=== PATIENT | female | born 1960 | race Caucasian/White ===

== ENCOUNTER 2016-10-23 19:29 | Inpatient (IN) ==
--- NOTE | 2016-10-23 19:52 | Emergency Department Report ---
Psych HPI - General Stated Complaint: Evaluation for [facility] Time Seen by Provider: 10/23/16 19:45 Source: patient Mode of arrival: ambulatory Limitations: no limitations - History of Present Illness HPI Narrative: She lives in a NH in [facility]. Has had her medications changed recently and staff at the NH have noticed that she is more aggressive and having some out bursts. They have been accepted to the [facility] unit here in [place] and are in [place] for medical clearance. She has not had any other concerns. MD complaint: other (increased aggressiveness) Onset (ago): day(s) Duration: constant Prior Hospitalization: No Relieving factors: none Exacerbating factors: none Associated psychiatric symptoms: none Associated symptoms: denies other symptoms Treatments prior to arrival: none Review of Systems Constitutional: Denies: fever, chills Cardiovascular: Denies: dyspnea on exertion Respiratory: Denies: cough, dyspnea, wheezes Gastrointestinal: Denies: nausea, vomiting, diarrhea, constipation Integumentary: Denies: rash PFSH Frontal/temporal dementia Surgical History: Unable to obtain - Social History Smoking status: Never smoker Substance use type: does not use Alcohol intake frequency: does not drink Physical Exam - Limitations Limitations: altered mental status - General General appearance: alert - Normal Exams: Neck:: Full range of motion, without adenopathy, JVD, bruits or thyromegaly Chest/Respirations:: Clear all burrows, with good airflow, and symmetry bilaterally Cardiovascular:: Regular rate and rhythm, without murmur or gallop, Pulses 2+ all extremities, capillary refill, <2 seconds all extremities Abdomen:: Bowel sounds positive, soft, non-tender, non-distended, no hepatosplenomegaly, masses or bruits noted Lymphatic:: No lymphadenopathy, or lymphedema noted Integumentary:: No rashes, hives, or bruising noted Neurological:: Patient is alert Psychiatric:: Patient exhibits, appropriate attention, emotion and affect - Psychiatric Psychiatric exam: Present: other (She is very active and is pacing around in the unit. Is redirectable) Psych - Differential Diagnosis Likely: acute psychosis, depression, drug-induced psychotic disorder, acute anxiety Disposition Clinical Impression: Dementia with behavioral problem Qualifiers: Dementia type: associated with other underlying disease Qualified Code(s): F02.81 - Dementia in other diseases classified elsewhere with behavioral disturbance Disposition: 63 To Psych Hosp/Unit Print Language: Emirati Condition: Stable Time of Disposition: 19:53 - Seen By: midlevel
--- OUTSIDE RECORDS SUMMARY | 2016-10-23 19:59 | External Medical Summary | Continuity of Care Document ---
:1960 Author Organization [facility] Allergies Active Description Code Type Severity Reaction Onset Reported/ Identified Relationship Clinical to Patient Status Yes No Known No Drug Unknown N/A 09/16/2015 Allergies Known Aller Aller gy gies Medications Problems Procedures Results Test Result Range CHEM/HEM PROFILE-BEDSIDE - 09/16/15 14:51 POTASSIUM 3.7 mmol/L 3.5-5.3 METHOD Bedside ANION GAP 19 mmol/L 10-20 METHOD Bedside GLUCOSE 86 mg/dL 70-99 BLOOD UREA NITROGEN 9 mg/dL 7-20 CREATININE 0.8 mg/dL 0.6-1.0 HEMOGLOBIN 13.6 gm/dL 12.0-16.0 HEMATOCRIT 40.0 % 37.0-47.0 SODIUM 140 mmol/L 135-148 CHLORIDE 107 mmol/L 98-110 CARBON DIOXIDE 18 mmol/L 21-32 CALCIUM IONIZED 4.4 mg/dL 4.5-5.3 TROPONIN I BEDSIDE - 09/16/15 14:55 METHOD Bedside TROPONIN I < 0.04 ng/mL < 0.11 URINALYSIS, ROUTINE - 09/16/15 17:35 UA LEUKOCYTE ESTERASE DIPSTICK NEGATIVE NEGATIVE UA NITRITE DIPSTICK NEGATIVE NEGATIVE UA PROTEIN DIPSTICK NEGATIVE NEGATIVE UA GLUCOSE DIPSTICK NEGATIVE NEGATIVE UA KETONE DIPSTICK NEGATIVE NEGATIVE UA UROBILINOGEN DIPSTICK NORMAL NORMAL UA BILIRUBIN DIPSTICK NEGATIVE NEGATIVE UA BLOOD DIPSTICK NEGATIVE NEGATIVE UA SPECIFIC GRAVITY 1.020 1.015-1.025 UR PH 7.0 5.0-7.0 Encounters ACCT Visit Discharge Status Pt. Type Provider Facility Loc./Unit Complaint No. Date/Time [id number] 09/16/2015 09/16/2015 DIS Emergency Tawny MESSER, Avery ReillyEDS [id number] 13:34:00 18:07:00 [facility]
--- OUTSIDE RECORDS SUMMARY | 2016-10-23 19:59 | External Medical Summary | Referral Summary ---
:1960 Author Organization [facility] Address [address] [place] [address] Care Team Providers Name Role Phone Isaiah Thomas Primary Care Physician Encounter [facility] [id number] Date(s): 08/09/15 - 08/09/15 [facility] Medicine [address] [place] [address]- [place] Discharge Diagnosis: Dementia Discharge Diagnosis: Depression Discharge Diagnosis: Shoulder pain Discharge Disposition: -Home or Self Care Attending Physician: Isaiah Thomas MD Admitting Physician: Isaiah Thomas MD Vital Signs Most recent to oldest [Reference Range]: 1 Blood Pressure [90-140/60-90 mmHg] 118/72mmHg (08/09/15 11:11 AM) Problem List Condition Effective Dates Status Health Status Informant Dementia(Confirmed) Active Depression(Confirmed) Active Skin disorder(Confirmed) Active Kidney disease(Confirmed) Active Kidney stones(Confirmed) Active Osteoarthritis(Confirmed) Active TMJ disease(Confirmed) Active Allergies, Adverse Reactions, Alerts No Known Medication Allergies Medications busPIRone 5 mg oral tablet 5 mg 1 tabs, Oral, BID, # 60 tabs, 5 Refill(s), Pharmacy: [facility], 1 tabs Oral BID,x30 days Start Date: 08/09/15 Stop Date: 02/05/16 Status: Ordereddiclofenac 1% topical gel 1 dayna, Topical, QID, as needed for pain, # 100 g, 5 Refill(s), Pharmacy: [facility] Start Date: 03/28/15 Status: OrderedPARoxetine 40 mg oral tablet 40 mg 1 tabs, Oral, Daily, # 30 tabs, 5 Refill(s) Start Date: 08/09/15 Stop Date: 02/05/16 Status: Ordered Results No data available for this section Immunizations Vaccine Date Refusal Reason influenza virus vaccine, inactivated 03/28/15 influenza virus vaccine, inactivated 03/28/14 Procedures Procedure Date Related Diagnosis Body Site section Social History Social History Type Response Smoking Status Never smoker Assessment and Plan Extracted from: Title:Office Visit Note Author:Isaiah Thomas MD Date:08/09/15 Assessment/Plan 1.Shoulder pain Follow-up with orthopedics as scheduled 2.Dementia 3.Depression Increaseparoxetine seen to 40 mg daily A new prescription for BuSpar was provided. Dosage, benefits and side effects were discussed. For details on dosing and instructions, please refer to the medication list. Followup if no improvement. [ ] Anticipate follow-up within the next couple months Orders: busPIRone, 5 mg 1 tabs, Oral, BID, # 60 tabs, 5 Refill(s), [facility], 1 tabs Oral BID,x30 days PARoxetine, 40 mg 1 tabs, Oral, Daily, # 30 tabs, 5 Refill(s)
--- OUTSIDE RECORDS SUMMARY | 2016-10-23 19:59 | External Medical Summary ---
:1960 Author Organization [employer] Care Team Providers Name Role Phone Joseph Latham Provider Role Unavailable Allergies No Known Allergies Problems Problem Type Condition ICD-9 Code Onset Dates Condition Status Assessment Frontotemporal dementia 331.19 Active Medications No Known Medications Procedures Procedure Coding System Code Date PSYTX PT&/FAMILY 45 MINUTES CPT-4 66931 Mar 20, 2014 NEUROPSYCH TST BY PSYCH/PHYS CPT-4 21149 Mar 20, 2014 Results No Known Results Summary Purpose [employer] Submission
--- OUTSIDE RECORDS SUMMARY | 2016-10-23 19:59 | External Medical Summary ---
:1960 Author Organization [employer] Care Team Providers Name Role Phone Adelso Portillo Provider Role Unavailable Allergies No Known Allergies Problems No Known Problems Medications No Known Medications Results No Known Results Summary Purpose [employer] Submission
--- OUTSIDE RECORDS SUMMARY | 2016-10-23 19:59 | External Medical Summary | Referral Summary ---
:1960 Author Care Team Providers Name Role Phone Isaiah Thomas Primary Care Physician Encounter [facility] Date(s): 07/14/14 - 07/14/14 [facility] [address] [place], [place] [address] Discharge Disposition: Home or Self Care Attending Physician: Isaiah Thomas MD Admitting Physician: Isaiah Thomas MD Vital Signs Most recent to oldest [Reference Range]: 1 Peripheral Pulse Rate [60-100 bpm] 73 bpm (07/14/14 3:36 PM) Blood Pressure [90-140/60-90 mmHg] 132/66mmHg (07/14/14 3:36 PM) Most recent to oldest [Reference Range]: 1 SpO2 99 % (07/14/14 3:36 PM) Problem List Condition Effective Dates Status Health Status Informant Depression(Confirmed) Active Skin disorder(Confirmed) Active Kidney disease(Confirmed) Active Kidney stones(Confirmed) Active Osteoarthritis(Confirmed) Active TMJ disease(Confirmed) Active Allergies, Adverse Reactions, Alerts No Known Medication Allergies Medications Augmentin 875 mg-125 mg oral tablet 1 tabs, Oral, q12hr, X 10 days, # 20 tabs, 0 Refill(s), Pharmacy: [facility] #[id number] Start Date: 07/14/14 Stop Date: 07/24/14 Status: Ordereddiclofenac potassium 50 mg oral tablet 1 tabs, Oral, q8hr, as needed for pain, # 30 tabs, 0 Refill(s), Pharmacy: [email or web address], 1 tabs Oral q8hr,PRN:as needed for pain Start Date: 03/29/14 Status: OrderedDiflucan 150 mg oral tablet See Instructions, 1 po one time. May repeat after 3 days if needed., # 1 tabs, 1 Refill(s), Pharmacy: [facility] #[id number], 1 po one time. May repeat after 3 days if needed. Special Instructions: 1 po one time. May repeat after 3 days if needed. Start Date: 07/14/14 Stop Date: 07/15/14 Status: OrderedNamenda Oral, BID, 0 Refill(s) Start Date: 07/14/14 Status: OrderedPaxil 20 mg oral tablet 1 tabs, Oral, Daily, # 30 tabs, 3 Refill(s), Pharmacy: [id number], 1 tabs Oral Daily Start Date: 04/28/14 Status: OrderedPromethazine with Codeine 6.25 mg-10 mg/5 mL oral syrup See Instructions, as needed for cough, 1-2 tsp po q 6hrs prn cough, # 4 oz, 0 Refill(s) Special Instructions: 1-2 tsp po q 6hrs prn cough Start Date: 07/14/14 Stop Date: 07/15/14 Status: Ordered Results No data available for this section Immunizations Vaccine Date Refusal Reason influenza virus vaccine, inactivated 03/28/14 Procedures Procedure Date Related Diagnosis Body Site section Social History Social History Type Response Smoking Status Unknown if ever smoked Assessment and Plan No data available for this section
--- OUTSIDE RECORDS SUMMARY | 2016-10-23 19:59 | External Medical Summary ---
:[address] [facility] Address [address] [place] [address] Care Team Providers Name Role Phone Adelso Portillo Unavailable Unavailable PROBLEMS Type Condition ICD9-CM GGQ55-TS Onset Condition SNOMED Code Code Code Dates Status Problem Osteoarthritis of M19.012 Active 97529049 left shoulder, unspecified osteoarthritis type Problem Depressive F06.31 Active disorder due to another medical condition with depressive features Problem Pain in left M25.512 Active 80204875 shoulder Problem Other chronic pain G89.29 Active 88914072 Problem Other G31.09 Active 201298538 frontotemporal dementia Problem Anxiety F41.9 Active 68623186 Problem 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
--- OUTSIDE RECORDS SUMMARY | 2016-10-23 19:59 | External Medical Summary ---
:1960 Author Organization [employer] Care Team Providers Name Role Phone Joseph Latham Provider Role Unavailable Allergies No Known Allergies Problems Problem Type Condition ICD-9 Code Onset Dates Condition Status Assessment Unspecified persistent mental 294.9 Active disorders due to conditions classified elsewhere Medications No Known Medications Procedures Procedure Coding System Code Date NEUROPSYCH TESTING BY JODIE CPT-4 21090 Feb 27, 2014 Results No Known Results Summary Purpose [employer] Submission
--- OUTSIDE RECORDS SUMMARY | 2016-10-23 19:59 | External Medical Summary ---
:1960 Demographics Preferred Language Unknown Marital Status Unknown Anglican Affiliation Unknown Race Unknown Ethnic Group Unknown Author Organization [employer] Care Team Providers Name Role Phone Adelso Portillo Provider Role Unavailable Allergies, Adverse Reactions, Alerts Substance Reaction Event Type Namenda "adverse side effect" listed in medical record Drug Allergy buspirone "adverse side effect" listed in medical record Drug Allergy Problems Problem Type Condition Code Onset Dates Condition Status Assessment Dementia in other diseases F02.81 Active classified elsewhere with behavioral disturbance Assessment Osteoarthritis, unspecified M19.90 Active osteoarthritis type, unspecified site Assessment Other frontotemporal dementia G31.09 Active Assessment Depressive disorder due to another F06.31 Active medical condition with depressive features Assessment Anxiety F41.9 Active Assessment Insomnia due to medical condition G47.01 Active Medications Medication Code System Code Instructions Start Date End Date Status Dosage Seroquel NDC 70751 25 mg orally daily 1 tab(s) Mobic NDC 74889 7.5 mg orally once Jan 17, 1 tab(s) a day 2015 Xanax NDC 1327 0.5 mg orally q6hr 1 tab(s) PRN anxiety melatonin NDC 93855 3 mg orally once 1 tab(s) (at bedtime) Paxil NDC 4517 40 mg orally once a 1 tab(s) day Procedures Procedure Coding System Code Date SNF Initial Level 2 CPT-4 68320 Dec 20, 2015 Results No Known Results Summary Purpose [employer] Submission
--- OUTSIDE RECORDS SUMMARY | 2016-10-23 19:59 | External Medical Summary ---
:1960 Author Organization [employer] Care Team Providers Name Role Phone Robby Barraza Provider Role Unavailable Allergies, Adverse Reactions, Alerts Substance Reaction Event Type Wellbutrin Not specified. Drug Allergy Celexa Not specified. Drug Allergy Problems Problem Type Condition ICD-9 Code Onset Dates Condition Status Assessment Diverticulitis 562.11 Active Assessment URI (upper respiratory 465.9 Active infection) Problem Generalized anxiety disorder 300.02 Active Assessment Dysuria 788.1 Active Medications Medication Code System Code Instructions Start Date End Date Status Dosage Mobic MEDISPAN [address] 15 MG Orally Once Jun 06, Active 1 tablet -01 a day 2013 Bactrim DS MEDISPAN [address] 800-160 MG Orally Feb 07, Active 1 tablet -01 every 12 hrs 2013 Paxil MEDISPAN [address] 20 MG Orally Once Jan 15, Active 1 TABLET -13 a day 2010 Procedures Procedure Coding System Code Date OFFICE VISITEST PT CPT-4 82034 Feb 07, 2014 URINALYSIS CPT-4 13723 Feb 07, 2014 Vital Signs Date/Time: Feb 07, 2014 Blood Pressure Systolic 126 mm Hg Height 60 in Weight 137.0 lbs Blood Pressure Diastolic 78 mm Hg Results Urinalysis OTHER CASTS(-NONE/LPF lpf) 0 MUCOUS(-NONE/HPF hpf) 0 CRYSTALS(-NONE/HPF hpf) 0 WBC(-0-5/HPF hpf) 0 RBC(-0-2/HPF hpf) 0 SQUAMOUS EPITH(-FEW/HPF hpf) 0 BACTERIA(-NONE/HPF hpf) 0 Summary Purpose [employer] Submission
--- OUTSIDE RECORDS SUMMARY | 2016-10-23 19:59 | External Medical Summary | Referral Summary ---
:1960 Author Organization [facility] Address [address] [place] [address] Care Team Providers Name Role Phone Isaiah Thomas Primary Care Physician Encounter [facility] [id number] Date(s): 10/25/15 - 10/25/15 [facility] Medicine [address] [place] [address]- [place] Discharge Disposition: 01-Home or Self Care Attending Physician: Isaiah Thomas MD Admitting Physician: Isaiah Thomas MD Vital Signs Most recent to oldest [Reference Range]: 1 Blood Pressure [90-140/60-90 mmHg] 122/68mmHg (10/25/15 1:23 PM) Problem List Condition Effective Dates Status Health Status Informant Dementia(Confirmed) Active Depression(Confirmed) Active Skin disorder(Confirmed) Active Mixed dyslipidemia(Confirmed) Active Kidney disease(Confirmed) Active Kidney stones(Confirmed) Active Osteoarthritis(Confirmed) Active TMJ disease(Confirmed) Active Allergies, Adverse Reactions, Alerts No Known Medication Allergies Medications amoxicillin 875 mg oral tablet 875 mg 1 tabs, Oral, BID, X 7 days, # 14 tabs, 0 Refill(s), Pharmacy: [facility], 1 tabs Oral BID,x7 days Start Date: 10/25/15 Stop Date: 11/01/15 Status: Ordereddiclofenac 1% topical gel 1 dayna, Topical, QID, as needed for pain, # 100 g, 5 Refill(s), Pharmacy: [facility] Start Date: 03/28/15 Status: OrderedPARoxetine 40 mg oral tablet 40 mg 1 tabs, Oral, Daily, # 30 tabs, 5 Refill(s) Start Date: 08/09/15 Stop Date: 02/05/16 Status: OrderedXanax 0.25 mg oral tablet 0.25 mg 1 tabs, Oral, Daily, as needed for anxiety, X 30 days, # 30 tabs, 0 Refill(s) Start Date: 10/25/15 Stop Date: 11/24/15 Status: Ordered Results Urinalysis Most recent to oldest [Reference Range]: 1 UA Color Yellow (10/25/15 1:38 PM) UA Appear Sl Cloudy (10/25/15 1:38 PM) UA pH [5.0-8.0] 5.0 (10/25/15 1:38 PM) UA Leuk Est [Negative] Negative (10/25/15 1:38 PM) UA Nitrite [Negative] Negative (10/25/15 1:38 PM) UA Protein [Negative] Negative (10/25/15 1:38 PM) UA Glucose [Negative] Negative (10/25/15 1:38 PM) UA Ketones [Negative] Negative (10/25/15 1:38 PM) UA Urobilinogen [<=1.0 mg/dL] 0.2 mg/dL (10/25/15 1:38 PM) UA Bili [Negative] Negative (10/25/15 1:38 PM) UA Blood [Negative] Trace *ABN* (10/25/15 1:38 PM) UA Spec Grav [1.003-1.030] >=1.030 (10/25/15 1:38 PM) Type Cl Catch (10/25/15 1:38 PM) UA WBC [0-4] 5-10 *ABN* (10/25/15 1:38 PM) UA RBC [0-4] 0-4 (10/25/15 1:38 PM) Epithelial Cells 2-5 (10/25/15 1:38 PM) UA Hyal Cast [0-3] 4-6 *ABN* (10/25/15 1:38 PM) Immunizations Vaccine Date Refusal Reason influenza virus vaccine, inactivated 03/28/15 influenza virus vaccine, inactivated 03/28/14 Procedures Procedure Date Related Diagnosis Body Site section Social History Social History Type Response Smoking Status Never smoker Assessment and Plan No data available for this section
--- OUTSIDE RECORDS SUMMARY | 2016-10-23 19:59 | External Medical Summary | Referral Summary ---
:1960 Author Organization [facility] Address [address] [place] [address] Care Team Providers Name Role Phone Isaiah Thomas Primary Care Physician Encounter [facility] Date(s): 03/28/15 - 03/28/15 [facility] Medicine [address] [place] [address]- [place] Discharge Disposition: 01-Home or Self Care Attending Physician: Isaiah Thomas MD Admitting Physician: Isaiah Thomas MD Vital Signs Most recent to oldest [Reference Range]: 1 Peripheral Pulse Rate [60-100 bpm] 64 bpm (03/28/15 10:17 AM) Blood Pressure [90-140/60-90 mmHg] 122/80mmHg (03/28/15 10:17 AM) SpO2 99 % (03/28/15 10:17 AM) Problem List Condition Effective Dates Status Health Status Informant Depression(Confirmed) Active Skin disorder(Confirmed) Active Kidney disease(Confirmed) Active Kidney stones(Confirmed) Active Osteoarthritis(Confirmed) Active TMJ disease(Confirmed) Active Allergies, Adverse Reactions, Alerts No Known Medication Allergies Medications diclofenac 1% topical gel 1 dayna, Topical, QID, as needed for pain, # 100 g, 5 Refill(s), Pharmacy: [facility] Start Date: 03/28/15 Status: Ordereddiclofenac potassium 50 mg oral tablet 1 tabs, Oral, q8hr, as needed for pain, # 30 tabs, 0 Refill(s), Pharmacy: [id number], 1 tabs Oral q8hr,PRN:as needed for pain Start Date: 03/29/14 Status: OrderedPARoxetine 20 mg oral tablet See Instructions, TAKE 1 TABLET BY MOUTH EVERY DAY, # 30 tabs, 11 Refill(s), Pharmacy: [facility], TAKE 1 TABLET BY MOUTH EVERY DAY Start Date: 03/28/15 Status: Ordered Results Hematology Most recent to oldest [Reference Range]: 1 WBC [4.8-10.8 10*3/uL] 5.9 10*3/uL (03/28/15 11:11 AM) RBC [4.00-5.20] 4.38 (03/28/15 11:11 AM) Hgb [12.0-16.0 gm/dL] 14.2 gm/dL (03/28/15 11:11 AM) Hct [37.0-47.0 %] 39.2 % (03/28/15 11:11 AM) MCV [82.0-99.0 fL] 89.5 fL (03/28/15 11:11 AM) MCH [27.0-32.0 pg] 32.4 pg *HI* (03/28/15 11: AM) MCHC [32.0-36.0 gm/dL] 36.2 gm/dL *HI* (03/28/15 11:11 AM) RDW [11.5-14.5 %] 11.9 % (03/28/15 11:11 AM) Platelet [150-400 10*3/uL] 308 10*3/uL (03/28/15 11:11 AM) MPV [8.8-14.8 fL] 9.8 fL (03/28/15 11:11 AM) Immature Granulocytes [0.0-1.0 %] 0.0 % (03/28/15 11:11 AM) Neutrophils [51-75 %] 62 % (03/28/15 11:11 AM) Lymphocytes [20-46 %] 24 % (03/28/15 11:11 AM) Monocytes [4-11 %] 8 % (03/28/15 11:11 AM) Eosinophils [0-4 %] 4 % (03/28/15 11:11 AM) Basophils [0-2 %] 2 % (03/28/15 11:11 AM) Neutro Absolute [1.90-7.00 10*3] 3.64 10*3 (03/28/15 11:11 AM) Lymph Absolute [0.80-3.30 10*3] 1.42 10*3 (03/28/15 11:11 AM) [place] Absolute [0.30-1.00 10*3] 0.49 10*3 (03/28/15 11:11 AM) Eos Absolute [0.00-0.50 10*3] 0.22 10*3 (03/28/15 11:11 AM) Baso Absolute [0.00-0.20 10*3] 0.09 10*3 (03/28/15 11:11 AM) Chemistry Most recent to oldest [Reference Range]: 1 Sodium Lvl [135-144 mEq/L] 140 mEq/L (03/28/15 11: AM) Potassium Lvl [3.5-5.2 mEq/L] 4.1 mEq/L (03/28/15 11: AM) Chloride [99-111 mEq/L] 106 mEq/L (03/28/15 11: AM) CO2 [22-31 mEq/L] 27 mEq/L (03/28/15: AM) AGAP [3-20] 7 (03/28/15 11: AM) BUN [10-20 mg/dL] 9 mg/dL *LOW* (03/28/15 AM) Glucose Lvl [70-99 mg/dL] 92 mg/dL (03/28/15 11: AM) Creatinine Lvl [0.57-1.11 mg/dL] 0.78 mg/dL (03/28/15 11: AM) eGFR [>60 mL/min] >60 mL/min1 (03/28/15: AM) Calcium Lvl [8.9-10.5 mg/dL] 9.1 mg/dL (03/28/15 11: AM) Albumin Lvl [3.5-5.0 gm/dL] 3.9 gm/dL (03/28/15 AM) Total Protein [6.4-8.3 gm/dL] 6.0 gm/dL *LOW* (03/28/15 AM) Globulin [1.8-4.0 gm/dL] 2.1 gm/dL (03/28/15 11 AM) ALT [0-55 U/L] 40 U/L (03/28/15 11:11 AM) AST [5-34 U/L] 41 U/L *HI* (03/28/15 11 AM) Alk Phos [40-150 U/L] 98 U/L (03/28/15 AM) Bili Total [0.2-1.2 mg/dL] 0.5 mg/dL (03/28/15 AM) Chol [0-199 mg/dL] 239 mg/dL *HI* (03/28/15 AM) Trig [0-149 mg/dL] 113 mg/dL (03/28/15 11 AM) HDL [40-84 mg/dL] 43 mg/dL (03/28/15 AM) LDL [0-130 mg/dL] 173 mg/dL *HI* (03/28/15 AM) VLDL Cholesterol [0-28 mg/dL] 23 mg/dL (03/28/15 AM) Cardiac Risk [0.0-5.0] 5.6 *HI* (03/28/15 AM) TSH with Reflex Free T4 [0.35-4.94] 1.39 (03/28/15 11: AM) 1Result Comment: Multiply eGFR results by 1.21 for race.Urinalysis Most recent to oldest [Reference Range]: 1 UA Color Yellow (03/28/15 10:33 AM) UA Appear Clear (03/28/15 10:33 AM) UA pH [5.0-8.0] 6.5 (03/28/15 10:33 AM) UA Leuk Est [Negative] Negative (03/28/15 10:33 AM) UA Nitrite [Negative] Negative (03/28/15 10:33 AM) UA Protein [Negative] Trace *ABN* (03/28/15 10:33 AM) UA Glucose [Negative] Negative (03/28/15 10:33 AM) UA Ketones [Negative] Trace *ABN* (03/28/15 10:33 AM) UA Urobilinogen 1.0 mg/dL (03/28/15 10:33 AM) UA Bili [Negative] Positive *ABN* (03/28/15 10:33 AM) UA Blood Negative (03/28/15 10:33 AM) UA Spec Grav [1.003-1.030] 1.015 (03/28/15 10:33 AM) Type Clean Catch (03/28/15 10:33 AM) Immunizations Vaccine Date Refusal Reason influenza virus vaccine, inactivated 03/28/15 influenza virus vaccine, inactivated 03/28/14 Procedures Procedure Date Related Diagnosis Body Site Collection of venous blood by venipuncture 03/28/15 section Social History Social History Type Response Smoking Status Never smoker Assessment and Plan No data available for this section
--- OUTSIDE RECORDS SUMMARY | 2016-10-23 19:59 | External Medical Summary ---
:1960 Author Organization [facility] Spec Address [address] [place] [address] Care Team Providers Name Role Phone Adelso Portillo Unavailable Unavailable PROBLEMS Type Condition ICD9-CM [id number] Onset Condition SNOMED Code Code Code Dates Status Problem Osteoarthritis of M19.012 Active 73916648 left shoulder, unspecified osteoarthritis type Problem Depressive F06.31 Active disorder due to another medical condition with depressive features Problem Pain in left M25.512 Active 23743154 shoulder Assessment Dementia in other F02.81 25 September, Active 7583178363251 diseases 2017 classified elsewhere with behavioral disturbance Problem Other chronic pain G89.29 Active 76881960 Problem Other G31.09 Active 459416954 frontotemporal dementia Problem Anxiety F41.9 Active 37344206 Problem 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 Active medical condition Problem Dementia in other F02.81 Active 5967150702422 diseases classified elsewhere with behavioral disturbance Problem Osteoarthritis, M19.90 Active 774031075 unspecified osteoarthritis type, unspecified site ALLERGIES Substance Reaction Event Type Date Status Namenda "adverse side effect" listed in medical Drug Allergy September, Active record buspirone "adverse side effect" listed in medical Drug Allergy September, Active record SOCIAL HISTORY No smoking Hx information available PLAN OF CARE VITAL SIGNS MEDICATIONS Medication Instructions Dosage Frequency Start End Duration Status Date Date Paxil 40 mg orally once a day 1 tab(s) 24h Active Haldol 5 mg/mL intramuscularly q4h 0.5ml Active prn Mobic 15 mg orally once a day 1 tab(s) 24h 30 day(s) Active risperidone 2 orally bid 1 tab 12h Active mg Xanax 0.5 mg orally q6hr PRN 1 tab(s) Active anxiety melatonin 3 mg orally once (at 1 tab(s) Active bedtime) Mobic 15 mg orally daily 1 tab 24h Active RESULTS No Results PROCEDURES Procedure Date Ordered Related Diagnosis Body Site Subseq Care-Minor September 25, 2016 IMMUNIZATIONS No Known Immunizations
--- OUTSIDE RECORDS SUMMARY | 2016-10-23 19:59 | External Medical Summary ---
:1960 Author Organization [facility] Spec Address [address] [place] [address] Care Team Providers Name Role Phone Aviva Yadav Unavailable Unavailable PROBLEMS Type Condition ICD9-CM [id number] Onset Condition SNOMED Code Code Code Dates Status Problem Osteoarthritis of M19.012 Active 74709042 left shoulder, unspecified osteoarthritis type Problem Depressive F06.31 Active disorder due to another medical condition with depressive features Problem Pain in left M25.512 Active 81786542 shoulder Problem Other chronic pain G89.29 Active 09426470 Problem Other G31.09 Active 659066328 frontotemporal dementia Problem Anxiety F41.9 Active 62476208 Problem 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
--- OUTSIDE RECORDS SUMMARY | 2016-10-23 19:59 | External Medical Summary | Referral Summary ---
:1960 Author Organization [facility] Address [address] [place] [address] Care Team Providers Name Role Phone Isaiah Thomas Primary Care Physician Encounter [facility] [id number] Date(s): 07/24/15 - 07/24/15 [facility] [address] [place] [address]- [place] Discharge Disposition: 01-Home or Self Care Attending Physician: Isaiah Thomas MD Admitting Physician: Isaiah Thomas MD Vital Signs Most recent to oldest [Reference Range]: 1 Peripheral Pulse Rate [60-100 bpm] 81 bpm (07/24/15 4:13 PM) SpO2 98 % (07/24/15 4:13 PM) Problem List Condition Effective Dates Status Health Status Informant Dementia(Confirmed) Active Depression(Confirmed) Active Skin disorder(Confirmed) Active Kidney disease(Confirmed) Active Kidney stones(Confirmed) Active Osteoarthritis(Confirmed) Active TMJ disease(Confirmed) Active Allergies, Adverse Reactions, Alerts No Known Medication Allergies Medications diclofenac 1% topical gel 1 dayna, Topical, QID, as needed for pain, # 100 g, 5 Refill(s), Pharmacy: [facility] Start Date: 03/28/15 Status: OrderedNorco 5 mg-325 mg oral tablet See Instructions, 1-2 po q 6hrs prn pain, # 30 tabs, 0 Refill(s) Start Date: 07/24/15 Stop Date: 07/25/15 Status: OrderedPARoxetine 20 mg oral tablet See Instructions, TAKE 1 TABLET BY MOUTH EVERY DAY, # 30 tabs, 0 Refill(s), Pharmacy: [id number], TAKE 1 TABLET BY MOUTH EVERY DAY Start Date: 06/01/15 Status: Ordered Results No data available for this section Immunizations Vaccine Date Refusal Reason influenza virus vaccine, inactivated 03/28/15 influenza virus vaccine, inactivated 03/28/14 Procedures Procedure Date Related Diagnosis Body Site section Social History Social History Type Response Smoking Status Never smoker Assessment and Plan No data available for this section
--- OUTSIDE RECORDS SUMMARY | 2016-10-23 19:59 | External Medical Summary ---
:1960 Author Organization [facility] Spec Address [address] [place] [address] Care Team Providers Name Role Phone Aviva Yadav Unavailable Unavailable PROBLEMS Type Condition ICD9-CM [id number] Onset Condition SNOMED Code Code Code Dates Status Problem Osteoarthritis of M19.012 Active 60790632 left shoulder, unspecified osteoarthritis type Problem Depressive F06.31 Active disorder due to another medical condition with depressive features Problem Pain in left M25.512 Active 24927580 shoulder Assessment Dementia in other F02.81 02 October, Active 0641665975935 diseases 2017 classified elsewhere with behavioral disturbance Problem Other chronic pain G89.29 Active 98937970 Problem Other G31.09 Active 994720112 frontotemporal dementia Problem Anxiety F41.9 Active 74600083 Problem 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 Active medical condition Problem Dementia in other F02.81 Active 9609330710258 diseases classified elsewhere with behavioral disturbance Problem Osteoarthritis, M19.90 Active 231198403 unspecified osteoarthritis type, unspecified site ALLERGIES Substance [...] once a day 1 tab(s) 24h Active melatonin 3 mg orally once (at 1 tab(s) Active bedtime) Mobic 15 mg orally daily 1 tab 24h Active Xanax 0.5 mg orally q6hr PRN 1 tab(s) Active anxiety Haldol 5 mg/mL intramuscularly q4h 0.5ml Active prn risperidone 2 orally bid 1 tab 12h Active mg Mobic 15 mg orally once a day 1 tab(s) 24h 30 day(s) Active RESULTS No Results PROCEDURES Procedure Date Ordered Related Diagnosis Body Site Subseq Care-Minor October 02, 2016 IMMUNIZATIONS No Known Immunizations
--- OUTSIDE RECORDS SUMMARY | 2016-10-23 19:59 | External Medical Summary ---
:1960 Author Organization [facility] Spec Address [address] [place] [address] Care Team Providers Name Role Phone Adelso Portillo Unavailable Unavailable PROBLEMS Type Condition ICD9-CM [id number]-[id number] Onset Condition SNOMED Code Code Code Dates Status Problem Osteoarthritis of M19.012 Active 85052959 left shoulder, unspecified osteoarthritis type Problem Depressive F06.31 Active disorder due to another medical condition with depressive features Problem Pain in left M25.512 Active 54207714 shoulder Problem Other chronic pain G89.29 Active 42695558 Problem Other G31.09 Active 744071733 frontotemporal dementia Problem Anxiety F41.9 Active 68851587 Problem 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
--- OUTSIDE RECORDS SUMMARY | 2016-10-23 19:59 | External Medical Summary | Referral Summary ---
:1960 Author Organization [facility] Address [address] [place] [address] Care Team Providers Name Role Phone Isaiah Thomas Primary Care Physician Encounter [facility] [id number] Date(s): 07/17/15 - 07/17/15 [facility] [address] [place] [address]- [place] Discharge Diagnosis: Right ear pain Discharge Diagnosis: Left shoulder pain Discharge Disposition: 01-Home or Self Care Attending Physician: Isaiah Thomas MD Admitting Physician: Isaiah Thomas MD Vital Signs Most recent to oldest [Reference Range]: 1 Peripheral Pulse Rate [60-100 bpm] 76 bpm (07/17/15 2:42 PM) SpO2 98 % (07/17/15 2:42 PM) Problem List Condition Effective Dates Status Health Status Informant Dementia(Confirmed) Active Depression(Confirmed) Active Skin disorder(Confirmed) Active Kidney disease(Confirmed) Active Kidney stones(Confirmed) Active Osteoarthritis(Confirmed) Active TMJ disease(Confirmed) Active Allergies, Adverse Reactions, Alerts No Known Medication Allergies Medications diclofenac 1% topical gel 1 dayna, Topical, QID, as needed for pain, # 100 g, 5 Refill(s), Pharmacy: [facility] Start Date: 03/28/15 Status: OrderedPARoxetine 20 mg oral tablet See Instructions, TAKE 1 TABLET BY MOUTH EVERY DAY, # 30 tabs, 0 Refill(s), Pharmacy: [id number], TAKE 1 TABLET BY MOUTH EVERY DAY Start Date: 06/01/15 Status: Ordered Results No data available for this section Immunizations Vaccine Date Refusal Reason influenza virus vaccine, inactivated 03/28/15 influenza virus vaccine, inactivated 03/28/14 Procedures Procedure Date Related Diagnosis Body Site section Social History Social History Type Response Smoking Status Never smoker Assessment and Plan Extracted from: Title:Office Visit Note Author:Isaiah Thomas MD Date:07/17/15 Assessment/Plan 1.Left shoulder pain Probably mild rotator cuff strain and/or tendinopathy 2.Right ear pain No acute pathology indicated A new prescription for Medrol Dosepak was provided. Dosage, benefits and side effects were discussed. For details on dosing and instructions, please refer to the medication list. Followup if noimprovement. [ ] Anticipate physical therapy if she sees improvement with oral steroids. Reevaluation if not
[2016-10-23] MEDS ORDERED: MELATONIN 5 MG TABLET PO SCH (22:00)
[2016-10-23] MEDS: LORazepam 0.5 MG TABLET PO SCH (22:59)
[2016-10-23] MEDS: POLYETHYL GLYCOL 3350 17gm PACKET PO SCH (22:59)
[2016-10-24] MEDS: MIRTAZAPINE 15 MG TABLET PO SCH ×2 (01:17→21:05)
[2016-10-24 01:34] VITALS: BMI 21.3
[2016-10-24] MEDS: LORazepam 0.5 MG TABLET PO PRN ×2 (08:16→14:22)
[2016-10-24] MEDS: OLANZapine 5 MG TABLET PO SCH (08:17)
--- NOTE | 2016-10-24 08:23 | History & Physical Report ---
<Lindsey Cadena - Last Filed: 10/24/16 08:36> History of Present Illness Date: 10/24/16 Chief complaint: Pt unable to state HPI: Tamra Ontiveros is a 56 y/o woman with a dx of frontal lobe dementia who was seen in [facility] on 10/23/16 for medical clearance for [facility]. She has demonstrated psychomotor agitation and has needed constant monitoring. She has been anxious and irritable. She has had some aggressive behaviors, such as pushing and pinching staff and other residents at the half-way. Her PCP has attempted medication changes but these have been unsuccessful. Her appetite has been decreased and she's lost about 14 lbs since July. She is also reported to have problems falling asleep. PMH: anxiety, depression, CKD, kidney stones, dyslipidemia, OA, TMJ I saw Tmara in the morning of 10/24/16. She was very anxious, pacing, and frequently turning around. She repeatedly spoke phrases such as "I'm going home ", "I don't like you", and "My sister will get me". She was not able to be directed and she would not answer questions. She would not stop long enough to sit (or even stand still) for an exam, and when I asked to listen to her heart and lungs she immediately walked away quickly. Per nursing staff, this is how she has been all morning. Review of Systems ROS unobtainable: due to mental status PFSH Frontal lobe dementia Anxiety Depression CKD Kidney stones Mixed dyslipidemia (lipid panel 09/16/16: Trigs 74, HDL 46, LDL (142H), VLDL 15, Cardiac risk 4.4, nonHDL 157) OA TMJ Skin disorder Surgical History: Family History: Per accompanying records, her father had cancer. - Social History Smoking status: Never smoker Substance use type: does not use Alcohol intake frequency: does not drink Medications Home Medications Medication Instructions Recorded Confirmed Type ALPRAZolam [Xanax] 0.5 mg PO DAILY PRN 10/23/16 10/23/16 History ALPRAZolam [Xanax] 0.5 mg PO HS 10/23/16 10/23/16 History Haloperidol Inj [Haldol] 2.5 mg IM Q4H PRN 10/23/16 10/23/16 History Melatonin 3 mg PO HS 10/23/16 10/23/16 History Meloxicam [Mobic] 15 mg PO DAILY 10/23/16 10/23/16 History Mirtazapine [Remeron] 7.5 mg PO HS 10/23/16 10/23/16 History OLANZapine [Zyprexa] 5 mg PO DAILY 10/23/16 10/23/16 History Paroxetine [Paxil] 40 mg PO DAILY 10/23/16 10/23/16 History Peg 3350 17 G Packet [Miralax] 17 gm PO Q3D 10/23/16 10/23/16 History RisperiDONE [RisperDAL] 0.5 mg PO Q4H PRN 10/23/16 10/23/16 History Tizanidine HCl 2 mg PO Q8H PRN 10/23/16 10/23/16 History Allergies Allergy/AdvReac Type Severity Reaction Status Date / Time No Known Allergies Allergy Verified 10/23/16 19:53 Exam Vital Signs: Temp Pulse Resp BP Pulse Ox 97.3 F 67 22 107/65 97 10/23/16 21:37 10/23/16 21:37 10/23/16 21:37 10/23/16 21:37 10/23/16 21:37 Height: 1.5 m Weight: 48 kg Body Mass Index: 21.3 - Constitutional Present: thin, agitated. Absent: cooperative - Routine HEENT Exam Head: Present: atraumatic Eye: Absent: conjunctival icterus, scleral injection ENT: Present: mucous membranes dry (lips were dry) - Routine Neck Exam Comments: No observed skin or muscular conditions to exposed areas of neck - Routine Respiratory Exam Comments: Unable to auscultate, but patient was in no respiratory distress, even though she was constantly moving and pacing quickly - Routine Cardiovascular Exam Comments: Unable to auscultate heart tones or palpate pulses, but her skin color demonstrated good perfusion. - Routine Abdominal Exam Comments: Unable to examine abdomen. She was wearing a baggy sweatshirt so I could not assess for distention. - Routine Extremities Exam Comments: Unable to assess. No obvious edema or deformities. - Routine Skin Exam Present: intact, dry, warm - Routine Neurological Exam Present: alert, altered mental status - Routine Psychiatric Exam Present: agitated. Absent: normal affect, normal thought process, cooperative Results - Labs CBC & Chem 7: 10/24/16 04:53 10/24/16 04:53 Assessment and Plan (1) Mixed hyperlipidemia Current visit: Yes Status: Acute (2) Dementia with behavioral problem Current visit: Yes Status: Acute (3) Chronic kidney disease Current visit: Yes Status: Acute (4) Elevated LFTs Current visit: Yes Status: Acute Assessment and Plan: Agree with admission 1. Chart reviewed in detail -labs from Sep, 2016 (CBC, CMP, and lipid panel) were fairly unremarkable -Pt was unable to provide any personal history 2. Mild elevations in LFTs -new compared to labs from September -?med related 3. CKD -noted in chart -renal function is stable with creatinine of 0.7 and GFR of 86 4. Psych -unable to examine, doubt we would be able to successfully obtain any imaging or labs -eval pending Sepsis Assessment - Evaluation Sepsis screening result: No Definite Risk - Focused Exam Vital Signs Temp Pulse Resp BP Pulse Ox 10/23/16 21:37 97.3 F 67 22 107/65 97 Hospital Course Summary Disclaimer: The visit summary below is not to be considered part of the above Progress Note. Hospital Course: 10/24/16 08:47 Agree with admission 1. Chart reviewed in detail -labs from Sep, 2016 (CBC, CMP, and lipid panel) were fairly unremarkable -Pt was unable to provide any personal history 2. Mild elevations in LFTs -new compared to labs from September -?med related 3. CKD -noted in chart -renal function is stable with creatinine of 0.7 and GFR of 86 4. Psych -unable to examine, doubt we would be able to successfully obtain any imaging or labs -eval pending <Tiera Stiles - Last Filed: 10/24/16 21:09> History of Present Illness Date: 10/24/16 [facility] Patient Stated Medical History Dementia Yes Hx Incontinence Yes Hx Kidney Stones Yes Hx Renal Disease Yes Osteoarthritis Yes Other Musculoskeletal Yes: TMJ Depression Yes Exam Vital Signs: Temp Pulse Resp BP Pulse Ox 97.0 F 95 22 128/68 94 10/24/16 15:48 10/24/16 17:16 10/24/16 17:16 10/24/16 17:16 10/24/16 17:16 Height: 1.5 m Weight: 48 kg Results - Labs CBC & Chem 7: 10/24/16 04:53 10/24/16 04:53 Assessment and Plan (1) Dementia with behavioral problem Current visit: Yes Status: Acute (2) Mixed hyperlipidemia Current visit: Yes Status: Acute (3) Chronic kidney disease Current visit: Yes Status: Acute (4) Elevated LFTs Current visit: Yes Status: Acute Assessment and Plan: 10/24/2016-I reviewed this chart, the patient history, and the [employer]'s/PA's documented findings as above. We discussed and formulated the assessment and plan as above with the additions below.-Dr. Stiels I have reviewed the chart. Vital signs appear stable. CMP shows just mild elevation of transaminases. BUN is 19 and creatinine is 0.7. Pre-albumin is low at 12.3. TSH is normal. B-12 and folate are pending. Lipid panel is pending. RPR is pending. I was not able to examine the patient today because she was sleeping when I went by to see her and she had been quite agitated before that. The nurse did request that I did not awaken the patient for an examination. Will consult dietitian regarding malnutrition with low prealbumin. Sepsis Assessment - Focused Exam Vital Signs Temp Pulse Resp BP Pulse Ox 10/24/16 17:16 95 22 128/68 94 10/24/16 15:48 97.0 F 70 20 97 Hospital Course Summary Disclaimer: The visit summary below is not to be considered part of the above Progress Note.
[2016-10-24] MEDS ORDERED: PAROXETINE 40 MG TABLET PO SCH (09:00)
[2016-10-24] MEDS: MELOXICAM 15 MG TABLET PO SCH (12:21)
[2016-10-24] MEDS: RisperiDONE 0.5 MG TABLET PO PRN (12:24)
--- NOTE | 2016-10-24 14:57 | 24 Hour Neuropsychiatic Eval ---
Date of Admission: 10/23/16 20:00 Chief complaint: Agitation History of Present Illness: Patient is a 56-year-old female with a history of frontal lobe dementia who was admitted to [facility] on 10/23/16 from her NH due to increased aggression, agitation, pacing, mood changes. NH reported decreased in appetite with 14 lb. weight loss and difficulty falling asleep as well. PMH: anxiety, depression, CKD, kidney stones, dyslipidemia, OA, TMJ IPatient is sleeping during time of rounds and when I attempted to wake her (as she was lying upside down in bed), she responded "this sherri" and then went back to sleep. Per nursing staff, aron has been anxious, pacing, exit-seeking since admission. She did sleep 5+ hours overnight but this was interrupted at times. Patient only eats/drinks if nursing staff can catch her as she is pacing the halls. She does not respond to prompts/redirection. Has received multiple PRNs (Ativan and PO Risperdal at different times) since admission that have not been helpful. Unable to obtain further history from patient. Depression: Increased Anxiety, Increased Irritability, Difficulty Sleeping, Changes in Appetite, Significant Weight Loss Dementia: Memory Impairment, Poor Executive Functioning, Other (Pacing, exit- seeking) PFSH Patient Stated Medical History Dementia Yes Hx Incontinence Yes Hx Kidney Stones Yes Hx Renal Disease Yes Osteoarthritis Yes Other Musculoskeletal Yes: TMJ Depression Yes Surgical History: Family History: Unable to obtain from patient - Social History Smoking status: Never smoker Substance use type: does not use Current residence: [facility] Social history: Strengths: family support, placement Review of Systems ROS unobtainable: due to mental status - Integumentary/Breasts Integumentary: Absent: rash - Psychiatric Psychiatric: Present: abnormal sleep pattern, behavioral changes, difficulty concentrating, other (pacing, exit-seeking) Mental Status Exam Vitals: Last Vital Signs Temp 97.0 F 10/24/16 08:00 Pulse 69 10/24/16 08:00 Resp 20 10/24/16 08:00 BP 100/62 10/24/16 08:00 Pulse Ox 97 10/23/16 21:37 Height: 1.5 m Weight: 48 kg - Mental Status Exam Muscle Strength/Tone: Weak Dressing: Casual Grooming: Poor Attitude: Uncooperative Motor Activity: Pacing, Restless Eye Contact: Poor Volume: Soft Rhythm: Mumbled, Paucity of Language Orientation: Disoriented to time, Disoriented to place, Disoriented to situation Mood: Anxious Rate of Thoughts: Delayed Thought Organization: Disorganized, Confused Associations: Illogical Abstract Reasoning: Impaired, concrete Thought Content: Other (Poverty of thought) Perception/Psychotic: Other (Unclear, doesn't appear to be responding to internal stimuli) Language: Naming Impaired Fund of Knowledge: Poor fund of knowledge Memory: Poor-immediate, Poor-recent, Poor-remote Suicidal Ideation: None Homicidal Ideation: None (though some aggression towards NH staff) Insight: Impaired Judgement: Impaired Impulse Control: Poor - Laboratory Result Diagrams: 10/24/16 04:53 10/24/16 04:53 Laboratory Results - last 24 hr 10/24/16 10/24/16 10/24/16 04:53 04:53 04:53 WBC 9.1 RBC 4.10 Hgb 13.1 Hct 39.2 MCV 95.6 MCH 32.0 MCHC 33.4 RDW Std Deviation 41.4 Plt Count 308 MPV 9.1 L Immature Gran % (Auto) 0.2 Neut % (Auto) 53.1 Lymph % (Auto) 33.7 [place] % (Auto) 8.0 Eos % (Auto) 4.1 H Baso % (Auto) 0.9 Neut # 4.8 Lymph # 3.1 [place] # 0.7 Eos # 0.4 Baso # 0.1 Abs Immat Gran (auto) 0.02 Turbidity < 20.0 Sodium 143 Potassium 4.0 Chloride 106 Carbon Dioxide 29 Anion Gap 8 BUN 19.0 H Creatinine 0.7 GFR Calculation 86 BUN/Creatinine Ratio 27 H Glucose 89 Hemoglobin A1c 5.1 L Calculated Osmolality 276 Calcium 9.3 Total Bilirubin 0.60 Icterus Index < 2.0 AST 39 H ALT 57 H Alkaline Phosphatase 77 Total Protein 5.9 L Albumin 3.8 Globulin 2.1 L Albumin/Globulin Ratio 1.8 Prealbumin 12.3 L TSH 1.41 Specimen Hemolysis < 15.0 Assessment and Plan (1) Major neurocognitive disorder Problem details: with behavioral disturbance, due to frontotemporal brain disease Current visit: Yes Status: Chronic (2) Frontotemporal brain disease Current visit: Yes Status: Chronic (3) Chronic kidney disease Current visit: Yes Status: Acute (4) Elevated LFTs Current visit: Yes Status: Acute (5) Mixed hyperlipidemia Current visit: Yes Status: Acute Maintain safety/elopement precautions. Patient is high fall risk but also very restless, impulsive. Obtain further collateral history from family/staff. Review labs from admission. Discussed initial med changes with son/DPROSA ISELA Ruiz on 10/24 and agreed to the following: Start Exelon patch (4mg daily) with plan to decrease use of antipsychotics if possible. Decreased Paxil to 20mg PO daily on 10/24 as well. Monitor mood, behavior and response to treatment.
[2016-10-24] MEDS: MELATONIN 1 MG TABLET PO SCH (21:05)
[2016-10-24] MEDS: LORazepam 0.5 MG TABLET PO SCH (21:14)
--- NOTE | 2016-10-25 06:46 | Neuropsych Progress Note ---
Robert Subjective Date: 10/25/16 - Sujective/Severity of Illness Medications: Docusate Sodium (Colace) 100 mg PO BID PRN Lorazepam (Ativan Inj) 0.5 mg IM Q6H PRN PRN Reason: Extreme agitation Lorazepam (Ativan) 0.5 mg PO Q6H PRN PRN Reason: Extreme agitation Last Admin: 10/24/16 14:22 Dose: 0.5 mg Lorazepam (Ativan) 0.5 mg PO HS [facility] Last Admin: 10/24/16 21:14 Dose: 0.5 mg Melatonin (Melatonin) 3 mg PO HS [facility] Last Admin: 10/24/16 21:05 Dose: 3 mg Meloxicam (Mobic) 15 mg PO WB [facility] Last Admin: 10/24/16 12:21 Dose: 15 mg Mirtazapine (Remeron) 7.5 mg PO HS [facility] Last Admin: 10/24/16 21:05 Dose: 7.5 mg Olanzapine (Zyprexa) 5 mg PO DAILY [facility] Last Admin: 10/24/16 08:17 Dose: 5 mg Paroxetine HCl (Paxil) 40 mg PO DAILY [facility] Last Admin: 10/24/16 12:21 Dose: 40 mg Polyethylene Glycol (Miralax) 17 gm PO Q3D [facility] Last Admin: 10/23/16 22:59 Dose: Not Given Risperidone (Risperdal) 0.5 mg PO Q6H PRN PRN Reason: Agitation Last Admin: 10/24/16 12:24 Dose: 0.5 mg Tizanidine HCl (Zanaflex) 2 mg PO Q8H PRN PRN Reason: Muscle spasm Last Admin: 10/24/16 14:22 Dose: 2 mg Subjective: Pt. seen, chart reviewed. Case discussed w RN. 56 year old female here from ID in [place] secondary to increase in aggression and outbursts related to dementia. RN reports she continues to pace the halls, "doesn't stop for much." Poor appetite. Poor fluid intake. They have to push fluids. She will sometimes sit down on the floor. Exit seeking at times. She talks to herself while pacing, "I hate you." Her statements don't align with her actions. Sometimes runs into things. Dr. Rojo's notes indicate they agreed to Exelon patch and had agreed to decrease the Paxil but it appears this order did not go thru. Will carry on with that at this point. Start Time: 06:45 Stop Time: 07:00 Mental Status Exam Vitals: Last Vital Signs Temp 96.8 F 10/24/16 23:56 Pulse 94 10/24/16 23:56 Resp 18 10/24/16 23:56 BP 145/77 H 10/24/16 23:56 Pulse Ox 98 10/24/16 23:56 Height: 4 ft 11 in Weight: 48 kg - Mental Status Exam Muscle Strength/Tone: Weak Dressing: Casual Grooming: Poor Attitude: Uncooperative Motor Activity: Pacing, Restless Eye Contact: Poor Volume: Soft Rhythm: Mumbled, Paucity of Language Orientation: Disoriented to time, Disoriented to place, Disoriented to situation Mood: Anxious Rate of Thoughts: Delayed Thought Organization: Disorganized, Confused Associations: Illogical Abstract Reasoning: Impaired, concrete Thought Content: Other (Poverty of thought) Perception/Psychotic: Other (Unclear, doesn't appear to be responding to internal stimuli) Language: Naming Impaired Fund of Knowledge: Poor fund of knowledge Memory: Poor-immediate, Poor-recent, Poor-remote Suicidal Ideation: None Homicidal Ideation: None Insight: Impaired Judgement: Impaired Impulse Control: Poor - Laboratory Result Diagrams: 10/24/16 04:53 10/24/16 04:53 Laboratory Results - last 24 hr 10/24/16 10/24/16 04:53 04:53 Turbidity < 20.0 Hemoglobin A1c 5.1 L Icterus Index < 2.0 Prealbumin 12.3 L Specimen Hemolysis < 15.0 Assessment and Plan 10.25.16: Decrease Paxil to 20mg PO Daily. Next might consider Gabapentin to target restlessness.
[2016-10-25] MEDS ORDERED: PAROXETINE 20 MG TABLET PO SCH (09:00)
[2016-10-25] MEDS: OLANZapine 5 MG TABLET PO SCH (12:12)
[2016-10-25] MEDS: MELOXICAM 15 MG TABLET PO SCH (12:12)
[2016-10-25] MEDS: LORazepam 0.5 MG TABLET PO PRN (12:12)
[2016-10-25] MEDS: RisperiDONE 0.5 MG TABLET PO PRN (15:27)
--- NOTE | 2016-10-25 16:30 | Progress Note ---
<Cecile Grace - Last Filed: 10/25/16 16:27> Subjective: Tamra is rapidly pacing the [facility] with staff holding her hand. She has to be frequently diverted. She is uttering curse words under her breath. She walks up rapidly to me multiple times and seems to be fairly aggressive. She walked up at one point and said "I don't like you." and walked off. She attempts to grabs the hand of whoever walks close to her, whether it is staff or other patients. She did sleep for a limited time, but began pacing quickly after awakening. Not eating much per notes. Chart is reviewed for collateral information. Tamra would not stand still or slow down long enough for me to examine her. Objective Vital signs: Temp Pulse Resp BP Pulse Ox 96.8 F 94 18 145/77 H 98 10/24/16 23:56 10/24/16 23:56 10/24/16 23:56 10/24/16 23:56 10/24/16 23:56 Height: 1.5 m Weight: 48 kg Body Mass Index: 21.3 - Constitutional Present: no acute distress, thin, agitated. Absent: cooperative Comments: Uncooperative as detailed in HPI. - Routine HEENT Exam Eye: Present: EOMI Comments: Pupils are normal. She is wide eyed. Dentition is poor. Teeth are yellow. - Routine Respiratory Exam Absent: accessory muscle use, respiratory distress - Routine Back/Spine/Pelvis Exam Comments: Walks slightly forward bent. - Routine Skin Exam Present: dry, warm - Routine Neurological Exam Present: alert, abnormal gait, moving all extremities. Absent: oriented X3 - Routine Psychiatric Exam Present: agitated. Absent: normal affect, normal thought process, cooperative, good insight, good judgment Results - Labs CBC & Chem 7: 10/24/16 04:53 10/24/16 04:53 Assessment and Plan (1) Dementia with behavioral problem Current visit: Yes Status: Acute (2) Mixed hyperlipidemia Current visit: Yes Status: Acute (3) Chronic kidney disease Current visit: Yes Status: Acute (4) Elevated LFTs Current visit: Yes Status: Acute (5) Frontotemporal brain disease Current visit: Yes Status: Chronic (6) Major neurocognitive disorder Problem details: with behavioral disturbance, due to frontotemporal brain disease Current visit: Yes Status: Chronic (7) Weight loss, non-intentional Current visit: Yes Status: Acute Assessment and Plan: 10/25/16- Medical team Tamra is rapidly pacing the halls. This is documented to have been ongoing for some time- Suspect this is the main cause of her significant weight loss. She is also not eating. Add PO supplements 4x/day. She will need to have excess calories to offset the excessive exercise. Attending adjusting meds. Remeron is noted- hope this will help appetite. Mild elevated LFTs- recheck labs in AM. Assess CPK as well due to exercise amounts. Chart reviewed for collateral information. Sepsis Assessment - Evaluation Sepsis screening result: No Definite Risk - Focused Exam Capillary refill: < 2-3 Seconds Hospital Course Summary Disclaimer: The visit summary below is not to be considered part of the above Progress Note. Hospital Course: 10/24/16 08:47 Agree with admission 1. Chart reviewed in detail -labs from Sep, 2016 (CBC, CMP, and lipid panel) were fairly unremarkable -Pt was unable to provide any personal history 2. Mild elevations in LFTs -new compared to labs from September -?med related 3. CKD -noted in chart -renal function is stable with creatinine of 0.7 and GFR of 86 4. Psych -unable to examine, doubt we would be able to successfully obtain any imaging or labs -eval pending 10/25/16 16:40 10/25/16- Medical team Tamra is rapidly pacing the halls. This is documented to have been ongoing for some time- Suspect this is the main cause of her significant weight loss. She is also not eating. Add PO supplements 4x/day. She will need to have excess calories to offset the excessive exercise. Attending adjusting meds. Remeron is noted- hope this will help appetite. Mild elevated LFTs- recheck labs in AM. Assess CPK as well due to exercise amounts. Chart reviewed for collateral information. <Tiera Stiles - Last Filed: 10/25/16 20:51> Objective Vital signs: Temp Pulse Resp BP Pulse Ox 97.2 F 109 H 16 120/66 95 10/25/16 16:00 10/25/16 16:00 10/25/16 16:00 10/25/16 16:00 10/25/16 16:00 Results - Labs CBC & Chem 7: 10/24/16 04:53 10/24/16 04:53 Assessment and Plan (1) Dementia with behavioral problem Current visit: Yes Status: Acute (2) Mixed hyperlipidemia Current visit: Yes Status: Acute (3) Chronic kidney disease Current visit: Yes Status: Acute (4) Elevated LFTs Current visit: Yes Status: Acute (5) Major neurocognitive disorder Problem details: with behavioral disturbance, due to frontotemporal brain disease Current visit: Yes Status: Chronic (6) Frontotemporal brain disease Current visit: Yes Status: Chronic (7) Weight loss, non-intentional Current visit: Yes Status: Acute Assessment and Plan: 10/25/2016-I reviewed this chart, the patient history, and the SALES OPERATIONS ANALYST's/PA's documented findings as above. We discussed and formulated the assessment and plan as above with the additions below.-Dr. Stiles Patient is lying in bed and the nurse is stroking her back which is helping with the patient's anxiety. She is more calm than I have seen her in the past 2 days. She does allow me to listen to her lungs which are clear and heart which reveals a regular rate and rhythm without murmur. Abdomen is soft with positive bowel sounds. Extremities are free of edema. He is not able to answer any of my questions. She has not been eating or drinking well this evening and I did ask the nurse to encourage oral fluids and supplements. Sepsis Assessment - Focused Exam Vital Signs Temp Pulse Resp BP Pulse Ox 10/25/16 16:00 97.2 F 109 H 16 120/66 95 Hospital Course Summary Disclaimer: The visit summary below is not to be considered part of the above Progress Note.
[2016-10-25] MEDS: MIRTAZAPINE 15 MG TABLET PO SCH (21:08)
[2016-10-25] MEDS: MELATONIN 1 MG TABLET PO SCH (21:08)
[2016-10-25] MEDS: LORazepam 0.5 MG TABLET PO SCH (21:09)
--- NOTE | 2016-10-26 08:14 | Neuropsych Progress Note ---
[facility] Subjective Date: 10/26/16 - Sujective/Severity of Illness Medications: Docusate Sodium (Colace) 100 mg PO BID PRN Lorazepam (Ativan Inj) 0.5 mg IM Q6H PRN PRN Reason: Extreme agitation Lorazepam (Ativan) 0.5 mg PO Q6H PRN PRN Reason: Extreme agitation Last Admin: 10/25/16 12:12 Dose: 0.5 mg Lorazepam (Ativan) 0.5 mg PO HS [facility] Last Admin: 10/25/16 21:09 Dose: 0.5 mg Melatonin (Melatonin) 3 mg PO HS [facility] Last Admin: 10/25/16 21:08 Dose: 3 mg Meloxicam (Mobic) 15 mg PO WB [facility] Last Admin: 10/25/16 12:12 Dose: 15 mg Mirtazapine (Remeron) 7.5 mg PO HS [facility] Last Admin: 10/25/16 21:08 Dose: 7.5 mg Olanzapine (Zyprexa) 5 mg PO DAILY [facility] Last Admin: 10/25/16 12:12 Dose: 5 mg Paroxetine HCl (Paxil) 20 mg PO DAILY [facility] Last Admin: 10/25/16 12:13 Dose: 20 mg Polyethylene Glycol (Miralax) 17 gm PO Q3D [facility] Last Admin: 10/23/16 22:59 Dose: Not Given Risperidone (Risperdal) 0.5 mg PO Q6H PRN PRN Reason: Agitation Last Admin: 10/25/16 15:27 Dose: 0.5 mg Tizanidine HCl (Zanaflex) 2 mg PO Q8H PRN PRN Reason: Muscle spasm Last Admin: 10/25/16 14:48 Dose: 2 mg Subjective: Pt. seen, chart reviewed. Case discussed w RN. RN reports she remains very on the go and restless whenever she is awake. She is repetitive in her speech they report. She has gotten some PRNs of Lorazepam and Risperidone with limited benefit. RN reports they haven't seen evidence of hallucinations, nor paranoia per se. She communicates poorly. Calling staff names and cursing at times. Start Time: 08:00 Stop Time: 08:15 Mental Status Exam Vitals: Last Vital Signs Temp 97.2 F 10/25/16 23:35 Pulse 68 10/25/16 23:35 Resp 15 10/25/16 23:35 BP 126/66 10/25/16 23:35 Pulse Ox 97 10/25/16 23:35 Height: 4 ft 11 in Weight: 48 kg - Mental Status Exam Muscle Strength/Tone: Weak Dressing: Casual Grooming: Poor Attitude: Uncooperative Motor Activity: Pacing, Restless Eye Contact: Poor Volume: Soft Rhythm: Mumbled, Paucity of Language Orientation: Disoriented to time, Disoriented to place, Disoriented to situation Mood: Anxious Rate of Thoughts: Delayed Thought Organization: Disorganized, Confused Associations: Illogical Abstract Reasoning: Impaired, concrete Thought Content: Other (Poverty of thought) Perception/Psychotic: Perception Normal, Other Language: Naming Impaired Fund of Knowledge: Poor fund of knowledge Memory: Poor-immediate, Poor-recent, Poor-remote Suicidal Ideation: None Homicidal Ideation: None Insight: Impaired Judgement: Impaired Impulse Control: Poor - Laboratory Result Diagrams: 10/24/16 04:53 10/26/16 05:09 Laboratory Results - last 24 hr 10/24/16 10/25/16 10/26/16 04:53 15:54 05:09 Turbidity < 20.0 Sodium 144 Potassium 3.8 Chloride 104 Carbon Dioxide 27 Anion Gap 13 BUN 19.0 H Creatinine 0.7 GFR Calculation 86 BUN/Creatinine Ratio 27 H Glucose 72 Calculated Osmolality 278 Calcium 9.3 Total Bilirubin 0.70 Icterus Index < 2.0 AST 37 H ALT 51 Alkaline Phosphatase 74 Creatine Kinase 277 H Total Protein 6.2 L Albumin 4.1 Globulin 2.1 L Albumin/Globulin Ratio 2.0 Specimen Hemolysis 23 Ur Collection Type Not provided Urine Color Yellow Urine Clarity Clear Urine pH 5.5 Ur Specific [place] 1.025 Urine Protein Negative Urine Glucose (UA) Negative Urine Ketones Trace A Urine Occult Blood Negative Urine Nitrate Negative Urine Bilirubin 1+ A Urine Urobilinogen 0.2 Ur Leukocyte Esterase Negative Urinalysis Comment Microscopic not ind. RPR Non-reactive Assessment and Plan (1) Major neurocognitive disorder Problem details: with behavioral disturbance, due to frontotemporal brain disease Current visit: Yes Status: Chronic Increase Remeron to 15mg PO q HS. Move Zyprexa to HS dosing. Stop Paxil. RN to give test dose of Gabapentin later today when restless.
[2016-10-26] MEDS ORDERED: GABAPENTIN 300 MG CAPSULE PO SCH (08:58)
[2016-10-26] MEDS: MELOXICAM 15 MG TABLET PO SCH (09:00)
--- NOTE | 2016-10-26 10:27 | Progress Note ---
Subjective: Tamra was sleeping soundly. Her head was placed on a pillow at the opposite end of the bed, where once feet would typically be. She did not easily, nor did I attempt to wake her up. Previously, I had not been able to listen to her breath sounds or heart tones because of her high activity level. Per nursing staff, she had fairly good night, sleeping through the shift commander, and was cooperative with lab draw this morning. Objective Vital signs: Temp Pulse Resp BP Pulse Ox 97.2 F 68 15 126/66 97 10/25/16 23:35 10/25/16 23:35 10/25/16 23:35 10/25/16 23:35 10/25/16 23:35 Height: 1.5 m Weight: 48 kg Body Mass Index: 21.3 - Constitutional Present: no acute distress, thin - Routine HEENT Exam Head: Present: normocephalic - Routine Respiratory Exam Present: CTA bilaterally - Routine Cardiovascular Exam Present: RRR, S1, S2 - Routine Abdominal Exam Present: normoactive bowel sounds - Routine Extremities Exam Present: no edema, pulses intact, normal capillary refill - Routine Musculoskeletal Exam Musculoskeletal: no joint swelling - Routine Skin Exam Present: intact, dry - Routine Neurological Exam Absent: alert (sleeping) - Routine Psychiatric Exam Present: agitated (when awake) Results - Labs CBC & Chem 7: 10/24/16 04:53 10/26/16 05:09 Assessment and Plan (1) Dementia with behavioral problem Current visit: Yes Status: Acute (2) Mixed hyperlipidemia Current visit: Yes Status: Acute (3) Chronic kidney disease Current visit: Yes Status: Acute (4) Elevated LFTs Current visit: Yes Status: Acute (5) Major neurocognitive disorder Problem details: with behavioral disturbance, due to frontotemporal brain disease Current visit: Yes Status: Chronic (6) Frontotemporal brain disease Current visit: Yes Status: Chronic (7) Weight loss, non-intentional Current visit: Yes Status: Acute (8) Protein-calorie malnutrition, mild Current visit: Yes Status: Acute Assessment and Plan: Elevated LFTs -AST decreased slightly to 37, and ALT is now in normal range at 51 -CK is elevated at 277 (range is 30-135) -Lipid panel is pending, but in September 2016, Trigs 74, HDL 46, LDL (142H), VLDL 15 , Cardiac risk 4.4, nonHDL 157 Mild protein calorie malnutrition -Encourage oral intake -Dietitian has been consulted Labs reviewed -TSH is normal at 1.41 -Vitamin B12 and folate are pending -RPR: Nonreactive -Urinalysis is negative for UTI Psychiatry notes reviewed -Discontinue Paxil -Increase Remeron dose -Negative timing of Zyprexa to HS -Trial of gabapentin later today Sepsis Assessment - Evaluation Sepsis screening result: No Definite Risk - Focused Exam Vital Signs Temp Pulse Resp BP Pulse Ox 10/25/16 23:35 97.2 F 68 15 126/66 97 Respiratory exam: Absent: accessory muscle use, respiratory distress Capillary refill: < 2-3 Seconds Hospital Course Summary Disclaimer: The visit summary below is not to be considered part of the above Progress Note. Hospital Course: 10/24/16 08:47 Agree with admission 1. Chart reviewed in detail -labs from Sep, 2016 (CBC, CMP, and lipid panel) were fairly unremarkable -Pt was unable to provide any personal history 2. Mild elevations in LFTs -new compared to labs from September -?med related 3. CKD -noted in chart -renal function is stable with creatinine of 0.7 and GFR of 86 4. Psych -unable to examine, doubt we would be able to successfully obtain any imaging or labs -eval pending 10/25/16 16:40 10/25/16- Medical team Tamra is rapidly pacing the halls. This is documented to have been ongoing for some time- Suspect this is the main cause of her significant weight loss. She is also not eating. Add PO supplements 4x/day. She will need to have excess calories to offset the excessive exercise. Attending adjusting meds. Remeron is noted- hope this will help appetite. Mild elevated LFTs- recheck labs in AM. Assess CPK as well due to exercise amounts. Chart reviewed for collateral information. 10/26/16 10:29 Elevated LFTs -AST decreased slightly to 37, and ALT is now in normal range at 51 -CK is elevated at 277 (range is 30-135) -Lipid panel is pending, but in September 2016, Trigs 74, HDL 46, LDL (142H), VLDL 15 , Cardiac risk 4.4, nonHDL 157 Mild protein calorie malnutrition -Encourage oral intake -Dietitian has been consulted Labs reviewed -TSH is normal at 1.41 -Vitamin B12 and folate are pending -RPR: Nonreactive -Urinalysis is negative for UTI Psychiatry notes reviewed -Discontinue Paxil -Increase Remeron dose -Negative timing of Zyprexa to HS -Trial of gabapentin later today
[2016-10-26] MEDS: LORazepam 0.5 MG TABLET PO PRN ×2 (12:05→18:24)
[2016-10-26] MEDS: RisperiDONE 0.5 MG TABLET PO PRN (12:06)
[2016-10-26] MEDS: MELATONIN 1 MG TABLET PO SCH (22:17)
[2016-10-26] MEDS: OLANZapine 5 MG TABLET PO SCH (22:17)
[2016-10-26] MEDS: MIRTAZAPINE 15 MG TABLET PO SCH (22:18)
[2016-10-26] MEDS: LORazepam 0.5 MG TABLET PO SCH (22:18)
[2016-10-26] MEDS: POLYETHYL GLYCOL 3350 17gm PACKET PO SCH (22:19)
[2016-10-26] MEDS: GABAPENTIN 300 MG CAPSULE PO SCH (22:19)
[2016-10-27] MEDS: GABAPENTIN 300 MG CAPSULE PO SCH (09:21)
[2016-10-27] MEDS: MELOXICAM 15 MG TABLET PO SCH (09:21)
[2016-10-27] MEDS: OLANZapine 5 MG TABLET PO SCH (20:00)
[2016-10-27] MEDS: MIRTAZAPINE 15 MG TABLET PO SCH (20:00)
[2016-10-27] MEDS: LORazepam 0.5 MG TABLET PO SCH (20:00)
[2016-10-27] MEDS: MELATONIN 1 MG TABLET PO SCH (20:00)
--- NOTE | 2016-10-27 22:10 | Neuropsych Progress Note ---
[facility] Subjective Date: 10/27/16 - Sujective/Severity of Illness Medications: Docusate Sodium (Colace) 100 mg PO BID PRN Gabapentin (Neurontin) 300 mg PO TID [facility] Lorazepam (Ativan Inj) 0.5 mg IM Q6H PRN PRN Reason: Extreme agitation Lorazepam (Ativan) 0.5 mg PO Q6H PRN PRN Reason: Extreme agitation Last Admin: 10/26/16 18:24 Dose: 0.5 mg Lorazepam (Ativan) 0.5 mg PO HS [facility] Last Admin: 10/26/16 22:18 Dose: 0.5 mg Melatonin (Melatonin) 3 mg PO HS [facility] Last Admin: 10/26/16 22:17 Dose: 3 mg Meloxicam (Mobic) 15 mg PO WB [facility] Last Admin: 10/27/16 09:21 Dose: 15 mg Mirtazapine (Remeron) 15 mg PO HS [facility] Last Admin: 10/26/16 22:18 Dose: 15 mg Olanzapine (Zyprexa) 5 mg PO HS [facility] Last Admin: 10/26/16 22:17 Dose: 5 mg Polyethylene Glycol (Miralax) 17 gm PO Q3D [facility] Last Admin: 10/26/16 22:19 Dose: Not Given Risperidone (Risperdal) 0.5 mg PO Q6H PRN PRN Reason: Agitation Last Admin: 10/26/16 12:06 Dose: 0.5 mg Tizanidine HCl (Zanaflex) 2 mg PO Q8H PRN PRN Reason: Muscle spasm Last Admin: 10/26/16 18:24 Dose: 2 mg Subjective: Pt. seen, chart reviewed. case discussed w RN and multidis team. I had them trial some gabapentin yesterday which they reported had some positive effect. Thus I scheduled it to 300mg PO BID. She's had just a few doses now. She remains severely restless and paces constantly but they report some improvement. She was actually able to sit down and eat. They also report her mood has been moderately better, no physical aggression today. Slept 10 hours. Still cursing some and on the go. Perhaps some progress today. Start Time: 17:45 Stop Time: 18:00 Mental Status Exam Vitals: Last Vital Signs Temp 96.9 F 10/27/16 16:00 Pulse 90 10/27/16 16:00 Resp 24 10/27/16 16:00 BP 110/64 10/27/16 16:00 Pulse Ox 97 10/27/16 16:00 Height: 4 ft 11 in Weight: 48 kg - Mental Status Exam Muscle Strength/Tone: Weak Dressing: Casual Grooming: Poor Attitude: Uncooperative Motor Activity: Pacing, Restless Eye Contact: Poor Volume: Soft Rhythm: Mumbled, Paucity of Language Orientation: Disoriented to time, Disoriented to place, Disoriented to situation Mood: Anxious Rate of Thoughts: Delayed Thought Organization: Disorganized, Confused Associations: Illogical Abstract Reasoning: Impaired, concrete Thought Content: Other (Poverty of thought) Perception/Psychotic: Perception Normal, Other Language: Naming Impaired Fund of Knowledge: Poor fund of knowledge Memory: Poor-immediate, Poor-recent, Poor-remote Suicidal Ideation: None Homicidal Ideation: None Insight: Impaired Judgement: Impaired Impulse Control: Poor - Laboratory Result Diagrams: 10/24/16 04:53 10/26/16 05:09 Laboratory Results - last 24 hr 10/24/16 10/24/16 04:53 04:53 Triglycerides 86 Cholesterol 226 H LDL Cholesterol, Calc 148.8 VLDL Cholesterol 17.2 HDL Cholesterol 60 Cholesterol/HDL Ratio 3.8 Vitamin B12 440 Folate 8.8 Assessment and Plan (1) Major neurocognitive disorder Problem details: with behavioral disturbance, due to frontotemporal brain disease Current visit: Yes Status: Chronic Increase Gabapentin to 300mg PO TID. Might consider Guanfacine trial as well and perhaps reduction of Zyprexa (possible akathisia and sometimes exacerbates FTD)
[2016-10-28] MEDS ORDERED: GUANFACINE 1 MG TABLET PO STA (08:35)
[2016-10-28] MEDS ORDERED: GABAPENTIN 300 MG CAPSULE PO SCH (09:00)
[2016-10-28] MEDS: MELOXICAM 15 MG TABLET PO SCH (09:29)
[2016-10-28] MEDS: GABAPENTIN 400 MG CAPSULE PO SCH ×3 (09:44→21:20)
[2016-10-28] MEDS: OLANZapine 2.5 MG TABLET PO SCH (09:45)
[2016-10-28] MEDS: RisperiDONE 0.5 MG TABLET PO PRN (18:13)
--- NOTE | 2016-10-28 20:12 | Neuropsych Progress Note ---
[facility] Subjective Date: 10/28/16 - Sujective/Severity of Illness Medications: Docusate Sodium (Colace) 100 mg PO BID PRN Gabapentin (Neurontin) 400 mg PO TID [facility] Last Admin: 10/28/16 16:11 Dose: 400 mg Lorazepam (Ativan Inj) 0.5 mg IM Q6H PRN PRN Reason: Extreme agitation Lorazepam (Ativan) 0.5 mg PO Q6H PRN PRN Reason: Extreme agitation Last Admin: 10/26/16 18:24 Dose: 0.5 mg Lorazepam (Ativan) 0.5 mg PO HS [facility] Last Admin: 10/27/16 20:00 Dose: 0.5 mg Melatonin (Melatonin) 3 mg PO HS [facility] Last Admin: 10/27/16 20:00 Dose: 3 mg Meloxicam (Mobic) 15 mg PO WB [facility] Last Admin: 10/28/16 09:29 Dose: 15 mg Mirtazapine (Remeron) 15 mg PO HS [facility] Last Admin: 10/27/16 20:00 Dose: 15 mg Olanzapine (Zyprexa) 2.5 mg PO DAILY [facility] Last Admin: 10/28/16 09:45 Dose: 2.5 mg Polyethylene Glycol (Miralax) 17 gm PO Q3D [facility] Last Admin: 10/26/16 22:19 Dose: Not Given Risperidone (Risperdal) 0.5 mg PO Q6H PRN PRN Reason: Agitation Last Admin: 10/28/16 18:13 Dose: 0.5 mg Tizanidine HCl (Zanaflex) 2 mg PO Q8H PRN PRN Reason: Muscle spasm Last Admin: 10/26/16 18:24 Dose: 2 mg Subjective: pt seen, chart reviewed. case discussed w rn and community development director. she continues to have severe psychomotor agitation and is pacing non stop. they report she's more pleasant, cooperative, and in better spirits but has not slowed that much. she sleeps well, 11 hours. sitting down to eat better. so far no evidence of falls or unsteadiness, or excess sedation. Start Time: 09:00 Stop Time: 09:15 Mental Status Exam Vitals: Last Vital Signs Temp 97.8 F 10/28/16 16:00 Pulse 70 10/28/16 16:00 Resp 20 10/28/16 16:00 BP 114/66 10/28/16 16:00 Pulse Ox 97 10/28/16 16:00 Height: 4 ft 11 in Weight: 48 kg - Mental Status Exam Muscle Strength/Tone: Weak Dressing: Casual Grooming: Poor Attitude: Vigilant, Tense Motor Activity: Pacing, Restless Eye Contact: Poor Volume: Soft Rhythm: Mumbled, Paucity of Language Orientation: Disoriented to time, Disoriented to place, Disoriented to situation Mood: Anxious Rate of Thoughts: Delayed Thought Organization: Disorganized, Confused Associations: Illogical Abstract Reasoning: Impaired, concrete Thought Content: Other (Poverty of thought) Perception/Psychotic: Perception Normal, Other Language: Naming Impaired Fund of Knowledge: Poor fund of knowledge Memory: Poor-immediate, Poor-recent, Poor-remote Suicidal Ideation: None Homicidal Ideation: None Insight: Impaired Judgement: Impaired Impulse Control: Poor - Laboratory Result Diagrams: 10/24/16 04:53 10/26/16 05:09 Assessment and Plan (1) Major neurocognitive disorder Problem details: with behavioral disturbance, due to frontotemporal brain disease Current visit: Yes Status: Chronic increase gabapentin to 400mg po tid to target restlessness, and mood and hopefully allow us to reduce zyprexa which could exacerbate restlessness. test dose of guanfacine today. if this helps with restlessness then may consider scheduling it a couple times per day. if that is the case then i would probably plan to taper off mirtazapine due to pharmacologic antagonism towards one another. -depakote may be another consideration.
[2016-10-28] MEDS: MELATONIN 1 MG TABLET PO SCH (21:21)
[2016-10-28] MEDS: LORazepam 0.5 MG TABLET PO SCH (21:21)
[2016-10-28] MEDS: MIRTAZAPINE 15 MG TABLET PO SCH (21:21)
[2016-10-29] MEDS: GABAPENTIN 400 MG CAPSULE PO SCH ×3 (09:05→21:41)
[2016-10-29] MEDS: MELOXICAM 15 MG TABLET PO SCH (09:05)
[2016-10-29] MEDS: OLANZapine 2.5 MG TABLET PO SCH (09:05)
--- NOTE | 2016-10-29 13:31 | Progress Note ---
Subjective: Tamra was still very active pacing the halls, turning very quickly; for a moment she reclined sideways in one of the recliners in the dayroom. She was much happier than the last time I saw her and initiated conversation by asking questions (but didn't wait for my response). She told me "I like you" and then started walking away mentioning something about her sister. Staff report that she slept better last night. Objective Vital signs: Temp Pulse Resp BP Pulse Ox 98.2 F 88 20 132/71 99 10/29/16 08:00 10/29/16 08:00 10/29/16 08:00 10/29/16 08:00 10/29/16 08:00 Height: 1.5 m Weight: 48 kg Body Mass Index: 21.3 - Constitutional Present: no acute distress, thin - Routine HEENT Exam ENT: Present: mucous membranes moist - Routine Respiratory Exam Absent: respiratory distress Comments: talked and paced quickly without any visible dyspnea - Routine Abdominal Exam Present: non distended - Routine Extremities Exam Present: no edema - Routine Musculoskeletal Exam Musculoskeletal: other (walked quickly with a steady gait) - Routine Skin Exam Present: intact, dry, warm - Routine Neurological Exam Present: alert - Routine Psychiatric Exam Absent: normal affect, normal thought process Results - Labs CBC & Chem 7: 10/24/16 04:53 10/26/16 05:09 Assessment and Plan (1) Dementia with behavioral problem Current visit: Yes Status: Acute (2) Mixed hyperlipidemia Current visit: Yes Status: Acute (3) Chronic kidney disease Current visit: Yes Status: Acute (4) Elevated LFTs Current visit: Yes Status: Acute (5) Major neurocognitive disorder Problem details: with behavioral disturbance, due to frontotemporal brain disease Current visit: Yes Status: Chronic (6) Frontotemporal brain disease Current visit: Yes Status: Chronic (7) Weight loss, non-intentional Current visit: Yes Status: Acute (8) Protein-calorie malnutrition, mild Current visit: Yes Status: Acute Assessment and Plan: Labs reviewed -Cholesterol level elevated -Vitamin B12 is low range of normal; folate was normal -recheck LFTs, CPK to ensure they are trending down on 10/31/16 Vital signs overall remain stable. Mild PCM -Woodworking Bench Carpenter recommended Boost Breeze with every meal. Psychiatry notes reviewed -increase gabapentin to 400mg po tid -goal is to reduce zyprexa which could exacerbate restlessness. -test dose of guanfacine -considering depakote Sepsis Assessment - Evaluation Sepsis screening result: No Definite Risk - Focused Exam Vital Signs Temp Pulse Resp BP Pulse Ox 10/29/16 08:00 98.2 F 88 20 132/71 99 Respiratory exam: Absent: accessory muscle use, respiratory distress Cardiovascular exam: Present: RRR, S1, S2 Capillary refill: < 2-3 Seconds Hospital Course Summary Disclaimer: The visit summary below is not to be considered part of the above Progress Note. Hospital Course: 10/24/16 08:47 Agree with admission 1. Chart reviewed in detail -labs from Sep, 2016 (CBC, CMP, and lipid panel) were fairly unremarkable -Pt was unable to provide any personal history 2. Mild elevations in LFTs -new compared to labs from September -?med related 3. CKD -noted in chart -renal function is stable with creatinine of 0.7 and GFR of 86 4. Psych -unable to examine, doubt we would be able to successfully obtain any imaging or labs -eval pending 10/25/16 16:40 10/25/16- Medical team Tamra is rapidly pacing the halls. This is documented to have been ongoing for some time- Suspect this is the main cause of her significant weight loss. She is also not eating. Add PO supplements 4x/day. She will need to have excess calories to offset the excessive exercise. Attending adjusting meds. Remeron is noted- hope this will help appetite. Mild elevated LFTs- recheck labs in AM. Assess CPK as well due to exercise amounts. Chart reviewed for collateral information. 10/26/16 10:29 Elevated LFTs -AST decreased slightly to 37, and ALT is now in normal range at 51 -CK is elevated at 277 (range is 30-135) -Lipid panel is pending, but in September 2016, Trigs 74, HDL 46, LDL (142H), VLDL 15 , Cardiac risk 4.4, nonHDL 157 Mild protein calorie malnutrition -Encourage oral intake -Dietitian has been consulted Labs reviewed -TSH is normal at 1.41 -Vitamin B12 and folate are pending -RPR: Nonreactive -Urinalysis is negative for UTI Psychiatry notes reviewed -Discontinue Paxil -Increase Remeron dose -Negative timing of Zyprexa to HS -Trial of gabapentin later today 10/29/16 13:39 Labs reviewed -Cholesterol level elevated -Vitamin B12 is low range of normal; folate was normal -recheck LFTs, CPK to ensure they are trending down on 10/31/16 Vital signs overall remain stable. Mild PCM -Woodworking Bench Carpenter recommended Boost Breeze with every meal. Psychiatry notes reviewed -increase gabapentin to 400mg po tid -goal is to reduce zyprexa which could exacerbate restlessness. -test dose of guanfacine -considering depakote
[2016-10-29] MEDS: POLYETHYL GLYCOL 3350 17gm PACKET PO SCH (21:40)
[2016-10-29] MEDS: LORazepam 0.5 MG TABLET PO SCH (21:41)
[2016-10-29] MEDS: MIRTAZAPINE 15 MG TABLET PO SCH (21:42)
[2016-10-29] MEDS: MELATONIN 1 MG TABLET PO SCH (21:42)
--- NOTE | 2016-10-29 22:13 | Neuropsych Progress Note ---
[facility] Subjective Date: 10/30/16 - Sujective/Severity of Illness Medications: Docusate Sodium (Colace) 100 mg PO BID PRN Gabapentin (Neurontin) 400 mg PO TID [facility] Last Admin: 10/29/16 21:41 Dose: 400 mg Lorazepam (Ativan Inj) 0.5 mg IM Q6H PRN PRN Reason: Extreme agitation Lorazepam (Ativan) 0.5 mg PO Q6H PRN PRN Reason: Extreme agitation Last Admin: 10/26/16 18:24 Dose: 0.5 mg Lorazepam (Ativan) 0.5 mg PO HS [facility] Last Admin: 10/29/16 21:41 Dose: 0.5 mg Melatonin (Melatonin) 3 mg PO HS [facility] Last Admin: 10/29/16 21:42 Dose: 3 mg Meloxicam (Mobic) 15 mg PO WB [facility] Last Admin: 10/29/16 09:05 Dose: 15 mg Mirtazapine (Remeron) 15 mg PO [facility] Last Admin: 10/29/16 21:42 Dose: 15 mg Olanzapine (Zyprexa) 2.5 mg PO DAILY [facility] Last Admin: 10/29/16 09:05 Dose: 2.5 mg Polyethylene Glycol (Miralax) 17 gm PO Q3D [facility] Last Admin: 10/29/16 21:40 Dose: 17 gm Risperidone (Risperdal) 0.5 mg PO Q6H PRN PRN Reason: Agitation Last Admin: 10/28/16 18:13 Dose: 0.5 mg Tizanidine HCl (Zanaflex) 2 mg PO Q8H PRN PRN Reason: Muscle spasm Last Admin: 10/26/16 18:24 Dose: 2 mg Subjective: Patient seen and chart reviewed. Case discussed with treatment team. On interview, patient is pacing in the hallway and essentially ignores me, though she later walks by me, shakes my hands and smiles. She then tells me her mood is good. Nursing staff report patient's mood seems to be improved and she is laughing/ joking at times. There is some continued mood lability. She does continue pacing but can be regulated more with assistance of nursing staff. She takes meds with redirection. Patient slept well overnight. VSS. Patient is eating well. Psychotropic PRNs required in the past 24 hours: Ativan PO given at 2141 on 10/29. Start Time: 18:20 Stop Time: 18:40 Mental Status Exam Vitals: Last Vital Signs Temp 97.6 F 10/29/16 20:49 Pulse 91 10/29/16 20:49 Resp 20 10/29/16 16:00 BP 114/91 H 10/29/16 20:49 Pulse Ox 92 10/29/16 16:00 Height: 1.5 m Weight: 48 kg - Mental Status Exam Muscle Strength/Tone: Weak Dressing: Casual Grooming: Poor Attitude: Vigilant, Other (cooperation varies) Motor Activity: Pacing, Restless Eye Contact: Poor Volume: Soft Rhythm: Mumbled, Paucity of Language Orientation: Disoriented to time, Disoriented to place, Disoriented to situation Mood: Anxious, Other (some mood lability but seems to be improving overall) Rate of Thoughts: Delayed Thought Organization: Disorganized, Confused Associations: Illogical Abstract Reasoning: Impaired, concrete Thought Content: Other (Poverty of thought) Perception/Psychotic: Perception Normal, Other Language: Naming Impaired Fund of Knowledge: Poor fund of knowledge Memory: Poor-immediate, Poor-recent, Poor-remote Suicidal Ideation: None Homicidal Ideation: None Insight: Impaired Judgement: Impaired Impulse Control: Poor - Laboratory Result Diagrams: 10/24/16 04:53 10/26/16 05:09 Assessment and Plan (1) Major neurocognitive disorder Problem details: with behavioral disturbance, due to frontotemporal brain disease Current visit: Yes Status: Chronic (2) Frontotemporal brain disease Current visit: Yes Status: Chronic (3) Chronic kidney disease Current visit: Yes Status: Acute (4) Elevated LFTs Current visit: Yes Status: Acute (5) Mixed hyperlipidemia Current visit: Yes Status: Acute Patient seems to be improving overall - continue current care and monitor mood, behavior and response. Consider further decrease of antipsychotic.
[2016-10-30] MEDS: MELOXICAM 15 MG TABLET PO SCH (10:23)
[2016-10-30] MEDS: GABAPENTIN 400 MG CAPSULE PO SCH ×3 (10:23→20:07)
[2016-10-30] MEDS: OLANZapine 2.5 MG TABLET PO SCH (10:23)
[2016-10-30] MEDS: MELATONIN 1 MG TABLET PO SCH (21:30)
[2016-10-30] MEDS: MIRTAZAPINE 15 MG TABLET PO SCH (21:30)
[2016-10-30] MEDS: LORazepam 0.5 MG TABLET PO SCH (21:30)
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
[2016-10-31] MEDS: OLANZapine 2.5 MG TABLET PO SCH (09:07)
[2016-10-31] MEDS: GABAPENTIN 400 MG CAPSULE PO SCH ×3 (09:07→21:00)
[2016-10-31] MEDS: MELOXICAM 15 MG TABLET PO SCH (09:07)
[2016-10-31] MEDS: LORazepam 0.5 MG TABLET PO PRN (10:06)
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
[2016-10-31] MEDS: RisperiDONE 0.5 MG TABLET PO PRN (15:37)
[2016-10-31] MEDS: MELATONIN 1 MG TABLET PO SCH (20:59)
[2016-10-31] MEDS ORDERED: OLANZapine 2.5 MG TABLET PO SCH (21:00)
[2016-10-31] MEDS: LORazepam 0.5 MG TABLET PO SCH (21:00)
[2016-10-31] MEDS: MIRTAZAPINE 15 MG TABLET PO SCH (21:02)
--- NOTE | 2016-10-31 21:37 | Neuropsych Progress Note ---
Generations Subjective Date: 11/01/16 - Sujective/Severity of Illness Medications: Docusate Sodium (Colace) 100 mg PO BID PRN Gabapentin (Neurontin) 400 mg PO TID [facility] Last Admin: 10/31/16 21:00 Dose: 400 mg Lorazepam (Ativan Inj) 0.5 mg IM Q6H PRN PRN Reason: Extreme agitation Lorazepam (Ativan) 0.5 mg PO Q6H PRN PRN Reason: Extreme agitation Last Admin: 10/31/16 10:06 Dose: 0.5 mg Lorazepam (Ativan) 0.5 mg PO HS [facility] Last Admin: 10/31/16 21:00 Dose: 0.5 mg Melatonin (Melatonin) 3 mg PO HS [facility] Last Admin: 10/31/16 20:59 Dose: 3 mg Meloxicam (Mobic) 15 mg PO WB [facility] Last Admin: 10/31/16 09:07 Dose: 15 mg Mirtazapine (Remeron) 15 mg PO HS [facility] Last Admin: 10/31/16 21:02 Dose: 15 mg Olanzapine (Zyprexa) 1.25 mg PO 21 [place] Polyethylene Glycol (Miralax) 17 gm PO Q3D [facility] Last Admin: 10/29/16 21:40 Dose: 17 gm Risperidone (Risperdal) 0.5 mg PO Q6H PRN PRN Reason: Agitation Last Admin: 10/31/16 15:37 Dose: 0.5 mg Tizanidine HCl (Zanaflex) 2 mg PO Q8H PRN PRN Reason: Muscle spasm Last Admin: 10/31/16 10:06 Dose: 2 mg Subjective: Patient seen and chart reviewed. Case discussed with treatment team. On interview, patient has bright affect and is pacing but slower. Family is on unit and had discussion with them re: treatment, progress, prognosis. Patient improving overall but still too restless to sit and eat/drink - must take bites while pacing. Patient slept well overnight. VSS. Psychotropic PRNs required in the past 24 hours: Ativan x1, Risperdal x1 - does not appear Ativan makes patient more unsteady per staff. Start Time: 18:40 Stop Time: 19:00 Mental Status Exam Vitals: Last Vital Signs Temp 97.0 F 10/31/16 21:29 Pulse 81 06/16/17 21:29 Resp 16 10/31/16 21:29 BP 93/63 10/31/16 21:31 Pulse Ox 96 10/31/16 21:29 Height: 1.5 m Weight: 46.6 kg - Mental Status Exam Muscle Strength/Tone: Weak Dressing: Casual Grooming: Poor Attitude: Vigilant, Other (cooperation varies but improving overall) Motor Activity: Pacing, Restless (improving) Eye Contact: Poor Volume: Soft Rhythm: Mumbled, Paucity of Language Sensory: Alert Orientation: Disoriented to time, Disoriented to place, Disoriented to situation Mood: Anxious, Other (affect improving overall, still somewhat labile but brighter at times) Rate of Thoughts: Delayed Thought Organization: Disorganized, Confused Associations: Illogical Abstract Reasoning: Impaired, concrete Thought Content: Other (frequently regresses, speaks in childlike voice about past trauma) Perception/Psychotic: Perception Normal, Other Language: Naming Impaired Fund of Knowledge: Poor fund of knowledge Memory: Poor-immediate, Poor-recent, Poor-remote Suicidal Ideation: None Homicidal Ideation: None Insight: Impaired Judgement: Impaired Impulse Control: Poor (though improving) - Laboratory Result Diagrams: 10/24/16 04:53 10/31/16 06:44 Laboratory Results - last 24 hr 10/31/16 06:44 Turbidity < 20 Sodium 145 H Potassium 3.9 Chloride 107 Carbon Dioxide 28 Anion Gap 10 BUN 17.0 Creatinine 0.7 GFR Calculation 86 BUN/Creatinine Ratio 24 Glucose 70 Calculated Osmolality 279 Calcium 9.3 Total Bilirubin 0.60 Icterus Index < 2 AST 33 ALT 56 H Alkaline Phosphatase 81 Total Protein 6.4 Albumin 4.1 Globulin 2.3 L Albumin/Globulin Ratio 1.8 Specimen Hemolysis < 15 Assessment and Plan (1) Major neurocognitive disorder Problem details: with behavioral disturbance, due to frontotemporal brain disease Current visit: Yes Status: Chronic (2) Frontotemporal brain disease Current visit: Yes Status: Chronic (3) Chronic kidney disease Current visit: Yes Status: Acute (4) Elevated LFTs Current visit: Yes Status: Acute (5) Mixed hyperlipidemia Current visit: Yes Status: Acute Patient has been getting Zyprexa daily in AM. Discontinue completely - monitor restlessness tomorrow, insomnia and mood.
[2016-11-01] MEDS: MELOXICAM 15 MG TABLET PO SCH (07:43)
[2016-11-01] MEDS: LORazepam 0.5 MG TABLET PO PRN ×2 (07:46→15:04)
[2016-11-01] MEDS: GABAPENTIN 400 MG CAPSULE PO SCH ×3 (08:00→22:07)
--- NOTE | 2016-11-01 15:54 | Neuropsych Progress Note ---
Generations Subjective Date: 11/01/16 - Sujective/Severity of Illness Medications: Docusate Sodium (Colace) 100 mg PO BID PRN Gabapentin (Neurontin) 400 mg PO TID [facility] Last Admin: 11/01/16 15:04 Dose: 400 mg Lorazepam (Ativan Inj) 0.5 mg IM Q6H PRN PRN Reason: Extreme agitation Lorazepam (Ativan) 0.5 mg PO Q6H PRN PRN Reason: Extreme agitation Last Admin: 11/01/16 15:04 Dose: 0.5 mg Lorazepam (Ativan) 0.5 mg PO HS [facility] Last Admin: 10/31/16 21:00 Dose: 0.5 mg Melatonin (Melatonin) 3 mg PO HS [facility] Last Admin: 10/31/16 20:59 Dose: 3 mg Meloxicam (Mobic) [address] [facility] Last Admin: 11/01/16 07:43 Dose: 15 mg Mirtazapine (Remeron) 15 mg PO [facility] Last Admin: 10/31/16 21:02 Dose: 15 mg Polyethylene Glycol (Miralax) 17 gm PO Q3D [facility] Last Admin: 10/29/16 21:40 Dose: 17 gm Risperidone (Risperdal) 0.5 mg PO Q6H PRN PRN Reason: Agitation Last Admin: 10/31/16 15:37 Dose: 0.5 mg Tizanidine HCl (Zanaflex) 2 mg PO Q8H PRN PRN Reason: Muscle spasm Last Admin: 10/31/16 10:06 Dose: 2 mg Subjective: Patient seen and chart reviewed. Case discussed with treatment team. On interview, patient is observed pacing halls. Bright affect overall - talks about son frequently, greets me pleasantly but then overheard cussing at others (does not seem to be in distress). Slower pace overall. Nursing staff report patient was able to sit down and eat for 2 meals today. Cooperative with cares with no difficulties. Able to sit down in room while visitors were present yesterday. Patient slept well overnight. VSS. Start Time: 13:40 Stop Time: 14:00 Mental Status Exam Vitals: Last Vital Signs Temp 97 F 11/01/16 08:00 Pulse 82 11/01/16 08:00 Resp 18 11/01/16 08:00 BP 137/73 11/01/16 08:00 Pulse Ox 100 11/01/16 08:00 Height: 1.5 m Weight: 46.6 kg - Mental Status Exam Muscle Strength/Tone: Weak Dressing: Casual Grooming: Poor Attitude: Vigilant, Other (cooperation varies but improving overall) Motor Activity: Pacing, Restless (improving) Eye Contact: Poor Volume: Soft Rhythm: Mumbled, Paucity of Language Orientation: Disoriented to time, Disoriented to place, Disoriented to situation Mood: Anxious, Other (affect improving overall, still somewhat labile but brighter at times) Rate of Thoughts: Delayed Thought Organization: Disorganized, Confused Associations: Illogical Abstract Reasoning: Impaired, concrete Thought Content: Other (frequently regresses, speaks in childlike voice about past trauma) Perception/Psychotic: Perception Normal, Other Language: Naming Impaired Fund of Knowledge: Poor fund of knowledge Memory: Poor-immediate, Poor-recent, Poor-remote Suicidal Ideation: None Homicidal Ideation: None Insight: Impaired Judgement: Impaired Impulse Control: Poor (though improving) - Laboratory Result Diagrams: 10/24/16 04:53 10/31/16 06:44 Laboratory Results - last 24 hr 11/01/16 06:23 Creatine Kinase 139 H Assessment and Plan (1) Major neurocognitive disorder Problem details: with behavioral disturbance, due to frontotemporal brain disease Current visit: Yes Status: Chronic (2) Frontotemporal brain disease Current visit: Yes Status: Chronic (3) Chronic kidney disease Current visit: Yes Status: Acute (4) Elevated LFTs Current visit: Yes Status: Acute (5) Mixed hyperlipidemia Current visit: Yes Status: Acute Continue current care - continue to monitor for rest of day since discontinuing antipsychotic. May consider trial of guanfacine tomorrow as it was very brief previously.
[2016-11-01] MEDS: MELATONIN 1 MG TABLET PO SCH (22:06)
[2016-11-01] MEDS: LORazepam 0.5 MG TABLET PO SCH (22:07)
[2016-11-01] MEDS: MIRTAZAPINE 15 MG TABLET PO SCH (22:07)
[2016-11-01] MEDS: POLYETHYL GLYCOL 3350 17gm PACKET PO SCH (22:08)
[2016-11-02] MEDS: MELOXICAM 15 MG TABLET PO SCH (10:08)
[2016-11-02] MEDS: GABAPENTIN 400 MG CAPSULE PO SCH ×3 (10:08→21:17)
--- NOTE | 2016-11-02 10:55 | Progress Note ---
Subjective: Tamra is seen in follow up. She is in bed, awake. Turns back and forth, but is fairly calm. She appears less angry today. States several times quietly "I like you." Chart is reviewed. Objective Vital signs: Temp Pulse Resp BP Pulse Ox 98.4 F 79 13 104/56 96 11/01/16 20:00 11/01/16 20:00 11/01/16 20:00 11/01/16 20:00 11/01/16 20:00 Weight: 46.6 kg - Constitutional Present: no acute distress, thin, cooperative - Routine HEENT Exam Head: Present: normocephalic, atraumatic Eye: Present: EOMI, PERRL ENT: Present: mucous membranes dry. Absent: dentition normal - Routine Respiratory Exam Present: CTA bilaterally. Absent: rales, rhonchi, wheezes, crackles - Routine Cardiovascular Exam Present: RRR, S1, S2, no murmur. Absent: murmur - Routine Abdominal Exam Present: soft, normoactive bowel sounds, non distended, non tender - Routine Extremities Exam Present: no edema, non tender. Absent: edema - Routine Musculoskeletal Exam Musculoskeletal: no clubbing or cyanosis, no tenderness, moving extremities well - Routine Skin Exam Present: dry, warm - Routine Neurological Exam Present: alert - Routine Psychiatric Exam Absent: normal affect, normal thought process, good insight, good judgment Results - Labs CBC & Chem 7: 10/24/16 04:53 10/31/16 06:44 Assessment and Plan (1) Dementia with behavioral problem Current visit: Yes Status: Acute (2) Mixed hyperlipidemia Current visit: Yes Status: Acute (3) Chronic kidney disease Current visit: Yes Status: Acute (4) Elevated LFTs Current visit: Yes Status: Acute (5) Major neurocognitive disorder Problem details: with behavioral disturbance, due to frontotemporal brain disease Current visit: Yes Status: Chronic (6) Frontotemporal brain disease Current visit: Yes Status: Chronic (7) Weight loss, non-intentional Current visit: Yes Status: Acute (8) Protein-calorie malnutrition, mild Current visit: Yes Status: Acute DVT Prophylaxis: other (N/A) Resuscitation Status: Full Code Assessment and Plan: 11/02/16- *Cognitive deficit/Behavioral dyscontrol- Per psych. Notes reviewed. Still variable behaviors. *Malnutrition- due to severe pacing, minimal rest. I did consult placement assistant-await evaluation. Encourage oral intake. She will need extensive calories to offset activity. Johnnie count. Add supplements. *Elevated LFTs, mild- assess Hep Panel. Repeat CMP in AM for stability *HLD- Avoid statins given risk of Rhabdo with activity level. Mildly elevated CPK. Trending down. Sepsis Assessment - Evaluation Sepsis screening result: No Definite Risk - Focused Exam Respiratory exam: Absent: accessory muscle use, respiratory distress Cardiovascular exam: Present: RRR, S1, S2 Capillary refill: < 2-3 Seconds Hospital Course Summary Disclaimer: The visit summary below is not to be considered part of the above Progress Note. Hospital Course: 10/24/16 08:47 Agree with admission 1. Chart reviewed in detail -labs from Sep, 2016 (CBC, CMP, and lipid panel) were fairly unremarkable -Pt was unable to provide any personal history 2. Mild elevations in LFTs -new compared to labs from September -?med related 3. CKD -noted in chart -renal function is stable with creatinine of 0.7 and GFR of 86 4. Psych -unable to examine, doubt we would be able to successfully obtain any imaging or labs -eval pending 10/25/16 16:40 10/25/16- Medical team Tamra is rapidly pacing the halls. This is documented to have been ongoing for some time- Suspect this is the main cause of her significant weight loss. She is also not eating. Add PO supplements 4x/day. She will need to have excess calories to offset the excessive exercise. Attending adjusting meds. Remeron is noted- hope this will help appetite. Mild elevated LFTs- recheck labs in AM. Assess CPK as well due to exercise amounts. Chart reviewed for collateral information. 10/26/16 10:29 Elevated LFTs -AST decreased slightly to 37, and ALT is now in normal range at 51 -CK is elevated at 277 (range is 30-135) -Lipid panel is pending, but in September 2016, Trigs 74, HDL 46, LDL (142H), VLDL 15 , Cardiac risk 4.4, nonHDL 157 Mild protein calorie malnutrition -Encourage oral intake -Dietitian has been consulted Labs reviewed -TSH is normal at 1.41 -Vitamin B12 and folate are pending -RPR: Nonreactive -Urinalysis is negative for UTI Psychiatry notes reviewed -Discontinue Paxil -Increase Remeron dose -Negative timing of Zyprexa to HS -Trial of gabapentin later today 10/29/16 13:39 Labs reviewed -Cholesterol level elevated -Vitamin B12 is low range of normal; folate was normal -recheck LFTs, CPK to ensure they are trending down on 10/31/16 Vital signs overall remain stable. Mild PCM -[facility] Brusher recommended Boost Breeze with every meal. Psychiatry notes reviewed -increase gabapentin to 400mg po tid -goal is to reduce zyprexa which could exacerbate restlessness. -test dose of guanfacine -considering depakote 10/31/16 15:11 CMP obtained this morning, AST was down to 33, but ALT has increased slightly to 56. Alkaline phosphatase is normal at 81. Remainder of chemistries remained stable. Otherwise, medically stable, though need to encourage oral intake. Psychiatry notes reviewed 11/02/16 10:59 *Cognitive deficit/Behavioral dyscontrol- Per psych. Notes reviewed. Still variable behaviors. *Malnutrition- due to severe pacing, minimal rest. I did consult placement assistant-await evaluation. Encourage oral intake. She will need extensive calories to offset activity. Johnnie count. Add supplements. *Elevated LFTs, mild- assess Hep Panel. Repeat CMP in AM for stability *HLD- Avoid statins given risk of Rhabdo with activity level. Mildly elevated CPK. Trending down.
[2016-11-02] MEDS: GUANFACINE 1 MG TABLET PO SCH ×2 (12:04→21:17)
[2016-11-02] MEDS ORDERED: OLANZapine 2.5 MG TABLET PO ONE (14:30)
--- NOTE | 2016-11-02 19:00 | Neuropsych Progress Note ---
Generations Subjective Date: 11/02/16 - Sujective/Severity of Illness Medications: Docusate Sodium (Colace) 100 mg PO BID PRN Gabapentin (Neurontin) 400 mg PO TID [facility] Last Admin: 11/02/16 14:01 Dose: 400 mg Guanfacine HCl (Tenex) 0.5 mg PO 13,21 [facility] Last Admin: 11/02/16 12:04 Dose: 0.5 mg Lorazepam (Ativan Inj) 0.5 mg IM Q6H PRN PRN Reason: Extreme agitation Lorazepam (Ativan) 0.5 mg PO Q6H PRN PRN Reason: Extreme agitation Last Admin: 11/01/16 15:04 Dose: 0.5 mg Lorazepam (Ativan) 0.5 mg PO HS [facility] Last Admin: 11/01/16 22:07 Dose: 0.5 mg Magnesium Hydroxide (Mom) 30 ml PO DAILY PRN PRN Reason: Constipation Last Admin: 11/02/16 11:46 Dose: 30 ml Melatonin (Melatonin) 3 mg PO HS [facility] Last Admin: 11/01/16 22:06 Dose: 3 mg Meloxicam (Mobic) 15 mg PO WB [facility] Last Admin: 11/02/16 10:08 Dose: 15 mg Mirtazapine (Remeron) 15 mg PO HS [facility] Last Admin: 11/01/16 22:07 Dose: 15 mg Polyethylene Glycol (Miralax) 17 gm PO Q3D [facility] Last Admin: 11/01/16 22:08 Dose: 17 gm Risperidone (Risperdal) 0.5 mg PO Q6H PRN PRN Reason: Agitation Last Admin: 10/31/16 15:37 Dose: 0.5 mg Tizanidine HCl (Zanaflex) 2 mg PO Q8H PRN PRN Reason: Muscle spasm Last Admin: 11/02/16 15:46 Dose: 2 mg Subjective: Patient seen and chart reviewed. Case discussed with treatment team. On interview, patient is lying in bed and somewhat restless but is not constantly pacing. She repeats "I like you" several times and then "I like her" though there is no one else in the room. Nursing staff report patient has been behaving similarly throughout [facility] but has not been aggressive. Patient slept 7 hours overnight. VSS. Patient's PO intake is problematic as she is mostly pacing through days. Psychotropic PRNs required in the past 24 hours: Ativan x2, Xanaflex x1 in past 24 hours. Start Time: 10:40 Stop Time: 11:00 Mental Status Exam Vitals: Last Vital Signs Temp 98.0 F 11/02/16 16:00 Pulse 85 11/02/16 16:00 Resp 31 H 11/02/16 16:00 BP 112/69 11/02/16 16:00 Pulse Ox 99 11/02/16 16:00 Height: 1.5 m Weight: 46.6 kg - Mental Status Exam Muscle Strength/Tone: Weak Dressing: Casual Grooming: Poor Attitude: Vigilant, Other (cooperation varies but improving overall) Motor Activity: Restless (improving) Eye Contact: Poor Volume: Soft Rhythm: Mumbled, Paucity of Language Sensory: Alert Orientation: Disoriented to time, Disoriented to place, Disoriented to situation Mood: Anxious, Other (affect improving overall, still somewhat labile but brighter at times) Rate of Thoughts: Delayed Thought Organization: Disorganized, Confused Associations: Illogical Abstract Reasoning: Impaired, concrete Thought Content: Other (frequently regresses, speaks in childlike voice about past trauma) Perception/Psychotic: Perception Normal, Other Language: Naming Impaired Fund of Knowledge: Poor fund of knowledge Memory: Poor-immediate, Poor-recent, Poor-remote Suicidal Ideation: None Homicidal Ideation: None Insight: Impaired Judgement: Impaired Impulse Control: Poor (though improving) - Laboratory Result Diagrams: 10/24/16 04:53 10/31/16 06:44 Assessment and Plan (1) Major neurocognitive disorder Problem details: with behavioral disturbance, due to frontotemporal brain disease Current visit: Yes Status: Chronic (2) Frontotemporal brain disease Current visit: Yes Status: Chronic (3) Chronic kidney disease Current visit: Yes Status: Acute (4) Elevated LFTs Current visit: Yes Status: Acute (5) Mixed hyperlipidemia Current visit: Yes Status: Acute Continue to monitor s/p discontinuation of Zyprexa. Start Tenex 0.5mg PO at 1300 , HS as it was previously helpful in decreasing motor restlessness.
[2016-11-02] MEDS: MELATONIN 1 MG TABLET PO SCH (21:16)
[2016-11-02] MEDS: MIRTAZAPINE 15 MG TABLET PO SCH (21:17)
[2016-11-02] MEDS: LORazepam 0.5 MG TABLET PO SCH (21:17)
[2016-11-03] MEDS: GABAPENTIN 400 MG CAPSULE PO SCH ×3 (08:56→21:20)
[2016-11-03] MEDS: MELOXICAM 15 MG TABLET PO SCH (08:56)
[2016-11-03] MEDS: LORazepam 0.5 MG TABLET PO PRN (09:03)
[2016-11-03] MEDS ORDERED: LORazepam 1 MG TABLET PO ONE (12:05)
[2016-11-03] MEDS: GUANFACINE 1 MG TABLET PO SCH ×2 (15:21→21:22)
[2016-11-03] MEDS: RisperiDONE 0.5 MG TABLET PO PRN (17:05)
[2016-11-03] MEDS: MELATONIN 1 MG TABLET PO SCH (21:20)
[2016-11-03] MEDS: LORazepam 0.5 MG TABLET PO SCH (21:21)
[2016-11-03] MEDS: MIRTAZAPINE 15 MG TABLET PO SCH (21:22)
--- NOTE | 2016-11-03 23:22 | Neuropsych Progress Note ---
Generations Subjective Date: 11/03/16 - Sujective/Severity of Illness Medications: Docusate Sodium (Colace) 100 mg PO BID PRN Gabapentin (Neurontin) 400 mg PO TID [facility] Last Admin: 11/03/16 21:20 Dose: 400 mg Guanfacine HCl (Tenex) 0.5 mg PO 13,21 [facility] Last Admin: 11/03/16 21:22 Dose: 0.5 mg Lorazepam (Ativan Inj) 0.5 mg IM Q6H PRN PRN Reason: Extreme agitation Lorazepam (Ativan) 0.5 mg PO Q6H PRN PRN Reason: Extreme agitation Last Admin: 11/03/16 09:03 Dose: 0.5 mg Lorazepam (Ativan) 0.5 mg PO HS [facility] Last Admin: 11/03/16 21:21 Dose: 0.5 mg Magnesium Hydroxide (Mom) 30 ml PO DAILY PRN PRN Reason: Constipation Last Admin: 11/02/16 11:46 Dose: 30 ml Melatonin (Melatonin) 3 mg PO HS [facility] Last Admin: 11/03/16 21:20 Dose: 3 mg Meloxicam (Mobic) 15 mg PO WB [facility] Last Admin: 11/03/16 08:56 Dose: 15 mg Mirtazapine (Remeron) 15 mg PO HS [facility] Last Admin: 11/03/16 21:22 Dose: 15 mg Polyethylene Glycol (Miralax) 17 gm PO Q3D [facility] Last Admin: 11/01/16 22:08 Dose: 17 gm Risperidone (Risperdal) 0.5 mg PO Q6H PRN PRN Reason: Agitation Last Admin: 11/03/16 17:05 Dose: 0.5 mg Tizanidine HCl (Zanaflex) 2 mg PO Q8H PRN PRN Reason: Muscle spasm Last Admin: 11/03/16 17:05 Dose: 2 mg Subjective: Patient seen and chart reviewed. Patient has had persistent agitation all day with constant pacing, confusion and disorganized behavior. 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 Patient was placed in [facility] about 1 year ago. Family feels like she responded well to Risperidone in the past, but there was numerous changes. Patient has gotten about 1.5mg of Lorazepam today and she also received 0.5mg of Risperidone this PM. Review of labs shows elevated AST/ALT. NH3 Level was seen to be less 9. Start Time: 19:00 Stop Time: 19:20 Mental Status Exam Vitals: Last Vital Signs Temp 98.2 F 11/03/16 19:34 Pulse 81 11/03/16 19:34 Resp 16 11/03/16 19:34 BP 118/69 11/03/16 19:34 Pulse Ox 100 11/03/16 19:34 Height: 1.5 m Weight: 46.6 kg - Mental Status Exam Muscle Strength/Tone: Weak Dressing: Casual Grooming: Poor Attitude: Vigilant, Other (cooperation varies but improving overall) Motor Activity: Restless (improving) Eye Contact: Poor Volume: Soft Rhythm: Mumbled, Paucity of Language Orientation: Disoriented to time, Disoriented to place, Disoriented to situation Mood: Anxious, Other (affect improving overall, still somewhat labile but brighter at times) Rate of Thoughts: Delayed Thought Organization: Disorganized, Confused Associations: Illogical Abstract Reasoning: Impaired, concrete Thought Content: Other (frequently regresses, speaks in childlike voice about past trauma) Perception/Psychotic: Perception Normal, Other Language: Naming Impaired Fund of Knowledge: Poor fund of knowledge Memory: Poor-immediate, Poor-recent, Poor-remote Suicidal Ideation: None Homicidal Ideation: None Insight: Impaired Judgement: Impaired Impulse Control: Poor (though improving) - Laboratory Result Diagrams: 11/03/16 07:44 11/03/16 07:44 Laboratory Results - last 24 hr 11/03/16 11/03/16 11/03/16 07:44 07:44 10:00 WBC 7.1 RBC 4.22 Hgb 13.5 Hct 40.3 MCV 95.5 MCH 32.0 MCHC 33.5 RDW Std Deviation 42.9 Plt Count 323 MPV 9.5 Immature Gran % (Auto) 0.1 Neut % (Auto) 57.0 Lymph % (Auto) 29.0 [place] % (Auto) 8.0 Eos % (Auto) 5.1 H Baso % (Auto) 0.8 Neut # 4.1 Lymph # 2.1 [place] # 0.6 Eos # 0.4 Baso # 0.1 Abs Immat Gran (auto) 0.01 Turbidity < 20 Sodium 142 Potassium 4.1 Chloride 108 H Carbon Dioxide 25 Anion Gap 9 BUN 16.0 Creatinine 0.7 GFR Calculation 86 BUN/Creatinine Ratio 23 Glucose 87 Calculated Osmolality 273 Calcium 8.9 Total Bilirubin 0.70 Icterus Index < 2 AST 62 H ALT 90 H Alkaline Phosphatase 91 Ammonia < 9 L Total Protein 6.0 L Albumin 3.7 Globulin 2.3 L Albumin/Globulin Ratio 1.6 Specimen Hemolysis < 15 Assessment and Plan (1) Chronic kidney disease Current visit: Yes Status: Acute (2) Elevated LFTs Current visit: Yes Status: Acute (3) Mixed hyperlipidemia Current visit: Yes Status: Acute (4) Weight loss, non-intentional Current visit: Yes Status: Acute (5) Frontotemporal brain disease Current visit: Yes Status: Chronic (6) Major neurocognitive disorder Problem details: with behavioral disturbance, due to frontotemporal brain disease Current visit: Yes Status: Chronic Cont current medication
[2016-11-04] MEDS: LORazepam 0.5 MG TABLET PO PRN (08:20)
[2016-11-04] MEDS: GABAPENTIN 400 MG CAPSULE PO SCH ×3 (08:20→20:59)
[2016-11-04] MEDS: MELOXICAM 15 MG TABLET PO SCH (08:20)
[2016-11-04] MEDS: RisperiDONE 0.5 MG TABLET PO PRN ×2 (08:20→12:56)
[2016-11-04] MEDS: GUANFACINE 1 MG TABLET PO SCH ×2 (12:21→20:59)
[2016-11-04] MEDS: ACETAMINOPHEN 325 MG TABLET PO PRN (12:56)
[2016-11-04] MEDS: RisperiDONE 0.5 MG TABLET PO SCH ×2 (16:10→20:59)
--- NOTE | 2016-11-04 18:42 | Neuropsych Progress Note ---
[facility] Subjective Date: 11/04/16 - Sujective/Severity of Illness Medications: Acetaminophen (Tylenol) 650 mg PO Q5H PRN PRN Reason: Discomfort Last Admin: 11/04/16 12:56 Dose: 650 mg Docusate Sodium (Colace) 100 mg PO BID PRN Gabapentin (Neurontin) 400 mg PO TID [facility] Last Admin: 11/04/16 16:10 Dose: 400 mg Guanfacine HCl (Tenex) 0.5 mg PO 13,21 [facility] Last Admin: 11/04/16 12:21 Dose: Not Given Lorazepam (Ativan Inj) 0.5 mg IM Q6H PRN PRN Reason: Extreme agitation Lorazepam (Ativan) 0.5 mg PO Q6H PRN PRN Reason: Extreme agitation Last Admin: 11/04/16 08:20 Dose: 0.5 mg Lorazepam (Ativan) 0.5 mg PO HS [facility] Last Admin: 11/03/16 21:21 Dose: 0.5 mg Magnesium Hydroxide (Mom) 30 ml PO DAILY PRN PRN Reason: Constipation Last Admin: 11/02/16 11:46 Dose: 30 ml Melatonin (Melatonin) 3 mg PO HS [facility] Last Admin: 11/03/16 21:20 Dose: 3 mg Meloxicam (Mobic) 15 mg PO WB [facility] Last Admin: 11/04/16 08:20 Dose: 15 mg Mirtazapine (Remeron) 15 mg PO HS [facility] Last Admin: 11/03/16 21:22 Dose: 15 mg Polyethylene Glycol (Miralax) 17 gm PO Q3D [facility] Last Admin: 11/01/16 22:08 Dose: 17 gm Risperidone (Risperdal) 0.5 mg PO TID [facility] Last Admin: 11/04/16 16:10 Dose: 0.5 mg Tizanidine HCl (Zanaflex) 2 mg PO Q8H PRN PRN Reason: Muscle spasm Last Admin: 11/03/16 17:05 Dose: 2 mg Subjective: Patient seen, chart reviewed and case discussed with staff. She continues to have dysarthric tone, continuos agitation and there is associated wobbly gait. 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 Discussed the logistic of obtaining Ceruloplasmin level with the lab and the plan is to draw the blood tomorrow morning and send it out. Meanwhile will schedule Risperidone 0.5mg TID since family reports good response to it in the past. Start Time: 13:40 Stop Time: 14:00 Mental Status Exam Vitals: Last Vital Signs Temp 96.8 F 11/04/16 16:00 Pulse 111 H 11/04/16 16:00 Resp 16 11/04/16 11:47 BP 135/69 11/04/16 16:00 Pulse Ox 98 11/04/16 11:47 Height: 1.5 m Weight: 46.6 kg - Mental Status Exam Muscle Strength/Tone: Weak Dressing: Casual Grooming: Poor Attitude: Uncooperative Motor Activity: Restless (when awake) Eye Contact: Poor Volume: Loud Rhythm: Mumbled, Paucity of Language Orientation: Disoriented to time, Disoriented to place, Disoriented to situation Mood: Irritable, Anxious, Fearful Rate of Thoughts: Delayed Thought Organization: Disorganized, Confused Associations: Illogical Abstract Reasoning: Impaired, concrete Thought Content: Other (frequently regresses, speaks in childlike voice about past trauma) Perception/Psychotic: Perception Normal, Other Language: Naming Impaired Fund of Knowledge: Poor fund of knowledge Memory: Poor-immediate, Poor-recent, Poor-remote Suicidal Ideation: None Homicidal Ideation: None Insight: Impaired Judgement: Impaired Impulse Control: Poor (though improving) - Laboratory Result Diagrams: 11/03/16 07:44 11/03/16 07:44 Laboratory Results - last 24 hr 11/03/16 07:44 Hepatitis A IgM Ab Negative Hep Bs Antigen Negative Hep B Core IgM Ab Negative Hepatitis C Antibody Negative Assessment and Plan (1) Frontotemporal brain disease Current visit: Yes Status: Chronic (2) Major neurocognitive disorder Problem details: with behavioral disturbance, due to frontotemporal brain disease Current visit: Yes Status: Chronic (3) Chronic kidney disease Current visit: Yes Status: Acute (4) Elevated LFTs Current visit: Yes Status: Acute (5) Mixed hyperlipidemia Current visit: Yes Status: Acute (6) Weight loss, non-intentional Current visit: Yes Status: Acute R/ O Dick's Disease: Will obtain Ceruloplasmin level tomorrow. Schedule Risperidone 0.5mg TID
[2016-11-04] MEDS: POLYETHYL GLYCOL 3350 17gm PACKET PO SCH (21:46)
[2016-11-04] MEDS: MIRTAZAPINE 15 MG TABLET PO SCH (21:47)
[2016-11-04] MEDS: MELATONIN 1 MG TABLET PO SCH (21:47)
[2016-11-04] MEDS: LORazepam 0.5 MG TABLET PO SCH (21:47)
[2016-11-05] MEDS: RisperiDONE 0.5 MG TABLET PO SCH ×3 (08:28→21:13)
[2016-11-05] MEDS: MELOXICAM 15 MG TABLET PO SCH (08:28)
[2016-11-05] MEDS: GABAPENTIN 400 MG CAPSULE PO SCH ×3 (08:28→21:13)
[2016-11-05] MEDS: LORazepam 0.5 MG TABLET PO PRN ×2 (09:09→15:49)
[2016-11-05] MEDS: GUANFACINE 1 MG TABLET PO SCH (14:17)
--- NOTE | 2016-11-05 15:44 | Progress Note ---
Subjective: Tamra is seen today while pacing up and down the halls while yelling and making noise. She will not stop for an examination or answer any questions. She has been requiring one on one in her room this afternoon. BP earlier was elevated at 94/56. Objective Vital signs: Temp Pulse Resp BP Pulse Ox 97.6 F 69 14 94/56 98 11/05/16 08:00 11/05/16 12:34 11/05/16 12:34 11/05/16 12:34 11/04/16 19:59 Weight: 46.6 kg - Constitutional Present: no acute distress, thin, agitated - Routine HEENT Exam Head: Present: normocephalic Eye: Present: EOMI ENT: Present: mucous membranes moist - Routine Skin Exam Present: intact, warm - Routine Neurological Exam Present: alert, CN II-XII intact - Routine Psychiatric Exam Present: anxious, agitated Results - Labs CBC & Chem 7: 11/03/16 07:44 11/03/16 07:44 Assessment and Plan (1) Dementia with behavioral problem Current visit: Yes Status: Acute (2) Mixed hyperlipidemia Current visit: Yes Status: Acute (3) Chronic kidney disease Current visit: Yes Status: Acute (4) Elevated LFTs Current visit: Yes Status: Acute (5) Major neurocognitive disorder Problem details: with behavioral disturbance, due to frontotemporal brain disease Current visit: Yes Status: Chronic (6) Frontotemporal brain disease Current visit: Yes Status: Chronic (7) Weight loss, non-intentional Current visit: Yes Status: Acute (8) Protein-calorie malnutrition, mild Current visit: Yes Status: Acute Assessment and Plan: 11/05/16 *Cognitive deficit/Behavioral Dr Porras notes reviewed. Risperidone 0.5mg TID Ceruloplasmin level pending *Malnutrition- Likely related to pacing with minimal rest. Encourage oral intake as well as nutritional supplements. *Elevated LFTs, mild Will recheck tomorrow 11/06 assess Hep Panel. Repeat CMP in AM for stability *HLD- Avoid statins given risk of Rhabdo with activity level. Sepsis Assessment - Evaluation Sepsis screening result: No Definite Risk Hospital Course Summary Disclaimer: The visit summary below is not to be considered part of the above Progress Note. Hospital Course: 10/24/16 08:47 Agree with admission 1. Chart reviewed in detail -labs from Sep, 2016 (CBC, CMP, and lipid panel) were fairly unremarkable -Pt was unable to provide any personal history 2. Mild elevations in LFTs -new compared to labs from September -?med related 3. CKD -noted in chart -renal function is stable with creatinine of 0.7 and GFR of 86 4. Psych -unable to examine, doubt we would be able to successfully obtain any imaging or labs -eval pending 10/25/16 16:40 10/25/16- Medical team Tamra is rapidly pacing the halls. This is documented to have been ongoing for some time- Suspect this is the main cause of her significant weight loss. She is also not eating. Add PO supplements 4x/day. She will need to have excess calories to offset the excessive exercise. Attending adjusting meds. Remeron is noted- hope this will help appetite. Mild elevated LFTs- recheck labs in AM. Assess CPK as well due to exercise amounts. Chart reviewed for collateral information. 10/26/16 10:29 Elevated LFTs -AST decreased slightly to 37, and ALT is now in normal range at 51 -CK is elevated at 277 (range is 30-135) -Lipid panel is pending, but in September 2016, Trigs 74, HDL 46, LDL (142H), VLDL 15 , Cardiac risk 4.4, nonHDL 157 Mild protein calorie malnutrition -Encourage oral intake -Dietitian has been consulted Labs reviewed -TSH is normal at 1.41 -Vitamin B12 and folate are pending -RPR: Nonreactive -Urinalysis is negative for UTI Psychiatry notes reviewed -Discontinue Paxil -Increase Remeron dose -Negative timing of Zyprexa to HS -Trial of gabapentin later today 10/29/16 13:39 Labs reviewed -Cholesterol level elevated -Vitamin B12 is low range of normal; folate was normal -recheck LFTs, CPK to ensure they are trending down on 10/31/16 Vital signs overall remain stable. Mild PCM -[employer] Rep recommended Boost Breeze with every meal. Psychiatry notes reviewed -increase gabapentin to 400mg po tid -goal is to reduce zyprexa which could exacerbate restlessness. -test dose of guanfacine -considering depakote 10/31/16 15:11 CMP obtained this morning, AST was down to 33, but ALT has increased slightly to 56. Alkaline phosphatase is normal at 81. Remainder of chemistries remained stable. Otherwise, medically stable, though need to encourage oral intake. Psychiatry notes reviewed 11/02/16 10:59 *Cognitive deficit/Behavioral dyscontrol- Per psych. Notes reviewed. Still variable behaviors. *Malnutrition- due to severe pacing, minimal rest. I did consult interior design faculty member-await evaluation. Encourage oral intake. She will need extensive calories to offset activity. Johnnie count. Add supplements. *Elevated LFTs, mild- assess Hep Panel. Repeat CMP in AM for stability *HLD- Avoid statins given risk of Rhabdo with activity level. Mildly elevated CPK. Trending down.
[2016-11-05] MEDS: ACETAMINOPHEN 325 MG TABLET PO PRN (15:49)
--- NOTE | 2016-11-05 17:53 | Neuropsych Progress Note ---
Generations Subjective Date: 11/05/16 - Sujective/Severity of Illness Medications: Acetaminophen (Tylenol) 650 mg PO Q5H PRN PRN Reason: Discomfort Last Admin: 11/05/16 15:49 Dose: 650 mg Docusate Sodium (Colace) 100 mg PO BID PRN Gabapentin (Neurontin) 400 mg PO TID [facility] Last Admin: 11/05/16 15:42 Dose: 400 mg Lorazepam (Ativan Inj) 0.5 mg IM Q6H PRN PRN Reason: Extreme agitation Lorazepam (Ativan) 0.5 mg PO Q6H PRN PRN Reason: Extreme agitation Last Admin: 11/05/16 15:49 Dose: 0.5 mg Lorazepam (Ativan) 0.5 mg PO HS [facility] Last Admin: 11/04/16 21:47 Dose: 0.5 mg Magnesium Hydroxide (Mom) 30 ml PO DAILY PRN PRN Reason: Constipation Last Admin: 11/02/16 11:46 Dose: 30 ml Melatonin (Melatonin) 3 mg PO HS [facility] Last Admin: 11/04/16 21:47 Dose: 3 mg Meloxicam (Mobic) 15 mg PO WB [facility] Last Admin: 11/05/16 08:28 Dose: 15 mg Mirtazapine (Remeron) 15 mg PO HS [facility] Last Admin: 11/04/16 21:47 Dose: 15 mg Polyethylene Glycol (Miralax) 17 gm PO Q3D [facility] Last Admin: 11/04/16 21:46 Dose: 17 gm Risperidone (Risperdal) 0.5 mg PO TID [facility] Last Admin: 11/05/16 14:05 Dose: 0.5 mg Tizanidine HCl (Zanaflex) 2 mg PO Q8H PRN PRN Reason: Muscle spasm Last Admin: 11/03/16 17:05 Dose: 2 mg Subjective: Patient seen, chart reviewed and case discussed with nursing staff. Patient has constant pacing movement with inability to sustain attention, memory deficit, poor executive function and confusion. She was said to have had few hours of sleep often punctuated by constant motor movement with flapping gait. Her speech is dysarthric and loud. Patient was started on scheduled Risperidone yesterday 0.5mg TID, She is also Guanfesin but due to persistent low BP, will have discontinue that. There was a blood draw this morning for Ceruloplasmin level and result is pending. Start Time: 13:40 Stop Time: 14:00 Mental Status Exam Vitals: Last Vital Signs Temp 97.6 F 11/05/16 08:00 Pulse 69 11/05/16 12:34 Resp 14 11/05/16 12:34 BP 94/56 11/05/16 12:34 Pulse Ox 98 11/04/16 19:59 Height: 1.5 m Weight: 46.6 kg - Mental Status Exam Muscle Strength/Tone: Weak Dressing: Casual Grooming: Poor Attitude: Uncooperative, Combative Motor Activity: Pacing, Restless (when awake) Eye Contact: Poor Speech: Other (Loud and dysarthric) Volume: Loud Rhythm: Mumbled, Paucity of Language Orientation: Disoriented to time, Disoriented to place, Disoriented to situation Mood: Irritable, Anxious, Fearful Rate of Thoughts: Delayed Thought Organization: Disorganized, Confused Associations: Illogical Abstract Reasoning: Impaired, concrete Thought Content: Other (frequently regresses, speaks in childlike voice about past trauma) Perception/Psychotic: Perception Normal, Other Language: Naming Impaired Fund of Knowledge: Poor fund of knowledge Memory: Poor-immediate, Poor-recent, Poor-remote Suicidal Ideation: None Homicidal Ideation: None Insight: Impaired Judgement: Impaired Impulse Control: Poor (though improving) - Laboratory Result Diagrams: 11/03/16 07:44 11/03/16 07:44 Assessment and Plan (1) Frontotemporal brain disease Current visit: Yes Status: Chronic (2) Major neurocognitive disorder Problem details: with behavioral disturbance, due to frontotemporal brain disease Current visit: Yes Status: Chronic (3) Chronic kidney disease Current visit: Yes Status: Acute (4) Elevated LFTs Current visit: Yes Status: Acute (5) Mixed hyperlipidemia Current visit: Yes Status: Acute (6) Weight loss, non-intentional Current visit: Yes Status: Acute Cont current treatment. Await the result of Ceruloplasmin level.
[2016-11-05] MEDS: MELATONIN 1 MG TABLET PO SCH (21:13)
[2016-11-05] MEDS: LORazepam 0.5 MG TABLET PO SCH (21:14)
[2016-11-05] MEDS: MIRTAZAPINE 15 MG TABLET PO SCH (21:14)
[2016-11-06] MEDS: RisperiDONE 0.5 MG TABLET PO SCH ×3 (09:06→21:32)
[2016-11-06] MEDS: MELOXICAM 15 MG TABLET PO SCH (09:07)
[2016-11-06] MEDS: DOCUSATE SODIUM 100 MG CAPSULE PO PRN (09:07)
[2016-11-06] MEDS: GABAPENTIN 400 MG CAPSULE PO SCH ×3 (09:07→21:32)
--- NOTE | 2016-11-06 11:29 | Neuropsych Progress Note ---
Generations Subjective Date: 11/06/16 - Sujective/Severity of Illness Medications: Acetaminophen (Tylenol) 650 mg PO Q5H PRN PRN Reason: Discomfort Last Admin: 11/05/16 15:49 Dose: 650 mg Docusate Sodium (Colace) 100 mg PO BID PRN Last Admin: 11/06/16 09:07 Dose: 100 mg Gabapentin (Neurontin) 400 mg PO TID [facility] Last Admin: 11/06/16 09:07 Dose: 400 mg Lorazepam (Ativan) 0.5 mg PO 1100,1730 [facility] Lorazepam (Ativan Inj) 0.5 mg IM Q6H PRN PRN Reason: Extreme agitation Lorazepam (Ativan) 0.5 mg PO Q6H PRN PRN Reason: Extreme agitation Last Admin: 11/05/16 15:49 Dose: 0.5 mg Magnesium Hydroxide (Mom) 30 ml PO DAILY PRN PRN Reason: Constipation Last Admin: 11/02/16 11:46 Dose: 30 ml Melatonin (Melatonin) 3 mg PO HS [facility] Last Admin: 11/05/16 21:13 Dose: 3 mg Meloxicam (Mobic) 15 mg PO WB [facility] Last Admin: 11/06/16 09:07 Dose: 15 mg Mirtazapine (Remeron) 15 mg PO HS [facility] Last Admin: 11/05/16 21:14 Dose: 15 mg Polyethylene Glycol (Miralax) 17 gm PO Q3D [facility] Last Admin: 11/04/16 21:46 Dose: 17 gm Risperidone (Risperdal) 0.5 mg PO TID [facility] Last Admin: 11/06/16 09:06 Dose: 0.5 mg Tizanidine HCl (Zanaflex) 2 mg PO Q8H PRN PRN Reason: Muscle spasm Last Admin: 11/06/16 09:07 Dose: 2 mg Subjective: Patient seen, chart reviewed and case discussed with nursing staff. She was seen to be under constant observation (CO) due to her constant agitation and confusion. She mumbles incomprehensible words and unable to sustain attention or follow instruction. Her constant pacing movement continues to place her at imminent risk of hurting herself or other clients on the unit, there by necessitating CO. Patient has been tried on several anti-psychotic medication and none appears to have significant effect on her. The goal is to have patient be able to sit through in a facility with risk of possible injury to herself or other. She is on Risperidone 0.5mg TID and has over the last 48 hours required Lorazepam 0.5mg PRN. Will schedule Lorazepam 0.5mg. Evaluated patient for rigidity and there is no increase tone in her elbow joints. Start Time: 09:00 Stop Time: 09:20 Mental Status Exam Vitals: Last Vital Signs Temp 98.2 F 11/05/16 20:26 Pulse 84 11/05/16 20:26 Resp 18 11/05/16 20:26 BP 94/61 11/05/16 20:26 Pulse Ox 95 11/05/16 20:26 Height: 1.5 m Weight: 46.6 kg - Mental Status Exam Muscle Strength/Tone: Weak (risk of fall) Dressing: Casual Grooming: Disheveled Attitude: Uncooperative, Combative Motor Activity: Pacing, Restless (when awake) Eye Contact: Poor Speech: Other (Loud and dysarthric) Volume: Loud Rhythm: Mumbled, Paucity of Language Orientation: Disoriented to time, Disoriented to place, Disoriented to situation Mood: Irritable, Anxious, Fearful Rate of Thoughts: Delayed Thought Organization: Disorganized, Confused Associations: Illogical Abstract Reasoning: Impaired, concrete Thought Content: Other (frequently regresses, speaks in childlike voice about past trauma) Perception/Psychotic: Perception Normal, Other Language: Naming Impaired Fund of Knowledge: Poor fund of knowledge Memory: Poor-immediate, Poor-recent, Poor-remote Suicidal Ideation: None Homicidal Ideation: None Insight: Impaired Judgement: Impaired Impulse Control: Poor (though improving) - Laboratory Result Diagrams: 11/03/16 07:44 11/03/16 07:44 Assessment and Plan (1) Frontotemporal brain disease Current visit: Yes Status: Chronic (2) Major neurocognitive disorder Problem details: with behavioral disturbance, due to frontotemporal brain disease Current visit: Yes Status: Chronic (3) Chronic kidney disease Current visit: Yes Status: Acute (4) Elevated LFTs Current visit: Yes Status: Acute (5) Mixed hyperlipidemia Current visit: Yes Status: Acute (6) Weight loss, non-intentional Current visit: Yes Status: Acute Awaiting Ceruloplasmin level. Lorazepam 0.5mg BID( Noon and supper)
[2016-11-06] MEDS: LORazepam 0.5 MG TABLET PO SCH ×2 (12:33→17:45)
[2016-11-06] MEDS: MIRTAZAPINE 15 MG TABLET PO SCH (21:32)
[2016-11-06] MEDS: MELATONIN 1 MG TABLET PO SCH (21:32)
[2016-11-07] MEDS: GABAPENTIN 400 MG CAPSULE PO SCH ×3 (08:09→19:22)
[2016-11-07] MEDS: MELOXICAM 15 MG TABLET PO SCH (08:10)
[2016-11-07] MEDS: RisperiDONE 0.5 MG TABLET PO SCH ×3 (08:10→19:22)
[2016-11-07] MEDS: LORazepam 0.5 MG TABLET PO SCH ×2 (10:07→17:24)
--- NOTE | 2016-11-07 18:10 | Neuropsych Progress Note ---
Generations Subjective Date: 11/07/16 - Sujective/Severity of Illness Medications: Acetaminophen (Tylenol) 650 mg PO Q5H PRN PRN Reason: Discomfort Last Admin: 11/05/16 15:49 Dose: 650 mg Docusate Sodium (Colace) 100 mg PO BID PRN Last Admin: 11/06/16 09:07 Dose: 100 mg Gabapentin (Neurontin) 400 mg PO TID [facility] Last Admin: 11/07/16 15:20 Dose: 400 mg Lorazepam (Ativan) 0.5 mg PO 1100,1730 [facility] Last Admin: 11/07/16 17:24 Dose: 0.5 mg Lorazepam (Ativan Inj) 0.5 mg IM Q6H PRN PRN Reason: Extreme agitation Lorazepam (Ativan) 0.5 mg PO Q6H PRN PRN Reason: Extreme agitation Last Admin: 11/05/16 15:49 Dose: 0.5 mg Magnesium Hydroxide (Mom) 30 ml PO DAILY PRN PRN Reason: Constipation Last Admin: 11/02/16 11:46 Dose: 30 ml Melatonin (Melatonin) 3 mg PO [facility] Last Admin: 11/06/16 21:32 Dose: 3 mg Meloxicam (Mobic) 15 mg PO WB [facility] Last Admin: 11/07/16 08:10 Dose: 15 mg Mirtazapine (Remeron) 15 mg PO [facility] Last Admin: 11/06/16 21:32 Dose: 15 mg Polyethylene Glycol (Miralax) 17 gm PO Q3D [facility] Last Admin: 11/04/16 21:46 Dose: 17 gm Risperidone (Risperdal) 0.5 mg PO TID [facility] Last Admin: 11/07/16 15:20 Dose: 0.5 mg Tizanidine HCl (Zanaflex) 2 mg PO Q8H PRN PRN Reason: Muscle spasm Last Admin: 11/06/16 21:32 Dose: 2 mg Subjective: Pt seen and chart examined. Nursing reports pt sleeps well but during the day the pt is agitated and pacing and her symptoms have not improved. On face to face the pt is pacing and talking to herself. She is only able to tell me her name. She denies pain. She will curse at times. Start Time: 17:30 Stop Time: 17:45 Mental Status Exam Vitals: Last Vital Signs Temp 97 F 11/07/16 08:06 Pulse 104 H 11/07/16 08:06 Resp 16 11/07/16 08:06 BP 119/67 11/07/16 08:06 Pulse Ox 97 11/07/16 08:06 Height: 1.5 m Weight: 46.6 kg - Mental Status Exam Muscle Strength/Tone: Weak (risk of fall) Dressing: Casual Grooming: Disheveled Attitude: Uncooperative, Combative Motor Activity: Pacing, Restless (when awake) Eye Contact: Poor Speech: Other (Loud and dysarthric) Volume: Loud Rhythm: Mumbled, Paucity of Language Orientation: Disoriented to time, Disoriented to place, Disoriented to situation Mood: Irritable, Anxious, Fearful Rate of Thoughts: Delayed Thought Organization: Disorganized, Confused Associations: Illogical Abstract Reasoning: Impaired, concrete Thought Content: Other (frequently regresses, speaks in childlike voice about past trauma) Perception/Psychotic: Perception Normal, Other Language: Naming Impaired Fund of Knowledge: Poor fund of knowledge Memory: Poor-immediate, Poor-recent, Poor-remote Suicidal Ideation: None Homicidal Ideation: None Insight: Impaired Judgement: Impaired Impulse Control: Poor (though improving) - Laboratory Result Diagrams: 11/03/16 07:44 11/03/16 07:44 Assessment and Plan (1) Major neurocognitive disorder Problem details: with behavioral disturbance, due to frontotemporal brain disease Current visit: Yes Status: Chronic (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 Hospital Course: 10/24/16 08:47 Agree with admission 1. Chart reviewed in detail -labs from Sep, 2016 (CBC, CMP, and lipid panel) were fairly unremarkable -Pt was unable to provide any personal history 2. Mild elevations in LFTs -new compared to labs from September -?med related 3. CKD -noted in chart -renal function is stable with creatinine of 0.7 and GFR of 86 4. Psych -unable to examine, doubt we would be able to successfully obtain any imaging or labs -eval pending 10/25/16 16:40 10/25/16- Medical team Tamra is rapidly pacing the halls. This is documented to have been ongoing for some time- Suspect this is the main cause of her significant weight loss. She is also not eating. Add PO supplements 4x/day. She will need to have excess calories to offset the excessive exercise. Attending adjusting meds. Remeron is noted- hope this will help appetite. Mild elevated LFTs- recheck labs in AM. Assess CPK as well due to exercise amounts. Chart reviewed for collateral information. 10/26/16 10:29 Elevated LFTs -AST decreased slightly to 37, and ALT is now in normal range at 51 -CK is elevated at 277 (range is 30-135) -Lipid panel is pending, but in September 2016, Trigs 74, HDL 46, LDL (142H), VLDL 15 , Cardiac risk 4.4, nonHDL 157 Mild protein calorie malnutrition -Encourage oral intake -Dietitian has been consulted Labs reviewed -TSH is normal at 1.41 -Vitamin B12 and folate are pending -RPR: Nonreactive -Urinalysis is negative for UTI Psychiatry notes reviewed -Discontinue Paxil -Increase Remeron dose -Negative timing of Zyprexa to HS -Trial of gabapentin later today 10/29/16 13:39 Labs reviewed -Cholesterol level elevated -Vitamin B12 is low range of normal; folate was normal -recheck LFTs, CPK to ensure they are trending down on 10/31/16 Vital signs overall remain stable. Mild PCM -Target [employer]ter recommended Boost Breeze with every meal. Psychiatry notes reviewed -increase gabapentin to 400mg po tid -goal is to reduce zyprexa which could exacerbate restlessness. -test dose of guanfacine -considering depakote 10/31/16 15:11 CMP obtained this morning, AST was down to 33, but ALT has increased slightly to 56. Alkaline phosphatase is normal at 81. Remainder of chemistries remained stable. Otherwise, medically stable, though need to encourage oral intake. Psychiatry notes reviewed 11/02/16 10:59 *Cognitive deficit/Behavioral dyscontrol- Per psych. Notes reviewed. Still variable behaviors. *Malnutrition- due to severe pacing, minimal rest. I did consult broadcast supervisor-await evaluation. Encourage oral intake. She will need extensive calories to offset activity. Johnnie count. Add supplements. *Elevated LFTs, mild- assess Hep Panel. Repeat CMP in AM for stability *HLD- Avoid statins given risk of Rhabdo with activity level. Mildly elevated CPK. Trending down. 11/07/16 18:10 Will review hospital course thoroughly and consider medication options
[2016-11-07] MEDS: POLYETHYL GLYCOL 3350 17gm PACKET PO SCH (19:19)
[2016-11-07] MEDS: MELATONIN 1 MG TABLET PO SCH (19:20)
[2016-11-07] MEDS: MIRTAZAPINE 15 MG TABLET PO SCH (19:21)
[2016-11-07] MEDS: LORazepam 0.5 MG TABLET PO PRN (23:42)
[2016-11-08] MEDS: GABAPENTIN 400 MG CAPSULE PO SCH ×5 (00:51→21:30)
[2016-11-08] MEDS: RisperiDONE 0.5 MG TABLET PO SCH ×5 (00:51→21:30)
[2016-11-08] MEDS: MELATONIN 1 MG TABLET PO SCH ×2 (00:51→21:12)
[2016-11-08] MEDS: MIRTAZAPINE 15 MG TABLET PO SCH ×2 (00:51→21:13)
[2016-11-08] MEDS: POLYETHYL GLYCOL 3350 17gm PACKET PO SCH (00:51)
[2016-11-08] MEDS: MELOXICAM 15 MG TABLET PO SCH (07:26)
[2016-11-08] MEDS: LORazepam 0.5 MG TABLET PO PRN ×3 (07:27→22:29)
--- NOTE | 2016-11-08 11:39 | Neuropsych Progress Note ---
[facility] Subjective Date: 11/08/16 - Sujective/Severity of Illness Medications: Acetaminophen (Tylenol) 650 mg PO Q5H PRN PRN Reason: Discomfort Last Admin: 11/05/16 15:49 Dose: 650 mg Docusate Sodium (Colace) 100 mg PO BID PRN Last Admin: 11/06/16 09:07 Dose: 100 mg Gabapentin (Neurontin) 400 mg PO TID [facility] Last Admin: 11/08/16 07:27 Dose: 400 mg Lorazepam (Ativan) 0.5 mg PO 1100,1730 [facility] Last Admin: 11/07/16 17:24 Dose: 0.5 mg Lorazepam (Ativan Inj) 0.5 mg IM Q6H PRN PRN Reason: Extreme agitation Lorazepam (Ativan) 0.5 mg PO Q6H PRN PRN Reason: Extreme agitation Last Admin: 11/08/16 07:27 Dose: 0.5 mg Magnesium Hydroxide (Mom) 30 ml PO DAILY PRN PRN Reason: Constipation Last Admin: 11/02/16 11:46 Dose: 30 ml Melatonin (Melatonin) 3 mg PO [facility] Last Admin: 11/08/16 00:51 Dose: Not Given Meloxicam (Mobic) 15 mg PO WB [facility] Last Admin: 11/08/16 07:26 Dose: 15 mg Mirtazapine (Remeron) 15 mg PO [facility] Last Admin: 11/08/16 00:51 Dose: Not Given Polyethylene Glycol (Miralax) 17 gm PO Q3D [facility] Last Admin: 11/08/16 00:51 Dose: Not Given Risperidone (Risperdal) 0.5 mg PO TID [facility] Last Admin: 11/08/16 07:28 Dose: 0.5 mg Tizanidine HCl (Zanaflex) 2 mg PO Q8H PRN PRN Reason: Muscle spasm Last Admin: 11/08/16 07:26 Dose: 2 mg Subjective: Pt seen and chart examined. Nursing reports pt sleeps well but during the day the pt is agitated and pacing and her symptoms have not improved. Pt received Ativan PRN this AM and is now resting quielty in bed. Pt is sleepy and voices no concerns Start Time: 11:30 Stop Time: 11:45 Mental Status Exam Vitals: Last Vital Signs Temp 97.0 F 11/08/16 07:36 Pulse 87 11/08/16 07:36 Resp 22 11/08/16 07:36 BP 119/64 11/08/16 07:36 Pulse Ox 100 11/08/16 07:36 Height: 1.5 m Weight: 46.6 kg - Mental Status Exam Muscle Strength/Tone: Weak (risk of fall) Dressing: Casual Grooming: Disheveled Attitude: Uncooperative, Combative Motor Activity: Pacing, Restless (when awake) Eye Contact: Poor Speech: Other (Loud and dysarthric) Volume: Loud Rhythm: Mumbled, Paucity of Language Orientation: Disoriented to time, Disoriented to place, Disoriented to situation Mood: Irritable, Anxious, Fearful Rate of Thoughts: Delayed Thought Organization: Disorganized, Confused Associations: Illogical Abstract Reasoning: Impaired, concrete Thought Content: Other (frequently regresses, speaks in childlike voice about past trauma) Perception/Psychotic: Perception Normal, Other Language: Naming Impaired Fund of Knowledge: Poor fund of knowledge Memory: Poor-immediate, Poor-recent, Poor-remote Suicidal Ideation: None Homicidal Ideation: None Insight: Impaired Judgement: Impaired Impulse Control: Poor (though improving) - Laboratory Result Diagrams: 11/03/16 07:44 11/03/16 07:44 Assessment and Plan (1) Major neurocognitive disorder Problem details: with behavioral disturbance, due to frontotemporal brain disease Current visit: Yes Status: Chronic (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 Hospital Course: 10/24/16 08:47 Agree with admission 1. Chart reviewed in detail -labs from Sep, 2016 (CBC, CMP, and lipid panel) were fairly unremarkable -Pt was unable to provide any personal history 2. Mild elevations in LFTs -new compared to labs from September -?med related 3. CKD -noted in chart -renal function is stable with creatinine of 0.7 and GFR of 86 4. Psych -unable to examine, doubt we would be able to successfully obtain any imaging or labs -eval pending 10/25/16 16:40 10/25/16- Medical team Tamra is rapidly pacing the halls. This is documented to have been ongoing for some time- Suspect this is the main cause of her significant weight loss. She is also not eating. Add PO supplements 4x/day. She will need to have excess calories to offset the excessive exercise. Attending adjusting meds. Remeron is noted- hope this will help appetite. Mild elevated LFTs- recheck labs in AM. Assess CPK as well due to exercise amounts. Chart reviewed for collateral information. 10/26/16 10:29 Elevated LFTs -AST decreased slightly to 37, and ALT is now in normal range at 51 -CK is elevated at 277 (range is 30-135) -Lipid panel is pending, but in September 2016, Trigs 74, HDL 46, LDL (142H), VLDL 15 , Cardiac risk 4.4, nonHDL 157 Mild protein calorie malnutrition -Encourage oral intake -Dietitian has been consulted Labs reviewed -TSH is normal at 1.41 -Vitamin B12 and folate are pending -RPR: Nonreactive -Urinalysis is negative for UTI Psychiatry notes reviewed -Discontinue Paxil -Increase Remeron dose -Negative timing of Zyprexa to HS -Trial of gabapentin later today 10/29/16 13:39 Labs reviewed -Cholesterol level elevated -Vitamin B12 is low range of normal; folate was normal -recheck LFTs, CPK to ensure they are trending down on 10/31/16 Vital signs overall remain stable. Mild PCM -Home Teaching [employer] Teacher recommended Boost Breeze with every meal. Psychiatry notes reviewed -increase gabapentin to 400mg po tid -goal is to reduce zyprexa which could exacerbate restlessness. -test dose of guanfacine -considering depakote 10/31/16 15:11 CMP obtained this morning, AST was down to 33, but ALT has increased slightly to 56. Alkaline phosphatase is normal at 81. Remainder of chemistries remained stable. Otherwise, medically stable, though need to encourage oral intake. Psychiatry notes reviewed 11/02/16 10:59 *Cognitive deficit/Behavioral dyscontrol- Per psych. Notes reviewed. Still variable behaviors. *Malnutrition- due to severe pacing, minimal rest. I did consult senior ruby developer-await evaluation. Encourage oral intake. She will need extensive calories to offset activity. Johnnie count. Add supplements. *Elevated LFTs, mild- assess Hep Panel. Repeat CMP in AM for stability *HLD- Avoid statins given risk of Rhabdo with activity level. Mildly elevated CPK. Trending down. 11/07/16 18:10 Will review hospital course thoroughly and consider medication options 11/08/16 11:39 Continue current care
[2016-11-08] MEDS: LORazepam 0.5 MG TABLET PO SCH ×2 (12:07→17:21)
[2016-11-08] MEDS: DIVALPROEX SPRINKLE 125 MG CAPSULE PO SCH (21:12)
[2016-11-09] MEDS: LORazepam 0.5 MG TABLET PO PRN (05:15)
[2016-11-09] MEDS: MELOXICAM 15 MG TABLET PO SCH (08:34)
[2016-11-09] MEDS: RisperiDONE 0.5 MG TABLET PO SCH ×3 (08:34→20:18)
[2016-11-09] MEDS: GABAPENTIN 400 MG CAPSULE PO SCH ×3 (08:34→20:18)
[2016-11-09] MEDS: DIVALPROEX SPRINKLE 125 MG CAPSULE PO SCH ×2 (08:34→20:18)
--- NOTE | 2016-11-09 10:18 | Progress Note ---
Subjective: Patient is seen today in follow up. She is very agitated, in room. Yelling, kicking sitter (in 1:1 status). Tray is at bedside. She has not eaten much. Chart is reviewed. She continues to have severe behaviors, not much improvement. When I try and talk to her, she states "I hate you." Chart is reviewed. She does reference pain frequently and also reports abdominal pain. Bowels are moving daily. Objective Vital signs: Temp Pulse Resp BP Pulse Ox 97.8 F 85 16 160/88 H 98 11/09/16 08:00 11/09/16 08:00 11/09/16 08:00 11/09/16 08:00 11/09/16 08:00 Weight: 45.7 kg - Constitutional Present: mild distress, thin, disheveled, combative, agitated. Absent: cooperative - Routine HEENT Exam Head: Present: normocephalic, atraumatic Eye: Present: EOMI, PERRL ENT: Present: mucous membranes dry. Absent: dentition normal - Routine Respiratory Exam Present: CTA bilaterally. Absent: dyspnea, decreased breath sounds, rales, respiratory distress, rhonchi, wheezes - Routine Cardiovascular Exam Present: RRR, S1, S2, no murmur - Routine Abdominal Exam Present: soft, normoactive bowel sounds, non distended - Routine Extremities Exam Present: no edema - Routine Back/Spine/Pelvis Exam Back/Spine: Present: full ROM - Routine Musculoskeletal Exam Musculoskeletal: no clubbing or cyanosis, moving extremities well - Routine Skin Exam Present: dry, warm - Routine Neurological Exam Present: alert, moving all extremities. Absent: oriented X3 - Routine Psychiatric Exam Present: agitated. Absent: normal affect, normal thought process, cooperative, good insight, good judgment Results - Labs CBC & Chem 7: 11/03/16 07:44 11/03/16 07:44 Assessment and Plan (1) Dementia with behavioral problem Current visit: Yes Status: Acute (2) Mixed hyperlipidemia Current visit: Yes Status: Acute (3) Chronic kidney disease Current visit: Yes Status: Acute (4) Elevated LFTs Current visit: Yes Status: Acute (5) Major neurocognitive disorder Problem details: with behavioral disturbance, due to frontotemporal brain disease Current visit: Yes Status: Chronic (6) Frontotemporal brain disease Current visit: Yes Status: Chronic (7) Weight loss, non-intentional Current visit: Yes Status: Acute (8) Protein-calorie malnutrition, mild Current visit: Yes Status: Acute (9) Pain Current visit: Yes Status: Chronic DVT Prophylaxis: other (N/A) GI Prophylaxis: other (Add daily PPI due to c/o abdominal pain) Resuscitation Status: Do Not Resuscitate Assessment and Plan: 11/09/16- *Severe cognitive/behavioral changes- Behaviors continue severe. Will add pain control to see if that will help. Need to monitor for behavioral changes on Tramadol. If no improvement, could consider adding Fentanyl patch. Stop Zanaflex. Consider Seroquel? Defer to attending. If we can get her controlled, obtain imaging. *Elevated LFTs/Weight loss- Assess CEA to r/o occult gastric malignancy. Will hold off on imaging given severe agitation. Repeat CMP in AM. Add PPI due to c/o abdominal pain. No statin given LFTs. Monitor with addition of low-dose APAP with Tramadol. *c/o pain- Add Ultracet TID, low dose. Monitor behavior, LFTs Stop Xanaflex as this can cause hallucinations. If pain worsens, consider adding Baclofen for spasticity. *Malnutrition/Cachexia- Likely due to severe agitation, pacing, etc. Continue staff support with nutrition, PO intake. Remains a difficult case. Repeat labs in AM. We will follow with you. Sepsis Assessment - Evaluation Sepsis screening result: No Definite Risk Hospital Course Summary Disclaimer: The visit summary below is not to be considered part of the above Progress Note. Hospital Course: 10/24/16 08:47 Agree with admission 1. Chart reviewed in detail -labs from Sep, 2016 (CBC, CMP, and lipid panel) were fairly unremarkable -Pt was unable to provide any personal history 2. Mild elevations in LFTs -new compared to labs from September -?med related 3. CKD -noted in chart -renal function is stable with creatinine of 0.7 and GFR of 86 4. Psych -unable to examine, doubt we would be able to successfully obtain any imaging or labs -eval pending 10/25/16 16:40 10/25/16- Medical team Tamra is rapidly pacing the halls. This is documented to have been ongoing for some time- Suspect this is the main cause of her significant weight loss. She is also not eating. Add PO supplements 4x/day. She will need to have excess calories to offset the excessive exercise. Attending adjusting meds. Remeron is noted- hope this will help appetite. Mild elevated LFTs- recheck labs in AM. Assess CPK as well due to exercise amounts. Chart reviewed for collateral information. 10/26/16 10:29 Elevated LFTs -AST decreased slightly to 37, and ALT is now in normal range at 51 -CK is elevated at 277 (range is 30-135) -Lipid panel is pending, but in September 2016, Trigs 74, HDL 46, LDL (142H), VLDL 15 , Cardiac risk 4.4, nonHDL 157 Mild protein calorie malnutrition -Encourage oral intake -Dietitian has been consulted Labs reviewed -TSH is normal at 1.41 -Vitamin B12 and folate are pending -RPR: Nonreactive -Urinalysis is negative for UTI Psychiatry notes reviewed -Discontinue Paxil -Increase Remeron dose -Negative timing of Zyprexa to HS -Trial of gabapentin later today 10/29/16 13:39 Labs reviewed -Cholesterol level elevated -Vitamin B12 is low range of normal; folate was normal -recheck LFTs, CPK to ensure they are trending down on 10/31/16 Vital signs overall remain stable. Mild PCM -Gas Regulator Repairer Helper recommended Boost Breeze with every meal. Psychiatry notes reviewed -increase gabapentin to 400mg po tid -goal is to reduce zyprexa which could exacerbate restlessness. -test dose of guanfacine -considering depakote 10/31/16 15:11 CMP obtained this morning, AST was down to 33, but ALT has increased slightly to 56. Alkaline phosphatase is normal at 81. Remainder of chemistries remained stable. Otherwise, medically stable, though need to encourage oral intake. Psychiatry notes reviewed 11/02/16 10:59 *Cognitive deficit/Behavioral dyscontrol- Per psych. Notes reviewed. Still variable behaviors. *Malnutrition- due to severe pacing, minimal rest. I did consult break out worker-await evaluation. Encourage oral intake. She will need extensive calories to offset activity. Johnnie count. Add supplements. *Elevated LFTs, mild- assess Hep Panel. Repeat CMP in AM for stability *HLD- Avoid statins given risk of Rhabdo with activity level. Mildly elevated CPK. Trending down. 11/07/16 18:10 Will review hospital course thoroughly and consider medication options 11/08/16 11:39 Continue current care
[2016-11-09] MEDS: LORazepam 0.5 MG TABLET PO SCH ×2 (10:51→18:03)
[2016-11-09] MEDS: TRAMADOL/APAP 37.5 MG/325 MG TABLET PO SCH ×3 (11:16→20:19)
--- NOTE | 2016-11-09 12:47 | Neuropsych Progress Note ---
[facility] Subjective Date: 11/09/16 - Sujective/Severity of Illness Medications: Acetaminophen (Tylenol) 650 mg PO Q5H PRN PRN Reason: Discomfort Last Admin: 11/05/16 15:49 Dose: 650 mg Divalproex Sodium (Depakote Sprinkle) 250 mg PO BID [facility] Last Admin: 11/09/16 08:34 Dose: 250 mg Docusate Sodium (Colace) 100 mg PO BID PRN Last Admin: 11/06/16 09:07 Dose: 100 mg Gabapentin (Neurontin) 400 mg PO TID [facility] Last Admin: 11/09/16 08:34 Dose: 400 mg Lorazepam (Ativan) 0.5 mg PO 1100,1730 [facility] Last Admin: 11/09/16 10:51 Dose: 0.5 mg Lorazepam (Ativan Inj) 0.5 mg IM Q6H PRN PRN Reason: Extreme agitation Lorazepam (Ativan) 0.5 mg PO Q6H PRN PRN Reason: Extreme agitation Last Admin: 11/09/16 05:15 Dose: 0.5 mg Magnesium Hydroxide (Mom) 30 ml PO DAILY PRN PRN Reason: Constipation Last Admin: 11/02/16 11:46 Dose: 30 ml Melatonin (Melatonin) 3 mg PO [facility] Last Admin: 11/08/16 21:12 Dose: 3 mg Meloxicam (Mobic) 15 mg PO WB [facility] Last Admin: 11/09/16 08:34 Dose: 15 mg Mirtazapine (Remeron) 15 mg PO [facility] Last Admin: 11/08/16 21:13 Dose: 15 mg Omeprazole (Prilosec) 20 mg PO ACB [facility] Polyethylene Glycol (Miralax) 17 gm PO Q3D [facility] Last Admin: 11/08/16 00:51 Dose: Not Given Risperidone (Risperdal) 0.5 mg PO TID [facility] Last Admin: 11/09/16 08:34 Dose: 0.5 mg Tramadol/Acetaminophen (Ultracet) 1 tab PO TID [facility] Last Admin: 11/09/16 11:16 Dose: 1 tab Subjective: Pt seen and chart examined. Nursing reports pt sleeps well but during the day the pt is agitated and pacing and her symptoms have not improved. Pt will pace for around an hour and then lie down for about an hour and then is up again. On face to face the pt will say some things very coherently but then will begin to mumble again. Pt is not able to voice any concerns about her symptoms or med side effects Start Time: 11:45 Stop Time: 12:00 Mental Status Exam Vitals: Last Vital Signs Temp 97.8 F 11/09/16 08:00 Pulse 85 11/09/16 08:00 Resp 16 11/09/16 08:00 BP 160/88 H 11/09/16 08:00 Pulse Ox 98 11/09/16 08:00 Height: 1.5 m Weight: 45.7 kg - Mental Status Exam Muscle Strength/Tone: Weak (risk of fall) Dressing: Casual Grooming: Disheveled Attitude: Uncooperative, Combative Motor Activity: Pacing, Restless (when awake) Eye Contact: Poor Speech: Other (Loud and dysarthric) Volume: Loud Rhythm: Mumbled, Paucity of Language Orientation: Disoriented to time, Disoriented to place, Disoriented to situation Mood: Irritable, Anxious, Fearful Rate of Thoughts: Delayed Thought Organization: Disorganized, Confused Associations: Illogical Abstract Reasoning: Impaired, concrete Thought Content: Other (frequently regresses, speaks in childlike voice about past trauma) Perception/Psychotic: Perception Normal, Other Language: Naming Impaired Fund of Knowledge: Poor fund of knowledge Memory: Poor-immediate, Poor-recent, Poor-remote Suicidal Ideation: None Homicidal Ideation: None Insight: Impaired Judgement: Impaired Impulse Control: Poor (though improving) - Laboratory Result Diagrams: 11/03/16 07:44 11/03/16 07:44 Laboratory Results - last 24 hr 11/05/16 05:21 [id number] [id number] Assessment and Plan (1) Major neurocognitive disorder Problem details: with behavioral disturbance, due to frontotemporal brain disease Current visit: Yes Status: Chronic (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 Hospital Course: 10/24/16 08:47 Agree with admission 1. Chart reviewed in detail -labs from Sep, 2016 (CBC, CMP, and lipid panel) were fairly unremarkable -Pt was unable to provide any personal history 2. Mild elevations in LFTs -new compared to labs from September -?med related 3. CKD -noted in chart -renal function is stable with creatinine of 0.7 and GFR of 86 4. Psych -unable to examine, doubt we would be able to successfully obtain any imaging or labs -eval pending 10/25/16 16:40 10/25/16- Medical team Tamra is rapidly pacing the halls. This is documented to have been ongoing for some time- Suspect this is the main cause of her significant weight loss. She is also not eating. Add PO supplements 4x/day. She will need to have excess calories to offset the excessive exercise. Attending adjusting meds. Remeron is noted- hope this will help appetite. Mild elevated LFTs- recheck labs in AM. Assess CPK as well due to exercise amounts. Chart reviewed for collateral information. 10/26/16 10:29 Elevated LFTs -AST decreased slightly to 37, and ALT is now in normal range at 51 -CK is elevated at 277 (range is 30-135) -Lipid panel is pending, but in September 2016, Trigs 74, HDL 46, LDL (142H), VLDL 15 , Cardiac risk 4.4, nonHDL 157 Mild protein calorie malnutrition -Encourage oral intake -Dietitian has been consulted Labs reviewed -TSH is normal at 1.41 -Vitamin B12 and folate are pending -RPR: Nonreactive -Urinalysis is negative for UTI Psychiatry notes reviewed -Discontinue Paxil -Increase Remeron dose -Negative timing of Zyprexa to HS -Trial of gabapentin later today 10/29/16 13:39 Labs reviewed -Cholesterol level elevated -Vitamin B12 is low range of normal; folate was normal -recheck LFTs, CPK to ensure they are trending down on 10/31/16 Vital signs overall remain stable. Mild PCM -[employer] Teacher recommended Boost Breeze with every meal. Psychiatry notes reviewed -increase gabapentin to 400mg po tid -goal is to reduce zyprexa which could exacerbate restlessness. -test dose of guanfacine -considering depakote 10/31/16 15:11 CMP obtained this morning, AST was down to 33, but ALT has increased slightly to 56. Alkaline phosphatase is normal at 81. Remainder of chemistries remained stable. Otherwise, medically stable, though need to encourage oral intake. Psychiatry notes reviewed 11/02/16 10:59 *Cognitive deficit/Behavioral dyscontrol- Per psych. Notes reviewed. Still variable behaviors. *Malnutrition- due to severe pacing, minimal rest. I did consult auger machine offbearer-await evaluation. Encourage oral intake. She will need extensive calories to offset activity. Johnnie count. Add supplements. *Elevated LFTs, mild- assess Hep Panel. Repeat CMP in AM for stability *HLD- Avoid statins given risk of Rhabdo with activity level. Mildly elevated CPK. Trending down. 11/07/16 18:10 Will review hospital course thoroughly and consider medication options 11/08/16 11:39 Continue current care 11/09/16 12:46 Continue current care
[2016-11-09] MEDS: MIRTAZAPINE 15 MG TABLET PO SCH (20:19)
[2016-11-09] MEDS: POLYETHYL GLYCOL 3350 17gm PACKET PO SCH (20:29)
[2016-11-10] MEDS: MELATONIN 1 MG TABLET PO SCH ×2 (02:42→19:26)
[2016-11-10] MEDS: MIRTAZAPINE 15 MG TABLET PO SCH (02:42)
[2016-11-10] MEDS: OMEPRAZOLE 20 MG CAPSULE PO SCH (08:18)
[2016-11-10] MEDS: MELOXICAM 15 MG TABLET PO SCH (08:18)
[2016-11-10] MEDS: DIVALPROEX SPRINKLE 125 MG CAPSULE PO SCH ×3 (08:18→21:58)
[2016-11-10] MEDS: RisperiDONE 0.5 MG TABLET PO SCH (08:19)
[2016-11-10] MEDS: GABAPENTIN 400 MG CAPSULE PO SCH ×4 (08:19→21:58)
[2016-11-10] MEDS: TRAMADOL/APAP 37.5 MG/325 MG TABLET PO SCH ×4 (08:19→21:58)
--- NOTE | 2016-11-10 11:26 | Neuropsych Progress Note ---
Generations Subjective Date: 11/10/16 - Sujective/Severity of Illness Medications: Acetaminophen (Tylenol) 650 mg PO Q5H PRN PRN Reason: Discomfort Last Admin: 11/05/16 15:49 Dose: 650 mg Divalproex Sodium (Depakote Sprinkle) 250 mg PO BID [facility] Last Admin: 11/10/16 08:18 Dose: 250 mg Docusate Sodium (Colace) 100 mg PO BID PRN Last Admin: 11/06/16 09:07 Dose: 100 mg Gabapentin (Neurontin) 400 mg PO TID [facility] Last Admin: 11/10/16 08:19 Dose: 400 mg Lorazepam (Ativan) 0.5 mg PO 1100,1730 [facility] Last Admin: 11/09/16 18:03 Dose: 0.5 mg Lorazepam (Ativan Inj) 0.5 mg IM Q6H PRN PRN Reason: Extreme agitation Lorazepam (Ativan) 0.5 mg PO Q6H PRN PRN Reason: Extreme agitation Last Admin: 11/09/16 05:15 Dose: 0.5 mg Magnesium Hydroxide (Mom) 30 ml PO DAILY PRN PRN Reason: Constipation Last Admin: 11/02/16 11:46 Dose: 30 ml Melatonin (Melatonin) 3 mg PO HS [facility] Last Admin: 11/10/16 02:42 Dose: Not Given Meloxicam (Mobic) 15 mg PO WB [facility] Last Admin: 11/10/16 08:18 Dose: 15 mg Omeprazole (Prilosec) 20 mg PO ACB [facility] Last Admin: 11/10/16 08:18 Dose: 20 mg Polyethylene Glycol (Miralax) 17 gm PO Q3D [facility] Last Admin: 11/09/16 20:29 Dose: 17 gm Tramadol/Acetaminophen (Ultracet) 1 tab PO TID [facility] Last Admin: 11/10/16 08:19 Dose: 1 tab Subjective: Patient is a 56 year-old, female who presented from [place] with agitation and impulsiveness. 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 When awake, patient is usually confused, loud, disorganized with flight of ideas and tangential thought process. Patient requires constant observation to prevent her from hurting herself and other clients. She is unable to control her impulse and appears to constantly pace around the unit unable to sit still. She was said to have slept for 9.5 hours last night and was seen to be sleeping this morning too. She is currently on Risperidone 0.5mg TID, Lorazepam 0.5mg BID , Mirtazapine 15mg po q hs, Gabapentin 400mg TID and over the weekend Depakote 250mg BID was added to her medication regimen. There was an initial concern about Dick's disease but her Ceruloplasmin level was noted to be normal today. Her AST and ALT continues to elevated with negative Hepatitis panel. Start Time: 10:10 Stop Time: 10:25 Mental Status Exam Vitals: Last Vital Signs Temp 97.2 F 11/09/16 23:43 Pulse 89 11/09/16 23:43 Resp 18 11/09/16 23:43 BP 123/66 11/09/16 23:43 Pulse Ox 99 11/09/16 23:43 Height: 1.5 m Weight: 47.2 kg - Mental Status Exam Muscle Strength/Tone: Weak (risk of fall) Dressing: Casual Grooming: Disheveled Attitude: Uncooperative, Combative Motor Activity: Pacing, Restless (when awake) Eye Contact: Poor Speech: Other (Loud and dysarthric) Volume: Loud Rhythm: Mumbled, Paucity of Language Orientation: Disoriented to time, Disoriented to place, Disoriented to situation Mood: Irritable, Anxious, Fearful Rate of Thoughts: Delayed Thought Organization: Disorganized, Confused Associations: Illogical Abstract Reasoning: Impaired, concrete Thought Content: Other (frequently regresses, speaks in childlike voice about past trauma) Perception/Psychotic: Perception Normal, Other Language: Naming Impaired Fund of Knowledge: Poor fund of knowledge Memory: Poor-immediate, Poor-recent, Poor-remote Suicidal Ideation: None Homicidal Ideation: None Insight: Impaired Judgement: Impaired Impulse Control: Poor (though improving) - Laboratory Result Diagrams: 11/10/16 06:12 11/10/16 06:12 Laboratory Results - last 24 hr 11/10/16 11/10/16 11/10/16 06:12 06:12 06:12 WBC 8.2 RBC 4.04 Hgb 12.9 Hct 39.8 MCV 98.5 MCH 31.9 MCHC 32.4 RDW Std Deviation 44.2 Plt Count 311 MPV 9.3 L Immature Gran % (Auto) 0.1 Neut % (Auto) 51.6 Lymph % (Auto) 33.7 [place] % (Auto) 8.6 Eos % (Auto) 4.8 H Baso % (Auto) 1.2 Neut # 4.2 Lymph # 2.8 [place] # 0.7 Eos # 0.4 Baso # 0.1 Abs Immat Gran (auto) 0.01 Turbidity < 20 Sodium 141 Potassium 4.8 Chloride 102 Carbon Dioxide 30 Anion Gap 9 BUN 17.0 Creatinine 0.6 L GFR Calculation 103 BUN/Creatinine Ratio 28 H Glucose 79 Calculated Osmolality 272 Calcium 9.1 Magnesium 2.4 H Total Bilirubin 0.40 Icterus Index < 2 AST 47 H ALT 97 H Alkaline Phosphatase 97 Total Protein 5.9 L Albumin 3.7 Globulin 2.2 L Albumin/Globulin Ratio 1.7 Carcinoembryonic Ag 0.64 Specimen Hemolysis < 15 Assessment and Plan (1) 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 DC Risperidone, 2. DC Mirtazapine. 3. will attempt to simplify patient's medication. Hospital Course Summary Disclaimer: The visit summary below is not to be considered part of the above Progress Note. Hospital Course: 10/24/16 08:47 Agree with admission 1. Chart reviewed in detail -labs from Sep, 2016 (CBC, CMP, and lipid panel) were fairly unremarkable -Pt was unable to provide any personal history 2. Mild elevations in LFTs -new compared to labs from September -?med related 3. CKD -noted in chart -renal function is stable with creatinine of 0.7 and GFR of 86 4. Psych -unable to examine, doubt we would be able to successfully obtain any imaging or labs -eval pending 10/25/16 16:40 10/25/16- Medical team Tamra is rapidly pacing the halls. This is documented to have been ongoing for some time- Suspect this is the main cause of her significant weight loss. She is also not eating. Add PO supplements 4x/day. She will need to have excess calories to offset the excessive exercise. Attending adjusting meds. Remeron is noted- hope this will help appetite. Mild elevated LFTs- recheck labs in AM. Assess CPK as well due to exercise amounts. Chart reviewed for collateral information. 10/26/16 10:29 Elevated LFTs -AST decreased slightly to 37, and ALT is now in normal range at 51 -CK is elevated at 277 (range is 30-135) -Lipid panel is pending, but in September 2016, Trigs 74, HDL 46, LDL (142H), VLDL 15 , Cardiac risk 4.4, nonHDL 157 Mild protein calorie malnutrition -Encourage oral intake -Dietitian has been consulted Labs reviewed -TSH is normal at 1.41 -Vitamin B12 and folate are pending -RPR: Nonreactive -Urinalysis is negative for UTI Psychiatry notes reviewed -Discontinue Paxil -Increase Remeron dose -Negative timing of Zyprexa to HS -Trial of gabapentin later today 10/29/16 13:39 Labs reviewed -Cholesterol level elevated -Vitamin B12 is low range of normal; folate was normal -recheck LFTs, CPK to ensure they are trending down on 10/31/16 Vital signs overall remain stable. Mild PCM -Silverware Assembler recommended Boost Breeze with every meal. Psychiatry notes reviewed -increase gabapentin to 400mg po tid -goal is to reduce zyprexa which could exacerbate restlessness. -test dose of guanfacine -considering depakote 10/31/16 15:11 CMP obtained this morning, AST was down to 33, but ALT has increased slightly to 56. Alkaline phosphatase is normal at 81. Remainder of chemistries remained stable. Otherwise, medically stable, though need to encourage oral intake. Psychiatry notes reviewed 11/02/16 10:59 *Cognitive deficit/Behavioral dyscontrol- Per psych. Notes reviewed. Still variable behaviors. *Malnutrition- due to severe pacing, minimal rest. I did consult nude model-await evaluation. Encourage oral intake. She will need extensive calories to offset activity. Johnnie count. Add supplements. *Elevated LFTs, mild- assess Hep Panel. Repeat CMP in AM for stability *HLD- Avoid statins given risk of Rhabdo with activity level. Mildly elevated CPK. Trending down. 11/07/16 18:10 Will review hospital course thoroughly and consider medication options 11/08/16 11:39 Continue current care 11/09/16 12:46 Continue current care
[2016-11-10] MEDS: LORazepam 0.5 MG TABLET PO SCH ×2 (12:02→17:28)
[2016-11-10] MEDS: POLYETHYL GLYCOL 3350 17gm PACKET PO SCH (19:28)
[2016-11-11] MEDS: MELATONIN 1 MG TABLET PO SCH ×2 (02:56→21:36)
[2016-11-11] MEDS: POLYETHYL GLYCOL 3350 17gm PACKET PO SCH (02:57)
[2016-11-11] MEDS: OMEPRAZOLE 20 MG CAPSULE PO SCH (06:35)
[2016-11-11] MEDS: DIVALPROEX SPRINKLE 125 MG CAPSULE PO SCH ×3 (07:44→20:07)
[2016-11-11] MEDS: MELOXICAM 15 MG TABLET PO SCH (07:44)
[2016-11-11] MEDS: GABAPENTIN 400 MG CAPSULE PO SCH ×4 (07:45→20:08)
[2016-11-11] MEDS: TRAMADOL/APAP 37.5 MG/325 MG TABLET PO SCH ×4 (07:45→20:15)
[2016-11-11] MEDS: LORazepam 0.5 MG TABLET PO SCH ×2 (12:37→16:33)
--- NOTE | 2016-11-11 19:28 | Neuropsych Progress Note ---
[facility] Subjective Date: 11/11/16 - Sujective/Severity of Illness Medications: Acetaminophen (Tylenol) 650 mg PO Q5H PRN PRN Reason: Discomfort Last Admin: 11/05/16 15:49 Dose: 650 mg Divalproex Sodium (Depakote Sprinkle) 250 mg PO BID [facility] Last Admin: 11/11/16 08:43 Dose: Not Given Docusate Sodium (Colace) 100 mg PO BID PRN Last Admin: 11/06/16 09:07 Dose: 100 mg Gabapentin (Neurontin) 400 mg PO TID [facility] Last Admin: 11/11/16 16:33 Dose: 400 mg Lorazepam (Ativan) 0.5 mg PO 1100,1730 [facility] Last Admin: 11/11/16 16:33 Dose: 0.5 mg Lorazepam (Ativan Inj) 0.5 mg IM Q6H PRN PRN Reason: Extreme agitation Lorazepam (Ativan) 0.5 mg PO Q6H PRN PRN Reason: Extreme agitation Last Admin: 11/09/16 05:15 Dose: 0.5 mg Magnesium Hydroxide (Mom) 30 ml PO DAILY PRN PRN Reason: Constipation Last Admin: 11/02/16 11:46 Dose: 30 ml Melatonin (Melatonin) 3 mg PO HS [facility] Last Admin: 11/11/16 02:56 Dose: Not Given Meloxicam (Mobic) 15 mg PO WB [facility] Last Admin: 11/11/16 07:44 Dose: 15 mg Omeprazole (Prilosec) 20 mg PO ACB [facility] Last Admin: 11/11/16 06:35 Dose: 20 mg Polyethylene Glycol (Miralax) 17 gm PO Q3D [facility] Last Admin: 11/11/16 02:57 Dose: 17 gm Tramadol/Acetaminophen (Ultracet) 1 tab PO TID [facility] Last Admin: 11/11/16 16:33 Dose: 1 tab Subjective: Patient is a 56 year-old, female who presented from [place] with agitation and impulsiveness. 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 When awake, patient is usually confused, loud, disorganized with flight of ideas and tangential thought process. Patient requires constant observation to prevent her from hurting herself and other clients. She is unable to control her impulse and appears to constantly pace around the unit unable to sit still. She was said to have slept for 9.0 hours last night and was seen to be sleeping this morning too. She is currently on Lorazepam 0.5mg BID, Gabapentin 400mg TID and over the weekend Depakote 250mg BID was added to her medication regimen. Patient's ALT and AST appears to be trending upward. The plan will be to observe patient's ALT and AST over the next few days. PRN: None. Start Time: 15:20 Stop Time: 15:40 Mental Status Exam Vitals: Last Vital Signs Temp 97.1 F 11/11/16 16:00 Pulse 85 11/11/16 16:00 Resp 16 11/11/16 16:00 BP 122/71 11/11/16 16:00 Pulse Ox 96 11/11/16 16:00 Height: 1.5 m Weight: 47.2 kg - Mental Status Exam Muscle Strength/Tone: Weak (risk of fall) Dressing: Casual Grooming: Disheveled Attitude: Uncooperative, Suspicious, Combative Motor Activity: Agitation, Pacing, Restless (when awake) Eye Contact: Poor Speech: Other (Loud and dysarthric) Volume: Loud Rhythm: Mumbled, Paucity of Language Orientation: Disoriented to time, Disoriented to place, Disoriented to situation Mood: Irritable, Anxious, Fearful Rate of Thoughts: Delayed Thought Organization: Disorganized, Confused Associations: Illogical Abstract Reasoning: Impaired, concrete Thought Content: Other (frequently regresses, speaks in childlike voice about past trauma) Perception/Psychotic: Perception Normal, Other Language: Naming Impaired Fund of Knowledge: Poor fund of knowledge Memory: Poor-immediate, Poor-recent, Poor-remote Suicidal Ideation: None Homicidal Ideation: None Insight: Impaired Judgement: Impaired Impulse Control: Poor (though improving) - Laboratory Result Diagrams: 11/10/16 06:12 11/10/16 06:12 Laboratory Results - last 24 hr 11/11/16 05:10 AST 67 H ALT 111 H Assessment and Plan (1) Major neurocognitive disorder Problem details: with behavioral disturbance, due to frontotemporal brain disease Current visit: Yes Status: Chronic (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 Hospital Course: 10/24/16 08:47 Agree with admission 1. Chart reviewed in detail -labs from Sep, 2016 (CBC, CMP, and lipid panel) were fairly unremarkable -Pt was unable to provide any personal history 2. Mild elevations in LFTs -new compared to labs from September -?med related 3. CKD -noted in chart -renal function is stable with creatinine of 0.7 and GFR of 86 4. Psych -unable to examine, doubt we would be able to successfully obtain any imaging or labs -eval pending 10/25/16 16:40 10/25/16- Medical team Tamra is rapidly pacing the halls. This is documented to have been ongoing for some time- Suspect this is the main cause of her significant weight loss. She is also not eating. Add PO supplements 4x/day. She will need to have excess calories to offset the excessive exercise. Attending adjusting meds. Remeron is noted- hope this will help appetite. Mild elevated LFTs- recheck labs in AM. Assess CPK as well due to exercise amounts. Chart reviewed for collateral information. 10/26/16 10:29 Elevated LFTs -AST decreased slightly to 37, and ALT is now in normal range at 51 -CK is elevated at 277 (range is 30-135) -Lipid panel is pending, but in September 2016, Trigs 74, HDL 46, LDL (142H), VLDL 15 , Cardiac risk 4.4, nonHDL 157 Mild protein calorie malnutrition -Encourage oral intake -Dietitian has been consulted Labs reviewed -TSH is normal at 1.41 -Vitamin B12 and folate are pending -RPR: Nonreactive -Urinalysis is negative for UTI Psychiatry notes reviewed -Discontinue Paxil -Increase Remeron dose -Negative timing of Zyprexa to HS -Trial of gabapentin later today 10/29/16 13:39 Labs reviewed -Cholesterol level elevated -Vitamin B12 is low range of normal; folate was normal -recheck LFTs, CPK to ensure they are trending down on 10/31/16 Vital signs overall remain stable. Mild PCM -Assembly Lead Person recommended Boost Breeze with every meal. Psychiatry notes reviewed -increase gabapentin to 400mg po tid -goal is to reduce zyprexa which could exacerbate restlessness. -test dose of guanfacine -considering depakote 10/31/16 15:11 CMP obtained this morning, AST was down to 33, but ALT has increased slightly to 56. Alkaline phosphatase is normal at 81. Remainder of chemistries remained stable. Otherwise, medically stable, though need to encourage oral intake. Psychiatry notes reviewed 11/02/16 10:59 *Cognitive deficit/Behavioral dyscontrol- Per psych. Notes reviewed. Still variable behaviors. *Malnutrition- due to severe pacing, minimal rest. I did consult turn operator-await evaluation. Encourage oral intake. She will need extensive calories to offset activity. Johnnie count. Add supplements. *Elevated LFTs, mild- assess Hep Panel. Repeat CMP in AM for stability *HLD- Avoid statins given risk of Rhabdo with activity level. Mildly elevated CPK. Trending down. 11/07/16 18:10 Will review hospital course thoroughly and consider medication options 11/08/16 11:39 Continue current care 11/09/16 12:46 Continue current care
[2016-11-11] MEDS ORDERED: LORazepam INTENSOL 1mg/0.5ml ORAL LIQUID SL PRN (21:19)
[2016-11-11] MEDS: LORazepam INTENSOL 1mg/0.5ml ORAL LIQUID SL PRN (21:27)
[2016-11-12] MEDS: OMEPRAZOLE 20 MG CAPSULE PO SCH (11:00)
[2016-11-12] MEDS: MELOXICAM 15 MG TABLET PO SCH (11:00)
[2016-11-12] MEDS: GABAPENTIN 400 MG CAPSULE PO SCH ×2 (11:01→14:01)
[2016-11-12] MEDS: LORazepam 0.5 MG TABLET PO SCH ×2 (11:01→19:01)
[2016-11-12] MEDS: TRAMADOL/APAP 37.5 MG/325 MG TABLET PO SCH ×2 (11:01→14:01)
[2016-11-12] MEDS: DIVALPROEX SPRINKLE 125 MG CAPSULE PO SCH (11:01)
--- NOTE | 2016-11-12 11:30 | Neuropsych Progress Note ---
[facility] Subjective Date: 11/12/16 - Sujective/Severity of Illness Medications: Acetaminophen (Tylenol) 650 mg PO Q5H PRN PRN Reason: Discomfort Last Admin: 11/05/16 15:49 Dose: 650 mg Divalproex Sodium (Depakote Sprinkle) 250 mg PO BID [facility] Last Admin: 11/12/16 11:01 Dose: 250 mg Docusate Sodium (Colace) 100 mg PO BID PRN Last Admin: 11/06/16 09:07 Dose: 100 mg Gabapentin (Neurontin) 400 mg PO TID [facility] Last Admin: 11/12/16 11:01 Dose: 400 mg Lorazepam (Ativan) 0.5 mg PO 1100,1730 [facility] Last Admin: 11/12/16 11:01 Dose: 0.5 mg Lorazepam (Ativan Intensol) 0.5 mg SL Q6HR PRN PRN Reason: Agitation Last Admin: 11/11/16 21:27 Dose: 0.5 mg Lorazepam (Ativan Inj) 0.5 mg IM Q6H PRN PRN Reason: Extreme agitation Lorazepam (Ativan) 0.5 mg PO Q6H PRN PRN Reason: Extreme agitation Last Admin: 11/09/16 05:15 Dose: 0.5 mg Magnesium Hydroxide (Mom) 30 ml PO DAILY PRN PRN Reason: Constipation Last Admin: 11/02/16 11:46 Dose: 30 ml Melatonin (Melatonin) 3 mg PO HS [facility] Last Admin: 11/11/16 21:36 Dose: 3 mg Meloxicam (Mobic) 15 mg PO WB [facility] Last Admin: 11/12/16 11:00 Dose: 15 mg Omeprazole (Prilosec) 20 mg PO ACB [facility] Last Admin: 11/12/16 11:00 Dose: 20 mg Polyethylene Glycol (Miralax) 17 gm PO Q3D [facility] Last Admin: 11/11/16 02:57 Dose: 17 gm Tramadol/Acetaminophen (Ultracet) 1 tab PO TID [facility] Last Admin: 11/12/16 11:01 Dose: 1 tab Subjective: Patient is a 56 year-old, female who presented from [place] with agitation and impulsiveness. 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 Since admission, patient has had trial of Risperidone and Olanzapine. When awake, patient is usually confused, loud, disorganized with flight of ideas and tangential thought process. Patient requires constant observation to prevent her from hurting herself and other clients. She is unable to control her impulse and appears to constantly pace around the unit unable to sit still, screaming on top her lung. Patient appears to be responding to internal stimuli and paranoid. ALT and AST appears to be trending upward 111 and 67 respectively yesterday PM.She is currently on Lorazepam 0.5mg BID, Gabapentin 400mg TID and over the weekend Depakote 250mg BID was added to her medication regimen. The plan today will be discontinue Depakote and try Carbamazepine today. PRN: Lorazepam 0.5mg yesterday at about 2100 Start Time: 11:00 Stop Time: 11:30 Mental Status Exam Vitals: Last Vital Signs Temp 97.7 F 11/11/16 22:12 Pulse 82 11/11/16 22:12 Resp 18 11/11/16 22:12 BP 110/60 11/11/16 22:12 Pulse Ox 100 11/11/16 22:12 Height: 1.5 m Weight: 47.2 kg - Mental Status Exam Muscle Strength/Tone: Weak (risk of fall) Dressing: Casual Grooming: Disheveled Attitude: Uncooperative, Suspicious, Combative Motor Activity: Agitation, Pacing, Restless (when awake) Eye Contact: Poor Speech: Other (Loud and dysarthric) Volume: Loud Rhythm: Mumbled, Paucity of Language Orientation: Disoriented to time, Disoriented to place, Disoriented to situation Mood: Irritable, Anxious, Fearful Rate of Thoughts: Delayed Thought Organization: Disorganized, Confused Associations: Illogical Abstract Reasoning: Impaired, concrete Thought Content: Other (frequently regresses, speaks in childlike voice about past trauma) Perception/Psychotic: Perception Normal, Other Language: Naming Impaired Fund of Knowledge: Poor fund of knowledge Memory: Poor-immediate, Poor-recent, Poor-remote Suicidal Ideation: None Homicidal Ideation: None Insight: Impaired Judgement: Impaired Impulse Control: Poor (though improving) - Laboratory Result Diagrams: 11/10/16 06:12 11/10/16 06:12 Assessment and Plan (1) Major neurocognitive disorder Problem details: with behavioral disturbance, due to frontotemporal brain disease Current visit: Yes Status: Chronic (2) 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 Start trial of Carbamazapine 200mg BID and will consider another anti-psychotic next week. -Obtain ALT/AST every 2 days Hospital Course Summary Disclaimer: The visit summary below is not to be considered part of the above Progress Note. Hospital Course: 10/24/16 08:47 Agree with admission 1. Chart reviewed in detail -labs from Sep, 2016 (CBC, CMP, and lipid panel) were fairly unremarkable -Pt was unable to provide any personal history 2. Mild elevations in LFTs -new compared to labs from September -?med related 3. CKD -noted in chart -renal function is stable with creatinine of 0.7 and GFR of 86 4. Psych -unable to examine, doubt we would be able to successfully obtain any imaging or labs -eval pending 10/25/16 16:40 10/25/16- Medical team Tamra is rapidly pacing the halls. This is documented to have been ongoing for some time- Suspect this is the main cause of her significant weight loss. She is also not eating. Add PO supplements 4x/day. She will need to have excess calories to offset the excessive exercise. Attending adjusting meds. Remeron is noted- hope this will help appetite. Mild elevated LFTs- recheck labs in AM. Assess CPK as well due to exercise amounts. Chart reviewed for collateral information. 10/26/16 10:29 Elevated LFTs -AST decreased slightly to 37, and ALT is now in normal range at 51 -CK is elevated at 277 (range is 30-135) -Lipid panel is pending, but in September 2016, Trigs 74, HDL 46, LDL (142H), VLDL 15 , Cardiac risk 4.4, nonHDL 157 Mild protein calorie malnutrition -Encourage oral intake -Dietitian has been consulted Labs reviewed -TSH is normal at 1.41 -Vitamin B12 and folate are pending -RPR: Nonreactive -Urinalysis is negative for UTI Psychiatry notes reviewed -Discontinue Paxil -Increase Remeron dose -Negative timing of Zyprexa to HS -Trial of gabapentin later today 10/29/16 13:39 Labs reviewed -Cholesterol level elevated -Vitamin B12 is low range of normal; folate was normal -recheck LFTs, CPK to ensure they are trending down on 10/31/16 Vital signs overall remain stable. Mild PCM -Cell Geneticist recommended Boost Breeze with every meal. Psychiatry notes reviewed -increase gabapentin to 400mg po tid -goal is to reduce zyprexa which could exacerbate restlessness. -test dose of guanfacine -considering depakote 10/31/16 15:11 CMP obtained this morning, AST was down to 33, but ALT has increased slightly to 56. Alkaline phosphatase is normal at 81. Remainder of chemistries remained stable. Otherwise, medically stable, though need to encourage oral intake. Psychiatry notes reviewed 11/02/16 10:59 *Cognitive deficit/Behavioral dyscontrol- Per psych. Notes reviewed. Still variable behaviors. *Malnutrition- due to severe pacing, minimal rest. I did consult handbag operator-await evaluation. Encourage oral intake. She will need extensive calories to offset activity. Johnnie count. Add supplements. *Elevated LFTs, mild- assess Hep Panel. Repeat CMP in AM for stability *HLD- Avoid statins given risk of Rhabdo with activity level. Mildly elevated CPK. Trending down. 11/07/16 18:10 Will review hospital course thoroughly and consider medication options 11/08/16 11:39 Continue current care 11/09/16 12:46 Continue current care
[2016-11-12] MEDS: LORazepam 0.5 MG TABLET PO PRN (14:01)
[2016-11-12] MEDS: CarBAMazepine 200 MG TABLET PO SCH (19:01)
[2016-11-13] MEDS: GABAPENTIN 400 MG CAPSULE PO SCH ×5 (00:28→20:35)
[2016-11-13] MEDS: MELATONIN 1 MG TABLET PO SCH ×4 (00:29→23:36)
[2016-11-13] MEDS: TRAMADOL/APAP 37.5 MG/325 MG TABLET PO SCH ×5 (00:29→20:35)
[2016-11-13] MEDS: MELOXICAM 15 MG TABLET PO SCH (09:01)
[2016-11-13] MEDS: CarBAMazepine 200 MG TABLET PO SCH ×2 (09:02→18:36)
[2016-11-13] MEDS: OMEPRAZOLE 20 MG CAPSULE PO SCH (09:03)
[2016-11-13] MEDS: LORazepam 0.5 MG TABLET PO PRN (09:05)
--- NOTE | 2016-11-13 18:29 | Neuropsych Progress Note ---
Generations Subjective Date: 11/13/16 - Sujective/Severity of Illness Medications: Acetaminophen (Tylenol) 650 mg PO Q5H PRN PRN Reason: Discomfort Last Admin: 11/05/16 15:49 Dose: 650 mg Carbamazepine (Tegretol) 200 mg PO BIDWM [facility] Last Admin: 11/13/16 09:02 Dose: 200 mg Docusate Sodium (Colace) 100 mg PO BID PRN Last Admin: 11/06/16 09:07 Dose: 100 mg Gabapentin (Neurontin) 400 mg PO TID [facility] Last Admin: 11/13/16 09:01 Dose: 400 mg Lorazepam (Ativan Intensol) 0.5 mg SL Q6HR PRN PRN Reason: Agitation Last Admin: 11/11/16 21:27 Dose: 0.5 mg Lorazepam (Ativan) 1 mg PO TID [facility] Lorazepam (Ativan Inj) 0.5 mg IM Q6H PRN PRN Reason: Extreme agitation Lorazepam (Ativan) 0.5 mg PO Q6H PRN PRN Reason: Extreme agitation Last Admin: 11/13/16 09:05 Dose: 0.5 mg Magnesium Hydroxide (Mom) 30 ml PO DAILY PRN PRN Reason: Constipation Last Admin: 11/02/16 11:46 Dose: 30 ml Melatonin (Melatonin) 3 mg PO HS [facility] Last Admin: 11/13/16 00:42 Dose: Not Given Meloxicam (Mobic) 15 mg PO WB [facility] Last Admin: 11/13/16 09:01 Dose: 15 mg Omeprazole (Prilosec) 20 mg PO ACB [facility] Last Admin: 11/13/16 09:03 Dose: 20 mg Polyethylene Glycol (Miralax) 17 gm PO Q3D [facility] Last Admin: 11/11/16 02:57 Dose: 17 gm Tramadol/Acetaminophen (Ultracet) 1 tab PO TID [facility] Last Admin: 11/13/16 09:01 Dose: 1 tab Subjective: Pt seen and chart examined. Nursing reports pt is doing a little better. Pt has been resting quietly today and no behaviors noted. On face to face the pt is resting quietly in bed. She is only oriented to self. She denies any pain. Tolerating meds Start Time: 18:00 Stop Time: 18:15 Mental Status Exam Vitals: Last Vital Signs Temp 97.7 F 11/13/16 16:00 Pulse 65 11/13/16 16:00 Resp 20 11/13/16 16:00 BP 107/65 11/13/16 16:00 Pulse Ox 98 11/13/16 16:00 Height: 1.5 m Weight: 47.2 kg - Mental Status Exam Muscle Strength/Tone: Weak (risk of fall) Dressing: Casual Grooming: Disheveled Attitude: Uncooperative Motor Activity: Pacing, Restless (when awake) Eye Contact: Poor Speech: Other (Loud and dysarthric) Volume: Loud Rhythm: Mumbled, Paucity of Language Orientation: Disoriented to time, Disoriented to place, Disoriented to situation Mood: Irritable, Anxious, Fearful Rate of Thoughts: Delayed Thought Organization: Disorganized, Confused Associations: Illogical Abstract Reasoning: Impaired, concrete Thought Content: Other (frequently regresses, speaks in childlike voice about past trauma) Perception/Psychotic: Perception Normal, Other Language: Naming Impaired Fund of Knowledge: Poor fund of knowledge Memory: Poor-immediate, Poor-recent, Poor-remote Suicidal Ideation: None Homicidal Ideation: None Insight: Impaired Judgement: Impaired Impulse Control: Poor (though improving) - Laboratory Result Diagrams: 11/10/16 06:12 11/10/16 06:12 Laboratory Results - last 24 hr 11/13/16 07:50 AST 85 H ALT 125 H Assessment and Plan (1) Major neurocognitive disorder Problem details: with behavioral disturbance, due to frontotemporal brain disease Current visit: Yes Status: Chronic (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 Hospital Course: 10/24/16 08:47 Agree with admission 1. Chart reviewed in detail -labs from Sep, 2016 (CBC, CMP, and lipid panel) were fairly unremarkable -Pt was unable to provide any personal history 2. Mild elevations in LFTs -new compared to labs from September -?med related 3. CKD -noted in chart -renal function is stable with creatinine of 0.7 and GFR of 86 4. Psych -unable to examine, doubt we would be able to successfully obtain any imaging or labs -eval pending 10/25/16 16:40 10/25/16- Medical team Tamra is rapidly pacing the halls. This is documented to have been ongoing for some time- Suspect this is the main cause of her significant weight loss. She is also not eating. Add PO supplements 4x/day. She will need to have excess calories to offset the excessive exercise. Attending adjusting meds. Remeron is noted- hope this will help appetite. Mild elevated LFTs- recheck labs in AM. Assess CPK as well due to exercise amounts. Chart reviewed for collateral information. 10/26/16 10:29 Elevated LFTs -AST decreased slightly to 37, and ALT is now in normal range at 51 -CK is elevated at 277 (range is 30-135) -Lipid panel is pending, but in September 2016, Trigs 74, HDL 46, LDL (142H), VLDL 15 , Cardiac risk 4.4, nonHDL 157 Mild protein calorie malnutrition -Encourage oral intake -Dietitian has been consulted Labs reviewed -TSH is normal at 1.41 -Vitamin B12 and folate are pending -RPR: Nonreactive -Urinalysis is negative for UTI Psychiatry notes reviewed -Discontinue Paxil -Increase Remeron dose -Negative timing of Zyprexa to HS -Trial of gabapentin later today 10/29/16 13:39 Labs reviewed -Cholesterol level elevated -Vitamin B12 is low range of normal; folate was normal -recheck LFTs, CPK to ensure they are trending down on 10/31/16 Vital signs overall remain stable. Mild PCM -Air Brush Decorator recommended Boost Breeze with every meal. Psychiatry notes reviewed -increase gabapentin to 400mg po tid -goal is to reduce zyprexa which could exacerbate restlessness. -test dose of guanfacine -considering depakote 10/31/16 15:11 CMP obtained this morning, AST was down to 33, but ALT has increased slightly to 56. Alkaline phosphatase is normal at 81. Remainder of chemistries remained stable. Otherwise, medically stable, though need to encourage oral intake. Psychiatry notes reviewed 11/02/16 10:59 *Cognitive deficit/Behavioral dyscontrol- Per psych. Notes reviewed. Still variable behaviors. *Malnutrition- due to severe pacing, minimal rest. I did consult loss control engineer-await evaluation. Encourage oral intake. She will need extensive calories to offset activity. Johnnie count. Add supplements. *Elevated LFTs, mild- assess Hep Panel. Repeat CMP in AM for stability *HLD- Avoid statins given risk of Rhabdo with activity level. Mildly elevated CPK. Trending down. 11/07/16 18:10 Will review hospital course thoroughly and consider medication options 11/08/16 11:39 Continue current care 11/09/16 12:46 Continue current care 11/13/16 18:28 Increase Ativan to 1mg PO TID
[2016-11-13] MEDS: LORazepam 0.5 MG TABLET PO SCH ×2 (18:36→20:36)
[2016-11-13] MEDS: POLYETHYL GLYCOL 3350 17gm PACKET PO SCH ×2 (21:09→23:36)
[2016-11-14] MEDS: OMEPRAZOLE 20 MG CAPSULE PO SCH (06:28)
[2016-11-14] MEDS: GABAPENTIN 400 MG CAPSULE PO SCH ×3 (11:50→21:00)
[2016-11-14] MEDS: LORazepam 0.5 MG TABLET PO SCH (11:50)
[2016-11-14] MEDS: TRAMADOL/APAP 37.5 MG/325 MG TABLET PO SCH ×3 (11:51→23:36)
[2016-11-14] MEDS: MELOXICAM 15 MG TABLET PO SCH (11:51)
[2016-11-14] MEDS: CarBAMazepine 200 MG TABLET PO SCH ×2 (11:51→23:36)
--- NOTE | 2016-11-14 18:36 | Neuropsych Progress Note ---
Generations Subjective Date: 11/14/16 - Sujective/Severity of Illness Medications: Acetaminophen (Tylenol) 650 mg PO Q5H PRN PRN Reason: Discomfort Last Admin: 11/05/16 15:49 Dose: 650 mg Carbamazepine (Tegretol) 200 mg PO BIDWM [facility] Last Admin: 11/14/16 11:51 Dose: 200 mg Docusate Sodium (Colace) 100 mg PO BID PRN Last Admin: 11/06/16 09:07 Dose: 100 mg Gabapentin (Neurontin) 400 mg PO TID [facility] Last Admin: 11/14/16 11:50 Dose: 400 mg Lorazepam (Ativan Intensol) 0.5 mg SL Q6HR PRN PRN Reason: Agitation Last Admin: 11/11/16 21:27 Dose: 0.5 mg Lorazepam (Ativan) 1 mg PO BID [facility] Lorazepam (Ativan Inj) 0.5 mg IM Q6H PRN PRN Reason: Extreme agitation Lorazepam (Ativan) 0.5 mg PO Q6H PRN PRN Reason: Extreme agitation Last Admin: 11/13/16 09:05 Dose: 0.5 mg Magnesium Hydroxide (Mom) 30 ml PO DAILY PRN PRN Reason: Constipation Last Admin: 11/02/16 11:46 Dose: 30 ml Melatonin (Melatonin) 3 mg PO HS [facility] Last Admin: 11/13/16 23:36 Dose: Not Given Meloxicam (Mobic) 15 mg PO WB [facility] Last Admin: 11/14/16 11:51 Dose: 15 mg Omeprazole (Prilosec) 20 mg PO ACB [facility] Last Admin: 11/14/16 06:28 Dose: 20 mg Polyethylene Glycol (Miralax) 17 gm PO Q3D [facility] Last Admin: 11/13/16 23:36 Dose: Not Given Tramadol/Acetaminophen (Ultracet) 1 tab PO TID [facility] Last Admin: 11/14/16 11:51 Dose: 1 tab Subjective: Pt seen and chart examined. Nursing reports pt is sleeping more. She continues to pace and yell out when awake. On face to face the pt is yelling out. She is not able to answer my questions. She does not appear to be in any pain. Tolerating meds Start Time: 17:30 Stop Time: 17:45 Mental Status Exam Vitals: Last Vital Signs Temp 97.7 F 11/14/16 16:37 Pulse 70 11/14/16 16:37 Resp 14 11/14/16 16:37 BP 139/76 11/14/16 16:37 Pulse Ox 96 11/14/16 16:37 Height: 1.5 m Weight: 47.2 kg - Mental Status Exam Muscle Strength/Tone: Weak (risk of fall) Dressing: Casual Grooming: Disheveled Attitude: Uncooperative Motor Activity: Pacing, Restless (when awake) Eye Contact: Poor Speech: Other (Loud and dysarthric) Volume: Loud Rhythm: Mumbled, Paucity of Language Orientation: Disoriented to time, Disoriented to place, Disoriented to situation Mood: Irritable, Anxious, Fearful Rate of Thoughts: Delayed Thought Organization: Disorganized, Confused Associations: Illogical Abstract Reasoning: Impaired, concrete Thought Content: Other (frequently regresses, speaks in childlike voice about past trauma) Perception/Psychotic: Perception Normal, Other Language: Naming Impaired Fund of Knowledge: Poor fund of knowledge Memory: Poor-immediate, Poor-recent, Poor-remote Suicidal Ideation: None Homicidal Ideation: None Insight: Impaired Judgement: Impaired Impulse Control: Poor (though improving) - Laboratory Result Diagrams: 11/10/16 06:12 11/10/16 06:12 Assessment and Plan (1) Major neurocognitive disorder Problem details: with behavioral disturbance, due to frontotemporal brain disease Current visit: Yes Status: Chronic (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 Hospital Course: 10/24/16 08:47 Agree with admission 1. Chart reviewed in detail -labs from Sep, 2016 (CBC, CMP, and lipid panel) were fairly unremarkable -Pt was unable to provide any personal history 2. Mild elevations in LFTs -new compared to labs from September -?med related 3. CKD -noted in chart -renal function is stable with creatinine of 0.7 and GFR of 86 4. Psych -unable to examine, doubt we would be able to successfully obtain any imaging or labs -eval pending 10/25/16 16:40 10/25/16- Medical team Tamra is rapidly pacing the halls. This is documented to have been ongoing for some time- Suspect this is the main cause of her significant weight loss. She is also not eating. Add PO supplements 4x/day. She will need to have excess calories to offset the excessive exercise. Attending adjusting meds. Remeron is noted- hope this will help appetite. Mild elevated LFTs- recheck labs in AM. Assess CPK as well due to exercise amounts. Chart reviewed for collateral information. 10/26/16 10:29 Elevated LFTs -AST decreased slightly to 37, and ALT is now in normal range at 51 -CK is elevated at 277 (range is 30-135) -Lipid panel is pending, but in September 2016, Trigs 74, HDL 46, LDL (142H), VLDL 15 , Cardiac risk 4.4, nonHDL 157 Mild protein calorie malnutrition -Encourage oral intake -Dietitian has been consulted Labs reviewed -TSH is normal at 1.41 -Vitamin B12 and folate are pending -RPR: Nonreactive -Urinalysis is negative for UTI Psychiatry notes reviewed -Discontinue Paxil -Increase Remeron dose -Negative timing of Zyprexa to HS -Trial of gabapentin later today 10/29/16 13:39 Labs reviewed -Cholesterol level elevated -Vitamin B12 is low range of normal; folate was normal -recheck LFTs, CPK to ensure they are trending down on 10/31/16 Vital signs overall remain stable. Mild PCM -Blueprinting And Photocopy Supervisor recommended Boost Breeze with every meal. Psychiatry notes reviewed -increase gabapentin to 400mg po tid -goal is to reduce zyprexa which could exacerbate restlessness. -test dose of guanfacine -considering depakote 10/31/16 15:11 CMP obtained this morning, AST was down to 33, but ALT has increased slightly to 56. Alkaline phosphatase is normal at 81. Remainder of chemistries remained stable. Otherwise, medically stable, though need to encourage oral intake. Psychiatry notes reviewed 11/02/16 10:59 *Cognitive deficit/Behavioral dyscontrol- Per psych. Notes reviewed. Still variable behaviors. *Malnutrition- due to severe pacing, minimal rest. I did consult lithographic stripper-await evaluation. Encourage oral intake. She will need extensive calories to offset activity. Johnnie count. Add supplements. *Elevated LFTs, mild- assess Hep Panel. Repeat CMP in AM for stability *HLD- Avoid statins given risk of Rhabdo with activity level. Mildly elevated CPK. Trending down. 11/07/16 18:10 Will review hospital course thoroughly and consider medication options 11/08/16 11:39 Continue current care 11/09/16 12:46 Continue current care 11/13/16 18:28 Increase Ativan to 1mg PO TID 11/14/16 18:35 Decrease Ativan to 1mg PO BID
[2016-11-14] MEDS: MELATONIN 1 MG TABLET PO SCH (21:00)
[2016-11-14] MEDS: LORazepam 1 MG TABLET PO SCH (21:00)
[2016-11-15] MEDS: CarBAMazepine 200 MG TABLET PO SCH ×2 (07:35→16:38)
[2016-11-15] MEDS: OMEPRAZOLE 20 MG CAPSULE PO SCH (07:35)
[2016-11-15] MEDS: MELOXICAM 15 MG TABLET PO SCH (07:38)
[2016-11-15] MEDS: GABAPENTIN 400 MG CAPSULE PO SCH ×4 (08:37→23:14)
[2016-11-15] MEDS: LORazepam 1 MG TABLET PO SCH ×3 (08:37→23:14)
[2016-11-15] MEDS: TRAMADOL/APAP 37.5 MG/325 MG TABLET PO SCH ×5 (08:38→23:14)
--- NOTE | 2016-11-15 11:36 | Neuropsych Progress Note ---
Generations Subjective Date: 11/15/16 - Sujective/Severity of Illness Medications: Acetaminophen (Tylenol) 650 mg PO Q5H PRN PRN Reason: Discomfort Last Admin: 11/05/16 15:49 Dose: 650 mg Carbamazepine (Tegretol) 200 mg PO BIDWM [facility] Last Admin: 11/15/16 07:35 Dose: 200 mg Docusate Sodium (Colace) 100 mg PO BID PRN Last Admin: 11/06/16 09:07 Dose: 100 mg Gabapentin (Neurontin) 400 mg PO TID [facility] Last Admin: 11/15/16 08:37 Dose: 400 mg Lorazepam (Ativan Intensol) 0.5 mg SL Q6HR PRN PRN Reason: Agitation Last Admin: 11/11/16 21:27 Dose: 0.5 mg Lorazepam (Ativan) 1 mg PO BID [facility] Last Admin: 11/15/16 08:37 Dose: 1 mg Lorazepam (Ativan Inj) 0.5 mg IM Q6H PRN PRN Reason: Extreme agitation Lorazepam (Ativan) 0.5 mg PO Q6H PRN PRN Reason: Extreme agitation Last Admin: 11/13/16 09:05 Dose: 0.5 mg Magnesium Hydroxide (Mom) 30 ml PO DAILY PRN PRN Reason: Constipation Last Admin: 11/02/16 11:46 Dose: 30 ml Melatonin (Melatonin) 3 mg PO HS [facility] Last Admin: 11/14/16 21:00 Dose: 3 mg Meloxicam (Mobic) 15 mg PO WB [facility] Last Admin: 11/15/16 07:38 Dose: 15 mg Omeprazole (Prilosec) 20 mg PO ACB [facility] Last Admin: 11/15/16 07:35 Dose: 20 mg Polyethylene Glycol (Miralax) 17 gm PO Q3D [facility] Last Admin: 11/13/16 23:36 Dose: Not Given Tramadol/Acetaminophen (Ultracet) 1 tab PO TID [facility] Last Admin: 11/15/16 08:38 Dose: 1 tab Subjective: Pt seen and chart examined. Nursing reports pt continues to sleep much of the day but continues to pace and yell out when awake. On face to face is resting quietly in bed. She is not able to answer my questions. She does not appear to be in any pain. Tolerating meds Start Time: 11:00 Stop Time: 11:15 Mental Status Exam Vitals: Last Vital Signs Temp 96.4 F L 11/15/16 00:00 Pulse 95 11/15/16 00:00 Resp 12 11/15/16 00:00 BP 81/48 11/15/16 00:00 Pulse Ox 94 11/15/16 00:00 Height: 1.5 m Weight: 47.2 kg - Mental Status Exam Muscle Strength/Tone: Weak (risk of fall) Dressing: Casual Grooming: Fair Attitude: Cooperative Motor Activity: Retardation Eye Contact: Poor Speech: Other (Loud and dysarthric) Volume: Soft Rhythm: Mumbled, Paucity of Language Orientation: Disoriented to time, Disoriented to place, Disoriented to situation Mood: Irritable, Anxious, Fearful Rate of Thoughts: Delayed Thought Organization: Disorganized, Confused Associations: Illogical Abstract Reasoning: Impaired, concrete Thought Content: Other (frequently regresses, speaks in childlike voice about past trauma) Perception/Psychotic: Perception Normal, Other Language: Naming Impaired Fund of Knowledge: Poor fund of knowledge Memory: Poor-immediate, Poor-recent, Poor-remote Suicidal Ideation: None Homicidal Ideation: None Insight: Impaired Judgement: Impaired Impulse Control: Poor (though improving) - Laboratory Result Diagrams: 11/10/16 06:12 11/10/16 06:12 Laboratory Results - last 24 hr 11/15/16 07:30 AST 43 H D ALT 89 H Assessment and Plan (1) Major 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 Hospital Course: 10/24/16 08:47 Agree with admission 1. Chart reviewed in detail -labs from Sep, 2016 (CBC, CMP, and lipid panel) were fairly unremarkable -Pt was unable to provide any personal history 2. Mild elevations in LFTs -new compared to labs from September -?med related 3. CKD -noted in chart -renal function is stable with creatinine of 0.7 and GFR of 86 4. Psych -unable to examine, doubt we would be able to successfully obtain any imaging or labs -eval pending 10/25/16 16:40 10/25/16- Medical team Tamra is rapidly pacing the halls. This is documented to have been ongoing for some time- Suspect this is the main cause of her significant weight loss. She is also not eating. Add PO supplements 4x/day. She will need to have excess calories to offset the excessive exercise. Attending adjusting meds. Remeron is noted- hope this will help appetite. Mild elevated LFTs- recheck labs in AM. Assess CPK as well due to exercise amounts. Chart reviewed for collateral information. 10/26/16 10:29 Elevated LFTs -AST decreased slightly to 37, and ALT is now in normal range at 51 -CK is elevated at 277 (range is 30-135) -Lipid panel is pending, but in September 2016, Trigs 74, HDL 46, LDL (142H), VLDL 15 , Cardiac risk 4.4, nonHDL 157 Mild protein calorie malnutrition -Encourage oral intake -Dietitian has been consulted Labs reviewed -TSH is normal at 1.41 -Vitamin B12 and folate are pending -RPR: Nonreactive -Urinalysis is negative for UTI Psychiatry notes reviewed -Discontinue Paxil -Increase Remeron dose -Negative timing of Zyprexa to HS -Trial of gabapentin later today 10/29/16 13:39 Labs reviewed -Cholesterol level elevated -Vitamin B12 is low range of normal; folate was normal -recheck LFTs, CPK to ensure they are trending down on 10/31/16 Vital signs overall remain stable. Mild PCM -Lens Block Gauger recommended Boost Breeze with every meal. Psychiatry notes reviewed -increase gabapentin to 400mg po tid -goal is to reduce zyprexa which could exacerbate restlessness. -test dose of guanfacine -considering depakote 10/31/16 15:11 CMP obtained this morning, AST was down to 33, but ALT has increased slightly to 56. Alkaline phosphatase is normal at 81. Remainder of chemistries remained stable. Otherwise, medically stable, though need to encourage oral intake. Psychiatry notes reviewed 11/02/16 10:59 *Cognitive deficit/Behavioral dyscontrol- Per psych. Notes reviewed. Still variable behaviors. *Malnutrition- due to severe pacing, minimal rest. I did consult clip coater-await evaluation. Encourage oral intake. She will need extensive calories to offset activity. Johnnie count. Add supplements. *Elevated LFTs, mild- assess Hep Panel. Repeat CMP in AM for stability *HLD- Avoid statins given risk of Rhabdo with activity level. Mildly elevated CPK. Trending down. 11/07/16 18:10 Will review hospital course thoroughly and consider medication options 11/08/16 11:39 Continue current care 11/09/16 12:46 Continue current care 11/13/16 18:28 Increase Ativan to 1mg PO TID 11/14/16 18:35 Decrease Ativan to 1mg PO BID 11/15/16 11:34 Continue current care
--- NOTE | 2016-11-15 11:47 | Progress Note ---
Subjective: Tamra is seen this morning while sleeping in bed. She does not arouse during examination. She is comfortably breathing on room air and does not appear to be in any distress. Discussed status with nursing staff and review document carefully. Overall behaviors have been somewhat improved. Objective Vital signs: Temperature 96.4 F L 11/15/16 00:00 Pulse Rate 95 11/15/16 00:00 Respiratory Rate 12 11/15/16 00:00 Blood Pressure 81/48 11/15/16 00:00 Pulse Oximetry 94 11/15/16 00:00 Oxygen Delivery Method Room Air Oxygen Flow Rate 0 Weight: 47.2 kg - Constitutional Present: no acute distress - Routine HEENT Exam Head: Present: normocephalic, atraumatic - Routine Respiratory Exam Present: CTA bilaterally - Routine Cardiovascular Exam Present: RRR, S1, S2 - Routine Abdominal Exam Present: soft, normoactive bowel sounds Results - Labs CBC & Chem 7: 11/10/16 06:12 11/10/16 06:12 Assessment and Plan (1) Dementia with behavioral problem Current visit: Yes Status: Acute (2) Mixed hyperlipidemia Current visit: Yes Status: Acute (3) Chronic kidney disease Current visit: Yes Status: Acute (4) Elevated LFTs Current visit: Yes Status: Acute (5) Major neurocognitive disorder Problem details: with behavioral disturbance, due to frontotemporal brain disease Current visit: Yes Status: Chronic (6) Frontotemporal brain disease Current visit: Yes Status: Chronic (7) Weight loss, non-intentional Current visit: Yes Status: Acute (8) Protein-calorie malnutrition, mild Current visit: Yes Status: Acute (9) Pain Current visit: Yes Status: Chronic Assessment and Plan: 11/15 Continue with psychiatric care as per Dr Ward. Overall behaviors appear to be improved Elevated LFTs/Weight loss-LFTs continued to trend down. Today AST- 43, ALT- 89. Will continue to monitor. Blood pressure has been well controlled. She did have one low pressure last night. Will continue to follow. Colace for ongoing bowel motivation Ultracet as needed for pain control. Continue to provide a safe environment for patient Sepsis Assessment - Evaluation Sepsis screening result: No Definite Risk Hospital Course Summary Disclaimer: The visit summary below is not to be considered part of the above Progress Note. Hospital Course: 10/24/16 08:47 Agree with admission 1. Chart reviewed in detail -labs from Sep, 2016 (CBC, CMP, and lipid panel) were fairly unremarkable -Pt was unable to provide any personal history 2. Mild elevations in LFTs -new compared to labs from September -?med related 3. CKD -noted in chart -renal function is stable with creatinine of 0.7 and GFR of 86 4. Psych -unable to examine, doubt we would be able to successfully obtain any imaging or labs -eval pending 10/25/16 16:40 10/25/16- Medical team Tamra is rapidly pacing the halls. This is documented to have been ongoing for some time- Suspect this is the main cause of her significant weight loss. She is also not eating. Add PO supplements 4x/day. She will need to have excess calories to offset the excessive exercise. Attending adjusting meds. Remeron is noted- hope this will help appetite. Mild elevated LFTs- recheck labs in AM. Assess CPK as well due to exercise amounts. Chart reviewed for collateral information. 10/26/16 10:29 Elevated LFTs -AST decreased slightly to 37, and ALT is now in normal range at 51 -CK is elevated at 277 (range is 30-135) -Lipid panel is pending, but in September 2016, Trigs 74, HDL 46, LDL (142H), VLDL 15 , Cardiac risk 4.4, nonHDL 157 Mild protein calorie malnutrition -Encourage oral intake -Dietitian has been consulted Labs reviewed -TSH is normal at 1.41 -Vitamin B12 and folate are pending -RPR: Nonreactive -Urinalysis is negative for UTI Psychiatry notes reviewed -Discontinue Paxil -Increase Remeron dose -Negative timing of Zyprexa to HS -Trial of gabapentin later today 10/29/16 13:39 Labs reviewed -Cholesterol level elevated -Vitamin B12 is low range of normal; folate was normal -recheck LFTs, CPK to ensure they are trending down on 10/31/16 Vital signs overall remain stable. Mild PCM -Nurse Prn recommended Boost Breeze with every meal. Psychiatry notes reviewed -increase gabapentin to 400mg po tid -goal is to reduce zyprexa which could exacerbate restlessness. -test dose of guanfacine -considering depakote 10/31/16 15:11 CMP obtained this morning, AST was down to 33, but ALT has increased slightly to 56. Alkaline phosphatase is normal at 81. Remainder of chemistries remained stable. Otherwise, medically stable, though need to encourage oral intake. Psychiatry notes reviewed 11/02/16 10:59 *Cognitive deficit/Behavioral dyscontrol- Per psych. Notes reviewed. Still variable behaviors. *Malnutrition- due to severe pacing, minimal rest. I did consult olive grader-await evaluation. Encourage oral intake. She will need extensive calories to offset activity. Johnnie count. Add supplements. *Elevated LFTs, mild- assess Hep Panel. Repeat CMP in AM for stability *HLD- Avoid statins given risk of Rhabdo with activity level. Mildly elevated CPK. Trending down. 11/07/16 18:10 Will review hospital course thoroughly and consider medication options 11/08/16 11:39 Continue current care 11/09/16 12:46 Continue current care 11/13/16 18:28 Increase Ativan to 1mg PO TID 11/14/16 18:35 Decrease Ativan to 1mg PO BID 11/15 Continue with psychiatric care as per Dr Ward. Overall behaviors appear to be improved Elevated LFTs/Weight loss-LFTs continued to trend down. Today AST- 43, ALT- 89. Will continue to monitor. Blood pressure has been well controlled. She did have one low pressure last night. Will continue to follow. Colace for ongoing bowel motivation Ultracet as needed for pain control. Continue to provide a safe environment for patient
[2016-11-15] MEDS: ACETAMINOPHEN 325 MG TABLET PO PRN (13:49)
[2016-11-15] MEDS: LORazepam INTENSOL 1mg/0.5ml ORAL LIQUID SL PRN (13:49)
[2016-11-15] MEDS: MELATONIN 1 MG TABLET PO SCH ×2 (19:17→23:15)
[2016-11-16] MEDS: OMEPRAZOLE 20 MG CAPSULE PO SCH (08:31)
[2016-11-16] MEDS: MELOXICAM 15 MG TABLET PO SCH (08:31)
[2016-11-16] MEDS: TRAMADOL/APAP 37.5 MG/325 MG TABLET PO SCH (08:31)
[2016-11-16] MEDS: GABAPENTIN 400 MG CAPSULE PO SCH ×3 (08:31→20:08)
[2016-11-16] MEDS: CarBAMazepine 200 MG TABLET PO SCH ×2 (08:31→17:54)
[2016-11-16] MEDS: LORazepam 1 MG TABLET PO SCH ×2 (08:31→20:11)
[2016-11-16] MEDS ORDERED: LORazepam INTENSOL 1mg/0.5ml ORAL LIQUID PO ONE (08:50)
--- NOTE | 2016-11-16 11:08 | Neuropsych Progress Note ---
[facility] Subjective Date: 11/16/16 - Sujective/Severity of Illness Medications: Acetaminophen (Tylenol) 650 mg PO Q5H PRN PRN Reason: Discomfort Last Admin: 11/15/16 13:49 Dose: 650 mg Carbamazepine (Tegretol) 200 mg PO BIDWM [facility] Last Admin: 11/16/16 08:31 Dose: 200 mg Docusate Sodium (Colace) 100 mg PO BID PRN Last Admin: 11/06/16 09:07 Dose: 100 mg Gabapentin (Neurontin) 400 mg PO TID [facility] Last Admin: 11/16/16 08:31 Dose: 400 mg Lorazepam (Ativan Intensol) 0.5 mg SL Q6HR PRN PRN Reason: Agitation Last Admin: 11/15/16 13:49 Dose: 0.5 mg Lorazepam (Ativan) 1 mg PO BID [facility] Last Admin: 11/16/16 08:31 Dose: 1 mg Lorazepam (Ativan Inj) 0.5 mg IM Q6H PRN PRN Reason: Extreme agitation Lorazepam (Ativan) 0.5 mg PO Q6H PRN PRN Reason: Extreme agitation Last Admin: 11/13/16 09:05 Dose: 0.5 mg Magnesium Hydroxide (Mom) 30 ml PO DAILY PRN PRN Reason: Constipation Last Admin: 11/02/16 11:46 Dose: 30 ml Melatonin (Melatonin) 3 mg PO HS [facility] Last Admin: 11/15/16 23:15 Dose: Not Given Meloxicam (Mobic) 15 mg PO WB [facility] Last Admin: 11/16/16 08:31 Dose: 15 mg Omeprazole (Prilosec) 20 mg PO ACB [facility] Last Admin: 11/16/16 08:31 Dose: 20 mg Polyethylene Glycol (Miralax) 17 gm PO Q3D [facility] Last Admin: 11/13/16 23:36 Dose: Not Given Tramadol/Acetaminophen (Ultracet) 1 tab PO TID [facility] Last Admin: 11/16/16 08:31 Dose: 1 tab Subjective: Pt seen and chart examined. Nursing reports pt slept well and has a good appetite. Was up this AM and pacing and yelling but is now back in bed. On face to face the pt is resting quietly in bed. She does not appear in pain and voices no concerns at this time. Tolerating meds Start Time: 10:00 Stop Time: 10:15 Mental Status Exam Vitals: Last Vital Signs Temp 97.8 F 11/16/16 08:00 Pulse 72 11/16/16 08:00 Resp 12 11/16/16 08:00 BP 98/57 11/16/16 08:00 Pulse Ox 96 11/16/16 08:00 Height: 1.5 m Weight: 45.2 kg - Mental Status Exam Muscle Strength/Tone: Weak (risk of fall) Dressing: Casual Grooming: Fair Attitude: Cooperative Motor Activity: Retardation Eye Contact: Poor Speech: Other (Loud and dysarthric) Volume: Soft Rhythm: Mumbled, Paucity of Language Orientation: Disoriented to time, Disoriented to place, Disoriented to situation Mood: Irritable, Anxious, Fearful Rate of Thoughts: Delayed Thought Organization: Disorganized, Confused Associations: Illogical Abstract Reasoning: Impaired, concrete Thought Content: Other (frequently regresses, speaks in childlike voice about past trauma) Perception/Psychotic: Perception Normal, Other Language: Naming Impaired Fund of Knowledge: Poor fund of knowledge Memory: Poor-immediate, Poor-recent, Poor-remote Suicidal Ideation: None Homicidal Ideation: None Insight: Impaired Judgement: Impaired Impulse Control: Poor (though improving) - Laboratory Result Diagrams: 11/10/16 06:12 11/10/16 06:12 Assessment and Plan (1) Major 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 Hospital Course: 10/24/16 08:47 Agree with admission 1. Chart reviewed in detail -labs from Sep, 2016 (CBC, CMP, and lipid panel) were fairly unremarkable -Pt was unable to provide any personal history 2. Mild elevations in LFTs -new compared to labs from September -?med related 3. CKD -noted in chart -renal function is stable with creatinine of 0.7 and GFR of 86 4. Psych -unable to examine, doubt we would be able to successfully obtain any imaging or labs -eval pending 10/25/16 16:40 10/25/16- Medical team Tamra is rapidly pacing the halls. This is documented to have been ongoing for some time- Suspect this is the main cause of her significant weight loss. She is also not eating. Add PO supplements 4x/day. She will need to have excess calories to offset the excessive exercise. Attending adjusting meds. Remeron is noted- hope this will help appetite. Mild elevated LFTs- recheck labs in AM. Assess CPK as well due to exercise amounts. Chart reviewed for collateral information. 10/26/16 10:29 Elevated LFTs -AST decreased slightly to 37, and ALT is now in normal range at 51 -CK is elevated at 277 (range is 30-135) -Lipid panel is pending, but in September 2016, Trigs 74, HDL 46, LDL (142H), VLDL 15 , Cardiac risk 4.4, nonHDL 157 Mild protein calorie malnutrition -Encourage oral intake -Dietitian has been consulted Labs reviewed -TSH is normal at 1.41 -Vitamin B12 and folate are pending -RPR: Nonreactive -Urinalysis is negative for UTI Psychiatry notes reviewed -Discontinue Paxil -Increase Remeron dose -Negative timing of Zyprexa to HS -Trial of gabapentin later today 10/29/16 13:39 Labs reviewed -Cholesterol level elevated -Vitamin B12 is low range of normal; folate was normal -recheck LFTs, CPK to ensure they are trending down on 10/31/16 Vital signs overall remain stable. Mild PCM -Bait Maker recommended Boost Breeze with every meal. Psychiatry notes reviewed -increase gabapentin to 400mg po tid -goal is to reduce zyprexa which could exacerbate restlessness. -test dose of guanfacine -considering depakote 10/31/16 15:11 CMP obtained this morning, AST was down to 33, but ALT has increased slightly to 56. Alkaline phosphatase is normal at 81. Remainder of chemistries remained stable. Otherwise, medically stable, though need to encourage oral intake. Psychiatry notes reviewed 11/02/16 10:59 *Cognitive deficit/Behavioral dyscontrol- Per psych. Notes reviewed. Still variable behaviors. *Malnutrition- due to severe pacing, minimal rest. I did consult photographic processor-await evaluation. Encourage oral intake. She will need extensive calories to offset activity. Johnnie count. Add supplements. *Elevated LFTs, mild- assess Hep Panel. Repeat CMP in AM for stability *HLD- Avoid statins given risk of Rhabdo with activity level. Mildly elevated CPK. Trending down. 11/07/16 18:10 Will review hospital course thoroughly and consider medication options 11/08/16 11:39 Continue current care 11/09/16 12:46 Continue current care 11/13/16 18:28 Increase Ativan to 1mg PO TID 11/14/16 18:35 Decrease Ativan to 1mg PO BID 11/15 Continue with psychiatric care as per Dr Ward. Overall behaviors appear to be improved Elevated LFTs/Weight loss-LFTs continued to trend down. Today AST- 43, ALT- 89. Will continue to monitor. Blood pressure has been well controlled. She did have one low pressure last night. Will continue to follow. Colace for ongoing bowel motivation Ultracet as needed for pain control. Continue to provide a safe environment for patient 11/16/16 11:08 Continue current care
[2016-11-16] MEDS: LORazepam INTENSOL 1mg/0.5ml ORAL LIQUID SL PRN (15:23)
[2016-11-16] MEDS: TRAMADOL 50 MG TABLET PO SCH ×2 (15:24→20:08)
[2016-11-16] MEDS: DOCUSATE SODIUM 100 MG CAPSULE PO PRN (16:03)
[2016-11-16] MEDS: POLYETHYL GLYCOL 3350 17gm PACKET PO SCH ×2 (20:09→23:06)
[2016-11-16] MEDS: MELATONIN 1 MG TABLET PO SCH ×2 (20:09→23:05)
[2016-11-17] MEDS: CarBAMazepine 200 MG TABLET PO SCH ×2 (14:03→18:39)
[2016-11-17] MEDS: GABAPENTIN 400 MG CAPSULE PO SCH ×3 (14:03→22:12)
[2016-11-17] MEDS: LORazepam 1 MG TABLET PO SCH ×2 (14:03→22:12)
[2016-11-17] MEDS: OMEPRAZOLE 20 MG CAPSULE PO SCH (14:03)
[2016-11-17] MEDS: MELOXICAM 15 MG TABLET PO SCH (14:03)
[2016-11-17] MEDS: TRAMADOL 50 MG TABLET PO SCH ×3 (14:04→22:12)
--- NOTE | 2016-11-17 14:24 | Neuropsych Progress Note ---
[facility] Subjective Date: 11/17/16 - Sujective/Severity of Illness Medications: Acetaminophen (Tylenol) 650 mg PO Q5H PRN PRN Reason: Discomfort Last Admin: 11/15/16 13:49 Dose: 650 mg Carbamazepine (Tegretol) 200 mg PO BIDWM [facility] Last Admin: 11/17/16 14:03 Dose: 200 mg Docusate Sodium (Colace) 100 mg PO BID PRN Last Admin: 11/16/16 16:03 Dose: 100 mg Gabapentin (Neurontin) 400 mg PO TID [facility] Last Admin: 11/17/16 14:03 Dose: 400 mg Lorazepam (Ativan Intensol) 0.5 mg SL Q6HR PRN PRN Reason: Agitation Last Admin: 11/16/16 15:23 Dose: 0.5 mg Lorazepam (Ativan) 1 mg PO BID [facility] Last Admin: 11/17/16 14:03 Dose: 1 mg Lorazepam (Ativan Inj) 0.5 mg IM Q6H PRN PRN Reason: Extreme agitation Lorazepam (Ativan) 0.5 mg PO Q6H PRN PRN Reason: Extreme agitation Last Admin: 11/13/16 09:05 Dose: 0.5 mg Magnesium Hydroxide (Mom) 30 ml PO DAILY PRN PRN Reason: Constipation Last Admin: 11/02/16 11:46 Dose: 30 ml Melatonin (Melatonin) 3 mg PO HS [facility] Last Admin: 11/16/16 23:05 Dose: Not Given Meloxicam (Mobic) 15 mg PO WB [facility] Last Admin: 11/17/16 14:03 Dose: 15 mg Omeprazole (Prilosec) 20 mg PO ACB [facility] Last Admin: 11/17/16 14:03 Dose: 20 mg Polyethylene Glycol (Miralax) 17 gm PO Q3D [facility] Last Admin: 11/16/16 23:06 Dose: Not Given Tramadol HCl (Ultram) 50 mg PO TID [facility] Last Admin: 11/17/16 14:04 Dose: 50 mg Subjective: Patient seen and chart examined. Nursing reports that patient is either sleeping or screaming whenever she is awake. She continues to have disorganized behavior, disoriented to place and time. Her liver enzymes appears to be trending downward since Depakote was discontinued. Patient sleeps well and has a good appetite even though it has decreased. On face to face the patient is resting quietly in bed. She does not appear in pain and voices no concerns at this time. Tolerating meds Start Time: 11:30 Stop Time: 11:45 Mental Status Exam Vitals: Last Vital Signs Temp 97.0 F 11/16/16 20:00 Pulse 58 L 11/16/16 20:00 Resp 12 11/16/16 20:00 BP 90/57 11/16/16 20:00 Pulse Ox 96 11/16/16 16:00 Height: 1.5 m Weight: 45.2 kg - Mental Status Exam Muscle Strength/Tone: Weak (risk of fall) Dressing: Casual Grooming: Fair Attitude: Uncooperative Motor Activity: Retardation Eye Contact: Poor Speech: Other (Loud and dysarthric) Volume: Soft Rhythm: Mumbled, Paucity of Language Orientation: Disoriented to time, Disoriented to place, Disoriented to situation Mood: Irritable, Anxious, Fearful Rate of Thoughts: Delayed Thought Organization: Disorganized, Confused Associations: Illogical Abstract Reasoning: Impaired, concrete Thought Content: Other (frequently regresses, speaks in childlike voice about past trauma) Perception/Psychotic: Perception Normal, Other Language: Naming Impaired Fund of Knowledge: Poor fund of knowledge Memory: Poor-immediate, Poor-recent, Poor-remote Suicidal Ideation: None Homicidal Ideation: None Insight: Impaired Judgement: Impaired Impulse Control: Poor (though improving) - Laboratory Result Diagrams: 11/17/16 04:50 11/17/16 04:50 Laboratory Results - last 24 hr 11/17/16 11/17/16 04:50 04:50 WBC 6.6 RBC 4.08 Hgb 12.9 Hct 39.7 MCV 97.3 MCH 31.6 MCHC 32.5 RDW Std Deviation 42.6 Plt Count 278 MPV 9.2 L Immature Gran % (Auto) 0.0 Neut % (Auto) 58.1 Lymph % (Auto) 25.4 Lewis % (Auto) 11.7 H Eos % (Auto) 3.7 Baso % (Auto) 1.1 Neut # 3.8 Lymph # 1.7 Lewis # 0.8 Eos # 0.2 Baso # 0.1 Abs Immat Gran (auto) 0.00 Turbidity < 20 Sodium 136 Potassium 4.5 Chloride 102 Carbon Dioxide 29 Anion Gap 5 BUN 17.0 Creatinine 0.6 L GFR Calculation 103 BUN/Creatinine Ratio 28 H Glucose 86 Calculated Osmolality 263 Calcium 9.0 Total Bilirubin 0.30 Icterus Index < 2 AST 50 H ALT 90 H Alkaline Phosphatase 84 Total Protein 5.7 L Albumin 3.6 Globulin 2.1 L Albumin/Globulin Ratio 1.7 Specimen Hemolysis 17 Assessment and Plan (1) Major 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 Hospital Course: 10/24/16 08:47 Agree with admission 1. Chart reviewed in detail -labs from Sep, 2016 (CBC, CMP, and lipid panel) were fairly unremarkable -Pt was unable to provide any personal history 2. Mild elevations in LFTs -new compared to labs from September -?med related 3. CKD -noted in chart -renal function is stable with creatinine of 0.7 and GFR of 86 4. Psych -unable to examine, doubt we would be able to successfully obtain any imaging or labs -eval pending 10/25/16 16:40 10/25/16- Medical team Tamra is rapidly pacing the halls. This is documented to have been ongoing for some time- Suspect this is the main cause of her significant weight loss. She is also not eating. Add PO supplements 4x/day. She will need to have excess calories to offset the excessive exercise. Attending adjusting meds. Remeron is noted- hope this will help appetite. Mild elevated LFTs- recheck labs in AM. Assess CPK as well due to exercise amounts. Chart reviewed for collateral information. 10/26/16 10:29 Elevated LFTs -AST decreased slightly to 37, and ALT is now in normal range at 51 -CK is elevated at 277 (range is 30-135) -Lipid panel is pending, but in September 2016, Trigs 74, HDL 46, LDL (142H), VLDL 15 , Cardiac risk 4.4, nonHDL 157 Mild protein calorie malnutrition -Encourage oral intake -Dietitian has been consulted Labs reviewed -TSH is normal at 1.41 -Vitamin B12 and folate are pending -RPR: Nonreactive -Urinalysis is negative for UTI Psychiatry notes reviewed -Discontinue Paxil -Increase Remeron dose -Negative timing of Zyprexa to HS -Trial of gabapentin later today 10/29/16 13:39 Labs reviewed -Cholesterol level elevated -Vitamin B12 is low range of normal; folate was normal -recheck LFTs, CPK to ensure they are trending down on 10/31/16 Vital signs overall remain stable. Mild PCM -Pattern Chain Maker Supervisor recommended Boost Breeze with every meal. Psychiatry notes reviewed -increase gabapentin to 400mg po tid -goal is to reduce zyprexa which could exacerbate restlessness. -test dose of guanfacine -considering depakote 10/31/16 15:11 CMP obtained this morning, AST was down to 33, but ALT has increased slightly to 56. Alkaline phosphatase is normal at 81. Remainder of chemistries remained stable. Otherwise, medically stable, though need to encourage oral intake. Psychiatry notes reviewed 11/02/16 10:59 *Cognitive deficit/Behavioral dyscontrol- Per psych. Notes reviewed. Still variable behaviors. *Malnutrition- due to severe pacing, minimal rest. I did consult pasteurizer helper-await evaluation. Encourage oral intake. She will need extensive calories to offset activity. Johnnie count. Add supplements. *Elevated LFTs, mild- assess Hep Panel. Repeat CMP in AM for stability *HLD- Avoid statins given risk of Rhabdo with activity level. Mildly elevated CPK. Trending down. 11/07/16 18:10 Will review hospital course thoroughly and consider medication options 11/08/16 11:39 Continue current care 11/09/16 12:46 Continue current care 11/13/16 18:28 Increase Ativan to 1mg PO TID 11/14/16 18:35 Decrease Ativan to 1mg PO BID 11/15 Continue with psychiatric care as per Dr Ward. Overall behaviors appear to be improved Elevated LFTs/Weight loss-LFTs continued to trend down. Today AST- 43, ALT- 89. Will continue to monitor. Blood pressure has been well controlled. She did have one low pressure last night. Will continue to follow. Colace for ongoing bowel motivation Ultracet as needed for pain control. Continue to provide a safe environment for patient 11/16/16 11:08 Continue current care
[2016-11-17] MEDS: LORazepam INTENSOL 1mg/0.5ml ORAL LIQUID SL PRN ×3 (14:30→22:11)
--- NOTE | 2016-11-17 15:37 | Procedure Note ---
Procedure Note: Spoke with makayla's family including both of her children. They would like Pallative care and are working on hospice and halfway placement. Discussed medications, support with oxygen and NPO therapeutic. They agree with conservative measures. Discussed with [facility] social workers to assist with possible placement. Plan is to start Roxanol 2 milligrams sublingual every 2 hours as well as Ativan 0.5 milligrams sublingual every 4 hours as needed.
[2016-11-17] MEDS: MORPHINE SULFATE 10mg/0.5ml ORAL LIQ SL PRN (22:10)
[2016-11-17] MEDS: CHLORPROMAZINE 25 MG PO SCH (22:12)
[2016-11-17] MEDS: MELATONIN 1 MG TABLET PO SCH (22:12)
[2016-11-18] MEDS: MORPHINE SULFATE 10mg/0.5ml ORAL LIQ SL PRN ×6 (07:37→21:36)
[2016-11-18] MEDS: LORazepam INTENSOL 1mg/0.5ml ORAL LIQUID SL PRN ×5 (07:38→21:37)
[2016-11-18] MEDS: OMEPRAZOLE 20 MG CAPSULE PO SCH (10:07)
[2016-11-18] MEDS: MELOXICAM 15 MG TABLET PO SCH (10:07)
[2016-11-18] MEDS: CarBAMazepine 200 MG TABLET PO SCH ×2 (10:08→11:08)
[2016-11-18] MEDS: GABAPENTIN 400 MG CAPSULE PO SCH ×3 (10:08→15:05)
[2016-11-18] MEDS: LORazepam 1 MG TABLET PO SCH ×2 (10:08→11:09)
[2016-11-18] MEDS: CHLORPROMAZINE 25 MG PO SCH (10:09)
[2016-11-18] MEDS: TRAMADOL 50 MG TABLET PO SCH ×2 (10:09→15:05)
--- NOTE | 2016-11-18 16:05 | Neuropsych Progress Note ---
[facility] Subjective Date: 11/18/16 - Sujective/Severity of Illness Medications: Lorazepam (Ativan Intensol) 0.5 mg SL Q4H PRN PRN Reason: Agitation Last Admin: 11/18/16 14:00 Dose: 0.5 mg Morphine Sulfate (Roxanol Oral Liq) 2 mg SL Q2H PRN Last Admin: 11/18/16 14:00 Dose: 2 mg Subjective: Patient seen and chart examined. Nursing reports that patient is either sleeping or screaming whenever she is awake. She continues to have disorganized behavior, disoriented to place and time. Her liver enzymes appears to be trending downward since Depakote was discontinued. Patient sleeps well and has a good appetite even though it has decreased. On face to face the patient is resting quietly in bed. Family have decided to opt for palliative care given her poor oral intake and level of cognitive impairment. She has not been able to eat much today and she is unable to take her medication. The family is working with her with case management to identify a placement for her. Start Time: 13:45 Stop Time: 14:00 Mental Status Exam Vitals: Last Vital Signs Temp 98.7 F 11/18/16 09:36 Pulse 68 11/18/16 09:36 Resp 18 11/18/16 09:36 BP 126/78 11/18/16 09:36 Pulse Ox 98 11/18/16 09:36 Height: 1.5 m Weight: 45.2 kg - Mental Status Exam Muscle Strength/Tone: Weak (risk of fall) Dressing: Casual Grooming: Fair Attitude: Uncooperative Motor Activity: Retardation, Hyperactive (when awake) Eye Contact: Poor Speech: Pressured, Other (Loud and dysarthric) Volume: Soft Rhythm: Mumbled, Paucity of Language Orientation: Disoriented to time, Disoriented to person, Disoriented to place, Disoriented to situation Mood: Irritable, Anxious, Fearful Rate of Thoughts: Delayed Thought Organization: Disorganized, Confused Associations: Illogical Abstract Reasoning: Impaired, concrete Thought Content: Other (frequently regresses, speaks in childlike voice about past trauma) Perception/Psychotic: Perception Normal, Other Language: Naming Impaired Fund of Knowledge: Poor fund of knowledge Memory: Poor-immediate, Poor-recent, Poor-remote Suicidal Ideation: None Homicidal Ideation: None Insight: Impaired Judgement: Impaired Impulse Control: Poor (though improving) - Laboratory Result Diagrams: 11/17/16 04:50 11/17/16 04:50 Laboratory Results - last 24 hr 11/17/16 21:15 Glucometer 116 Assessment and Plan (1) Major neurocognitive disorder Problem details: with behavioral disturbance, due to frontotemporal brain disease Current visit: Yes Status: Chronic (2) Frontotemporal brain disease Current visit: Yes Status: Chronic Family have opted for Palliative care given her poor oral intake. Await evaluation by Hospice and determine appropriate disposition. Hospital Course Summary Disclaimer: The visit summary below is not to be considered part of the above Progress Note. Hospital Course: 10/24/16 08:47 Agree with admission 1. Chart reviewed in detail -labs from Sep, 2016 (CBC, CMP, and lipid panel) were fairly unremarkable -Pt was unable to provide any personal history 2. Mild elevations in LFTs -new compared to labs from September -?med related 3. CKD -noted in chart -renal function is stable with creatinine of 0.7 and GFR of 86 4. Psych -unable to examine, doubt we would be able to successfully obtain any imaging or labs -eval pending 10/25/16 16:40 10/25/16- Medical team Tamra is rapidly pacing the halls. This is documented to have been ongoing for some time- Suspect this is the main cause of her significant weight loss. She is also not eating. Add PO supplements 4x/day. She will need to have excess calories to offset the excessive exercise. Attending adjusting meds. Remeron is noted- hope this will help appetite. Mild elevated LFTs- recheck labs in AM. Assess CPK as well due to exercise amounts. Chart reviewed for collateral information. 10/26/16 10:29 Elevated LFTs -AST decreased slightly to 37, and ALT is now in normal range at 51 -CK is elevated at 277 (range is 30-135) -Lipid panel is pending, but in September 2016, Trigs 74, HDL 46, LDL (142H), VLDL 15 , Cardiac risk 4.4, nonHDL 157 Mild protein calorie malnutrition -Encourage oral intake -Dietitian has been consulted Labs reviewed -TSH is normal at 1.41 -Vitamin B12 and folate are pending -RPR: Nonreactive -Urinalysis is negative for UTI Psychiatry notes reviewed -Discontinue Paxil -Increase Remeron dose -Negative timing of Zyprexa to HS -Trial of gabapentin later today 10/29/16 13:39 Labs reviewed -Cholesterol level elevated -Vitamin B12 is low range of normal; folate was normal -recheck LFTs, CPK to ensure they are trending down on 10/31/16 Vital signs overall remain stable. Mild PCM -Talent Development Specialist recommended Boost Breeze with every meal. Psychiatry notes reviewed -increase gabapentin to 400mg po tid -goal is to reduce zyprexa which could exacerbate restlessness. -test dose of guanfacine -considering depakote 10/31/16 15:11 CMP obtained this morning, AST was down to 33, but ALT has increased slightly to 56. Alkaline phosphatase is normal at 81. Remainder of chemistries remained stable. Otherwise, medically stable, though need to encourage oral intake. Psychiatry notes reviewed 11/02/16 10:59 *Cognitive deficit/Behavioral dyscontrol- Per psych. Notes reviewed. Still variable behaviors. *Malnutrition- due to severe pacing, minimal rest. I did consult scene shifter-await evaluation. Encourage oral intake. She will need extensive calories to offset activity. Johnnie count. Add supplements. *Elevated LFTs, mild- assess Hep Panel. Repeat CMP in AM for stability *HLD- Avoid statins given risk of Rhabdo with activity level. Mildly elevated CPK. Trending down. 11/07/16 18:10 Will review hospital course thoroughly and consider medication options 11/08/16 11:39 Continue current care 11/09/16 12:46 Continue current care 11/13/16 18:28 Increase Ativan to 1mg PO TID 11/14/16 18:35 Decrease Ativan to 1mg PO BID 11/15 Continue with psychiatric care as per Dr Ward. Overall behaviors appear to be improved Elevated LFTs/Weight loss-LFTs continued to trend down. Today AST- 43, ALT- 89. Will continue to monitor. Blood pressure has been well controlled. She did have one low pressure last night. Will continue to follow. Colace for ongoing bowel motivation Ultracet as needed for pain control. Continue to provide a safe environment for patient 11/16/16 11:08 Continue current care
[2016-11-19] MEDS: LORazepam INTENSOL 1mg/0.5ml ORAL LIQUID SL PRN ×7 (02:09→23:55)
[2016-11-19] MEDS: MORPHINE SULFATE 10mg/0.5ml ORAL LIQ SL PRN ×10 (02:09→23:02)
--- NOTE | 2016-11-19 17:26 | Discharge Instructions ---
Discharge Plan - Med Rec/Dispo Referrals/Follow Up: Rubens Douglsa MD [Other] (Tester Electronic Scale will see patient on rounds at the facility for Hosp. follow- up. . No Mental Health appt. scheduled, due to patient's advanced dementia.) Additional Instructions: Reasons for Admission: Agitation, impulsive and impaired cognition Discharge Diagnosis: 1.Frontotemporal Dementia 2. Major Neurocognitive disorder with behavioral disturbance 3. Chronic psychosis IN CASE OF PSYCHIATRIC EMERGENCY, CONTACT GENERATIONS STAFF AT [phone] ( available 24 hrs daily). Prescriptions: Discontinued Tizanidine HCl 2 mg PO Q8H PRN PRN Reason: Muscle Spasm PEG 3350 17gm PACKET [Miralax] 17 gm PO Q3D Meloxicam [Mobic] 15 mg PO DAILY RisperiDONE [RisperDAL] 0.5 mg PO Q4H PRN PRN Reason: Agitation Haloperidol Inj [Haldol] 2.5 mg IM Q4H PRN PRN Reason: Agitation ALPRAZolam [Xanax] 0.5 mg PO DAILY PRN PRN Reason: Anxiety Mirtazapine [Remeron] 7.5 mg PO HS OLANZapine [Zyprexa] 5 mg PO DAILY Paroxetine [Paxil] 40 mg PO DAILY Melatonin 3 mg PO HS No Action ALPRAZolam [Xanax] 0.5 mg PO HS - Disposition 04 To [facility] Home/Facility
--- NOTE | 2016-11-19 17:31 | Extended Care Facility Orders ---
Admission Orders Admit to:: [facility] Allergies/Adverse Reactions: Allergies No Known Drug Allergies Allergy (Verified 10/31/16 13:13) No Known Adverse Drug Reactions Adverse Reaction (Verified 10/31/16 13:14) Admitting Diagnosis: Major neurocognitive disorder w/behavioral disturb Admitting Physician: Emily Rojo MD Attending Physician: Emily Rojo MD Code Status: Do Not Resuscitate Anticiapted Length of Stay: greater than 30 days Rehab Potential: poor Rehab Prognosis: poor Diet: 11/14/16 Dinner Regular Diet [DIET] Diet Modifications: Food Consistency: PUREE Other Diet Modifiers: CALCOUNT Snf Certification: I certify that SNF services are required to be given on an Inpatient basis because of the patients need for [facility] care on a continuing basis for the condition(s) for which he/she received inpatient hospital services prior to his/her transfer to the SNF. SNF inpatient care is necessary for the following reasons Indication for Snf: Not Applicable - Additional Information Referrals: Rubens Douglas MD [Other] (Tax Agent will see patient on rounds at the facility for Hosp. follow- up. . No Mental Health appt. scheduled, due to patient's advanced dementia.)
--- NOTE | 2016-11-19 20:41 | Neuropsych Progress Note ---
[facility] Subjective Date: 11/19/16 - Sujective/Severity of Illness Medications: Lorazepam (Ativan Intensol) 1 mg SL Q4H PRN PRN Reason: Agitation Last Admin: 11/19/16 19:17 Dose: 1 mg Morphine Sulfate (Roxanol Oral Liq) 15 - 20 mg SL Q2H PRN Last Admin: 11/19/16 19:16 Dose: 20 mg Subjective: Patient seen and chart examined.Nursing reports that patient is either sleeping or screaming whenever she is awake. She continues to have disorganized behavior , disoriented to place and time. Her liver enzymes appears to be trending downward since Depakote was discontinued. Patient sleeps well at night . Her appetite has been poor due to poor swallowing On face to face the patient is resting quietly in bed. Family have decided to opt for palliative care given her poor oral intake and level of cognitive impairment. She has not been able to eat much today and she is unable to take her medication. Hospice has been here to see and the plan will be for discharge to [facility] with hospice care. Start Time: 18:30 Stop Time: 18:45 Mental Status Exam Vitals: Last Vital Signs Temp 97.6 F 11/19/16 06:41 Pulse 53 L 11/19/16 06:41 Resp 16 11/19/16 06:41 BP 110/60 11/19/16 06:41 Pulse Ox 99 11/19/16 06:41 Height: 1.5 m Weight: 45.2 kg - Mental Status Exam Muscle Strength/Tone: Weak (risk of fall) Dressing: Casual Grooming: Fair Attitude: Uncooperative Motor Activity: Retardation Eye Contact: Poor Speech: Other (Loud and dysarthric when awake) Volume: Soft Rhythm: Mumbled, Paucity of Language Orientation: Disoriented to time, Disoriented to person, Disoriented to place, Disoriented to situation Mood: Anxious Affect: Flat Rate of Thoughts: Delayed Thought Organization: Disorganized, Confused Associations: Illogical Abstract Reasoning: Impaired, concrete Thought Content: Other (frequently regresses, speaks in childlike voice about past trauma) Perception/Psychotic: Perception Normal, Other Language: Naming Impaired Fund of Knowledge: Poor fund of knowledge Memory: Poor-immediate, Poor-recent, Poor-remote Suicidal Ideation: None Homicidal Ideation: None Insight: Impaired Judgement: Impaired Impulse Control: Poor - Laboratory Result Diagrams: 11/17/16 04:50 11/17/16 04:50 Assessment and Plan (1) Major neurocognitive disorder Problem details: with behavioral disturbance, due to frontotemporal brain disease Current visit: Yes Status: Chronic (2) Frontotemporal brain disease Current visit: Yes Status: Chronic Discharge patient to [facility] tomorrow with hospice care Hospital Course Summary Disclaimer: The visit summary below is not to be considered part of the above Progress Note. Hospital Course: 10/24/16 08:47 Agree with admission 1. Chart reviewed in detail -labs from Sep, 2016 (CBC, CMP, and lipid panel) were fairly unremarkable -Pt was unable to provide any personal history 2. Mild elevations in LFTs -new compared to labs from September -?med related 3. CKD -noted in chart -renal function is stable with creatinine of 0.7 and GFR of 86 4. Psych -unable to examine, doubt we would be able to successfully obtain any imaging or labs -eval pending 10/25/16 16:40 10/25/16- Medical team Tamra is rapidly pacing the halls. This is documented to have been ongoing for some time- Suspect this is the main cause of her significant weight loss. She is also not eating. Add PO supplements 4x/day. She will need to have excess calories to offset the excessive exercise. Attending adjusting meds. Remeron is noted- hope this will help appetite. Mild elevated LFTs- recheck labs in AM. Assess CPK as well due to exercise amounts. Chart reviewed for collateral information. 10/26/16 10:29 Elevated LFTs -AST decreased slightly to 37, and ALT is now in normal range at 51 -CK is elevated at 277 (range is 30-135) -Lipid panel is pending, but in September 2016, Trigs 74, HDL 46, LDL (142H), VLDL 15 , Cardiac risk 4.4, nonHDL 157 Mild protein calorie malnutrition -Encourage oral intake -Dietitian has been consulted Labs reviewed -TSH is normal at 1.41 -Vitamin B12 and folate are pending -RPR: Nonreactive -Urinalysis is negative for UTI Psychiatry notes reviewed -Discontinue Paxil -Increase Remeron dose -Negative timing of Zyprexa to HS -Trial of gabapentin later today 10/29/16 13:39 Labs reviewed -Cholesterol level elevated -Vitamin B12 is low range of normal; folate was normal -recheck LFTs, CPK to ensure they are trending down on 10/31/16 Vital signs overall remain stable. Mild PCM -Retail Operations Manager recommended Boost Breeze with every meal. Psychiatry notes reviewed -increase gabapentin to 400mg po tid -goal is to reduce zyprexa which could exacerbate restlessness. -test dose of guanfacine -considering depakote 10/31/16 15:11 CMP obtained this morning, AST was down to 33, but ALT has increased slightly to 56. Alkaline phosphatase is normal at 81. Remainder of chemistries remained stable. Otherwise, medically stable, though need to encourage oral intake. Psychiatry notes reviewed 11/02/16 10:59 *Cognitive deficit/Behavioral dyscontrol- Per psych. Notes reviewed. Still variable behaviors. *Malnutrition- due to severe pacing, minimal rest. I did consult pediatric nurse practitioner-await evaluation. Encourage oral intake. She will need extensive calories to offset activity. Johnnie count. Add supplements. *Elevated LFTs, mild- assess Hep Panel. Repeat CMP in AM for stability *HLD- Avoid statins given risk of Rhabdo with activity level. Mildly elevated CPK. Trending down. 11/07/16 18:10 Will review hospital course thoroughly and consider medication options 11/08/16 11:39 Continue current care 11/09/16 12:46 Continue current care 11/13/16 18:28 Increase Ativan to 1mg PO TID 11/14/16 18:35 Decrease Ativan to 1mg PO BID 11/15 Continue with psychiatric care as per Dr Ward. Overall behaviors appear to be improved Elevated LFTs/Weight loss-LFTs continued to trend down. Today AST- 43, ALT- 89. Will continue to monitor. Blood pressure has been well controlled. She did have one low pressure last night. Will continue to follow. Colace for ongoing bowel motivation Ultracet as needed for pain control. Continue to provide a safe environment for patient 11/16/16 11:08 Continue current care
[2016-11-20] MEDS: LORazepam INTENSOL 1mg/0.5ml ORAL LIQUID SL PRN (02:10)
[2016-11-20] MEDS: MORPHINE SULFATE 10mg/0.5ml ORAL LIQ SL PRN ×2 (02:10→10:35)
[2016-11-20] MEDS ORDERED: LORazepam INTENSOL 1mg/0.5ml ORAL LIQUID SL PRN (06:26)
[2016-11-20 08:10] VITALS: BP 98/61; PULSE 69; RESP 2; TEMP 98.7; O2SAT 90
--- NOTE | 2016-11-20 09:24 | Discharge Summary ---
Discharge Plan - Med Rec/Dispo Referrals/Follow Up: Rubens Douglas MD [Other] (Dragger will see patient on rounds at the facility for Hosp. follow- up. . No Mental Health appt. scheduled, due to patient's advanced dementia.) Additional Instructions: Reasons for Admission: Agitation, impulsive and impaired cognition Discharge Diagnosis: 1.Frontotemporal Dementia 2. Major Neurocognitive disorder with behavioral disturbance 3. Chronic psychosis IN CASE OF PSYCHIATRIC EMERGENCY, CONTACT GENERATIONS STAFF AT [phone] ( available 24 hrs daily). Prescriptions: New Morphine Sulfate Oral Liq [Roxanol Oral Liq] 15 - 20 mg SL Q2H PRN #30 ml PRN Reason: pain LORazepam INTENSOL [Ativan Intensol] 1 - 2 mg SL Q2H PRN #30 ml PRN Reason: anxiety Discontinued Tizanidine HCl 2 mg PO Q8H PRN PRN Reason: Muscle Spasm PEG 3350 17gm PACKET [Miralax] 17 gm PO Q3D Meloxicam [Mobic] 15 mg PO DAILY RisperiDONE [RisperDAL] 0.5 mg PO Q4H PRN PRN Reason: Agitation Haloperidol Inj [Haldol] 2.5 mg IM Q4H PRN PRN Reason: Agitation ALPRAZolam [Xanax] 0.5 mg PO DAILY PRN PRN Reason: Anxiety Mirtazapine [Remeron] 7.5 mg PO HS OLANZapine [Zyprexa] 5 mg PO DAILY Paroxetine [Paxil] 40 mg PO DAILY Melatonin 3 mg PO HS No Action ALPRAZolam [Xanax] 0.5 mg PO HS - Disposition 04 To [facility] Home/Facility
--- NOTE | 2016-11-21 15:38 | Neuropsychiatric Disch Summary ---
Discharge Information Date of admission: 10/23/16 20:00 Anticipated date of discharge: 11/20/16 Attending Physician: Emily Rojo MD Primary care physician: Robby Barraza Consults: 10/23/16 21:37 Case Management Consult [CONS] Routine Reason For Exam: medical management Physician Consult [CONS] Routine Consulting Provider: Tiera Stiles Reason For Exam: medical management Ordering Provider has Notified Room Service Waiter: No 10/24/16 21:10 Dietary Consult [CONS] Routine Comment: Reason For Exam: low prealbumin, dementia. - Discharge Diagnosis (1) Major neurocognitive disorder Problem Details: with behavioral disturbance, due to frontotemporal brain disease Status: Chronic (2) Frontotemporal brain disease Status: Chronic - Laboratory Labs: 11/17/16 04:50 11/17/16 04:50 Date of Admission: 10/23/16 20:00 History of Present Illness: HPI by Dr. Rojo Patient is a 56-year-old female with a history of frontal lobe dementia who was admitted to [facility] on 10/23/16 from her NH due to increased aggression, agitation, pacing, mood changes. NH reported decreased in appetite with 14 lb. weight loss and difficulty falling asleep as well. PMH: anxiety, depression, CKD, kidney stones, dyslipidemia, OA, TMJ IPatient is sleeping during time of rounds and when I attempted to wake her (as she was lying upside down in bed), she responded "this sherri" and then went back to sleep. Per nursing staff, aron has been anxious, pacing, exit-seeking since admission. She did sleep 5+ hours overnight but this was interrupted at times. Patient only eats/drinks if nursing staff can catch her as she is pacing the halls. She does not respond to prompts/redirection. Has received multiple PRNs (Ativan and PO Risperdal at different times) since admission that have not been helpful. Unable to obtain further history from patient. Hospital Course This is a general summary of the patient's hospital course. For more details refer to the complete medical record. Hospital course: Patient was admitted to the [facility] unit on 10/23/16. She was placed on suicide and homicide precautions due to the agitation. She required persistent constant observation throughout this hospital stay due to her impulsive behavior, constant pacing, agitation, impaired cognition and poor insight. There was always a feeling that patient had imminent threat of either hurting herself or some other client. She often ran toward the exit door without knowing where she was going. Based on the symptoms and her behavioral disturbance, patient was diagnosed with Major Neurocognitive disorder probably due to Frototemporal dementia of the behavioral variant. She had various trials of anti-psychotics after obtaining consent from her family. However, she never responded to Risperidone or Olanzapine. She also had limited trial of Depkote which was later discontinued due to her elevated liver enzymes. Patient was later started on Tegretol to target the hyperactive behavior, impulsivity, flight of ideas and constant pacing, but this did not have any significant effect. During this treatment, course there was a suspicion that patient may have had Dick's disease due to her Impaired cognition and elevated enzymes. However, her Ceruloplasmin level came back to be WNL. Through out this hospital course, patient was followed by the hospitalist group who managed her co-morbid medical conditions. Since patient's symptoms was not improving as shown by either she was yelling on top of her lung when awake or sleeping, coupled with the fact that she developed decreased appetite with impaired swallowing. The family decided it was time for palliative care. She was then transferred to the [facility] with Hospice support. Discharge Plan - Med Rec/Dispo Referrals/Follow Up: Rubens Douglas MD [Other] (Saw Repairer will see patient on rounds at the facility for Hosp. follow- up. . No Mental Health appt. scheduled, due to patient's advanced dementia.) Additional Instructions: Reasons for Admission: Agitation, impulsive and impaired cognition Discharge Diagnosis: 1.Frontotemporal Dementia 2. Major Neurocognitive disorder with behavioral disturbance 3. Chronic psychosis IN CASE OF PSYCHIATRIC EMERGENCY, CONTACT GENERATIONS STAFF AT [phone] ( available 24 hrs daily). Prescriptions: New Morphine Sulfate Oral Liq [Roxanol Oral Liq] 15 - 20 mg SL Q2H PRN #30 ml PRN Reason: pain LORazepam INTENSOL [Ativan Intensol] 1 - 2 mg SL Q2H PRN #30 ml PRN Reason: anxiety Discontinued Tizanidine HCl 2 mg PO Q8H PRN PRN Reason: Muscle Spasm PEG 3350 17gm PACKET [Miralax] 17 gm PO Q3D Meloxicam [Mobic] 15 mg PO DAILY RisperiDONE [RisperDAL] 0.5 mg PO Q4H PRN PRN Reason: Agitation Haloperidol Inj [Haldol] 2.5 mg IM Q4H PRN PRN Reason: Agitation ALPRAZolam [Xanax] 0.5 mg PO DAILY PRN PRN Reason: Anxiety Mirtazapine [Remeron] 7.5 mg PO HS OLANZapine [Zyprexa] 5 mg PO DAILY Paroxetine [Paxil] 40 mg PO DAILY Melatonin 3 mg PO HS No Action ALPRAZolam [Xanax] 0.5 mg PO HS - Disposition 50 Discharged To Hospice-Home
== END 2016-11-20 10:55 | disposition hospice, home (50) | DRG 57 ==
LOC: ED 19:29 → GEN 19:55 → ED 19:55 → GEN 20:00
PROVIDERS: ADMIT Psychiatry & Neurology Psychiatry; ATTEND Psychiatry & Neurology Psychiatry